=== PATIENT | male | born 1950 | race Caucasian/White ===

== ENCOUNTER 2018-10-13 19:20 | Observation (INO) ==
[2018-10-13] MEDS ORDERED: Nitroglycerin 0.4 MG TAB.SUBL SL PRN (19:55)
[2018-10-13 20:04] LABS: Basophils # 0.1 K/mcL (0.0-0.2); Basophils % 0.5 %; Eosinophils # 0.2 K/mcL (0.0-0.6); Eosinophils % 1.6 %; Hematocrit 47.6 % (37.5-50.1); Hemoglobin 15.7 g/dL (12.9-16.9); Immature Granulocytes % 0.3 % (0-4); Lymphocytes # 1.3 K/mcL (0.6-4.6); Lymphocytes % 11.6 %; Mean Corpuscular Hemoglobin 30.2 pg (28.0-33.3); Mean Corpuscular Volume 91.5 fL (83.0-100.0); Mean Platelet Volume 11.7 fL (9.4-12.4); Monocytes # 0.7 K/mcL (0.0-1.3); Monocytes % 6.6 %; Neutrophils # 8.6 K/mcL (1.6-8.9); Platelet Count 205 K/mcL (140-400); Red Cell Distribution Width 13.2 % (11.5-14.5); Segmented Neutrophils % 79.4 %
[2018-10-13 20:13] LABS: INR 2.3; Prothrombin Time 25.7 Seconds (9.4-12.1)
[2018-10-13 20:16] LABS: Activated Partial Thrombo Time 62.6 Seconds (26.0-36.0)
[2018-10-13 20:26] LABS: BUN/Creatinine Ratio 22 (6-26); Blood Urea Nitrogen 22 mg/dL (8-23); Calcium 9.3 mg/dL (8.6-10.3); Carbon Dioxide 29 mEq/L (23-29); Chloride 101 mEq/L (98-107); Glucose 194 mg/dL (70-105); Osmolality,Calculated 295 (280-300); Potassium 3.4 mEq/L (3.5-5.1); Sodium 138 mEq/L (136-145); eGFR For Non-African Americans > 60 (> 60)
[2018-10-13 20:36] LABS: Troponin I 0.08 ng/mL (< 0.04)
--- NOTE | 2018-10-13 20:42 | Emergency Department Note ---
Disposition Clinical Impression: Elevated troponin Chest pain Qualifiers: Chest pain type: precordial pain Qualified Code(s): R07.2 - Precordial pain Atrial fibrillation Qualifiers: Atrial fibrillation type: unspecified Qualified Code(s): I48.91 - Unspecified atrial fibrillation Congestive heart failure Qualifiers: Heart failure type: systolic Heart failure chronicity: chronic Qualified Code(s): I50.22 - Chronic systolic (congestive) heart failure Disposition: Admitted As Inpatient SOB HPI - General Chief Complaint: ED Shortness of Breath/Dyspnea Stated Complaint: SOB Time Seen by Provider: 10/13/18 19:36 Source: patient, family Limitations: no limitations Nursing Notes Reviewed: Yes Vital Signs Reviewed: Yes - History of Present Illness Patient is a 68-year-old male who presents emergency department with complaints of chest pain and shortness of breath. The patient was reportedly out at dinner and walking when he began to feel short of breath with chest pressure which he describes as dull and bilateral. He took 1 nitroglycerin without improvement in his pain. He notes that he was discharged and doing well on his medications, following his fluid restriction diet. He last followed up with Dr. Bland this week. Otherwise he denies any dizziness, back pain, abdominal pain, nausea, vomiting, diarrhea, epistaxis, hematemesis, or melena. The patient was recently admitted and underwent cardiac catheterization with placement of 2 stents. He was discharged on 09/02/18 after undergoing cardiac catheterization with stenting of the LAD. He was found to have EF of 40-45% with LV systolic dysfunction and new onset atrial fibrillation for which he was placed on metoprolol, eliquis, plavix, and aspirin. - Related Data Home Medications Medication Instructions Recorded Confirmed RX: Glucosamine HCl/Chondr Foy A Na 1 tab PO DAILY 03/27/17 09/26/18 [[facility] Glucosamine-Ch[facility]r Tablet] RX: Omeprazole [PriLOSEC] 40 mg PO DAILY 03/27/17 09/26/18 RX: Zolpidem [Ambien] 10 mg PO HS PRN 03/27/17 09/27/18 RX: Acetaminophen [Tylenol 650 mg PO Q48H 09/26/18 09/26/18 Arthritis] RX: Gabapentin [Neurontin] 300 mg PO QID 09/26/18 09/26/18 RX: Lisinopril-HCTZ 10-12.5 2 each PO DAILY 09/26/18 09/26/18 [Prinzide 10-12.5] Previous Rx's Medication Instructions Recorded Apixaban [Eliquis] 5 mg PO BID #60 tablet 09/27/18 RX: Aspirin 81 mg PO DAILY #30 tab.chew 10/04/18 RX: Atorvastatin [Lipitor] 40 mg PO HS #30 tablet 10/04/18 RX: Clopidogrel [Plavix] 75 mg PO DAILY #30 tablet 10/04/18 RX: Diltiazem CD (24hr) [Cardizem 180 mg PO DAILY #30 cap.er.24h 10/04/18 CD] RX: Furosemide [Lasix] 40 mg PO BID #120 tablet 10/04/18 RX: Metoprolol XL (24 HR) Succ 150 mg PO DAILY #90 tab.er.24h 10/04/18 [Toprol Xl] RX: Nitroglycerin 0.4 mg SL Q5MIN PRN #30 tab.subl 10/04/18 RX: Potassium Chloride 40 meq PO DAILY #60 tab.er.prt 10/04/18 RX: metOLazone [Zaroxolyn] 2.5 mg PO DAILY #30 tablet 10/04/18 Allergies Allergy/AdvReac Type Severity Reaction Status Date / Time No Known Allergies Allergy Verified 10/13/18 19:29 Review of Systems: ROS per history of present illness, all other systems reviewed and negative or normal. All systems ED: reviewed and negative except as stated. Review of Systems: As Per HPI Past Medical History - Past Medical History Medical history: Reports: arthritis, atrial fibrillation, CHF, coronary artery disease, GERD, hypertension Surgical history: Reports: appendectomy, herniorrhaphy, orthopedic, other Psychiatric history: Reports: no psych history - Social History Smoking Status: Never smoker Smokeless Tobacco Status: No Alcohol use: Reports: none Drug use: Reports: none Physical Exam General: Conversant. No apparent distress. Follow commands. Appears stated age. Neck: No JVD. Trachea midline. Neck supple. Eyes: PERRL. No scleral icterus. HENT: Normocephalic and atraumatic. Moist mucus membranes. Cardiovascular: Regular rate and rhythm. Normal S1 and S2. No murmurs appreciated. Normal capillary refill. Extremities well perfused with 2+ distal pulses bilaterally. Mild edema on right lower extremity. No chest wall tenderness. Pulmonary: Normal and equal breath sounds bilaterally, anteriorly and posteriorly. No wheezes, rales, or rhonchi. Not in respiratory distress. Speaks in full sentences. Abdomen: Soft, nondistended, and tontender. No bruits or masses. No guarding. Neuro: Alert and oriented x3. No slurred speech. No focal deficits noted. Skin: No rashes noted on visualized skin. Musculoskeletal: No bony abnormalities visualized. Moves all extremities. Psych: Normal mood. Pleasant. Makes appropriate eye contact. - General Limitations: no limitations General appearance: alert Course - Reevaluation(s) Reevaluation #1: Discussed case with oncall automatic print developer, Dr. Mendez who recommends placing the patient on heparin drip and will consult to see the patient Time: 21:15 Vital Signs Temperature 98.1 F 10/13/18 19:30 Pulse Rate 75 10/13/18 19:30 Respiratory Rate 15 10/13/18 19:30 Blood Pressure 140/98 10/13/18 19:30 O2 Sat by Pulse Oximetry 94 10/13/18 19:30 Temperature 98.1 F 10/13/18 19:30 Pulse Rate 96 10/13/18 20:18 Respiratory Rate 18 10/13/18 20:18 Blood Pressure 122/103 10/13/18 20:18 O2 Sat by Pulse Oximetry 96 10/13/18 20:18 Oxygen Delivery Oxygen Delivery Nasal Cannula Shortness of Breath/Dyspnea - [facility] Narrative Medical decision making narrative: 68-year-old male with history of CAD, CHF who presents the emergency department with plans of shortness of breath and chest pain. The patient had recent cardiac catheterization and was found to have new onset A. fib at that time with global LV diastolic dysfunction. The patient on arrivals vital signs are stable. Did give the patient nitroglycerin without significant improvement in his symptoms. Obtained laboratory evaluation for ACS including CBC, BMP, troponin, EKG and chest x-ray. Troponin elevated at 0.08. Troponin showed ST depression in aVF of ultimately 1 mm without reciprocal changes. Otherwise the patient persists in A. fib. The patient's continued symptoms and significant cardiac history did contact automatic print developer on-call, Dr. Mendez who agrees with plan for admission and recommends heparin drip, noting that there is no need to wait until he is 12 hours out from taking his eliquis. Patients heparin to be followed by PTT given his ooutpatient use of eliquis. Discussed case with on- call hospitalist Dr. Herzog who agrees with plan for admission and accepts the patient to the inpatient service. Patient agrees with and understands course of treatment plan including plan for admission. All questions answered. - Medical Records Medical records reviewed: Yes I reviewed the patient's medical records. - Lab Data Lab results reviewed: Yes I reviewed the patient's lab results. Result diagrams: 10/13/18 19:48 10/13/18 19:48 Lab Results 10/13/18 10/13/18 10/13/18 Range/Units 19:48 19:48 19:48 WBC 10.8 (4.3-11.1) K/mcL RBC 5.20 (4.19-5.50) M/mcL Hgb 15.7 (12.9-16.9) g/dL Hct 47.6 (37.5-50.1) % MCV 91.5 (83.0-100.0) fL MCH 30.2 (28.0-33.3) pg MCHC 33.0 (31.6-35.5) g/dL RDW 13.2 (11.5-14.5) % Plt Count 205 (140-400) K/mcL MPV 11.7 (9.4-12.4) fL Immature Gran % 0.3 (0-4) % Seg Neutrophils % 79.4 % Lymphocytes % 11.6 % Monocytes % 6.6 % Eosinophils % 1.6 % Basophils % 0.5 % Neutrophils # 8.6 (1.6-8.9) K/mcL Lymphocytes # 1.3 (0.6-4.6) K/mcL Monocytes # 0.7 (0.0-1.3) K/mcL Eosinophils # 0.2 (0.0-0.6) K/mcL Basophils # 0.1 (0.0-0.2) K/mcL PT 25.7 H (9.4-12.1) Seconds INR 2.3 APTT 62.6 H (26.0-36.0) Seconds Heparin Anti-Xa, Unfract (0.30-0.70) IU/mL Sodium 138 (136-145) mEq/L Potassium 3.4 L (3.5-5.1) mEq/L Chloride 101 (98-107) mEq/L Carbon Dioxide 29 (23-29) mEq/L BUN 22 (8-23) mg/dL Creatinine 0.99 (0.70-1.30) mg/dL Est GFR ( Amer) > 60 (> 60) Est GFR (Non-Af Amer) > 60 (> 60) BUN/Creatinine Ratio 22 (6-26) Glucose 194 H (70-105) mg/dL Calculated Osmolality 295 (280-300) Calcium 9.3 (8.6-10.3) mg/dL Troponin I 0.08 H* (< 0.04) ng/mL 10/13/18 Range/Units 21:38 WBC (4.3-11.1) K/mcL RBC (4.19-5.50) M/mcL Hgb (12.9-16.9) g/dL Hct (37.5-50.1) % MCV (83.0-100.0) fL MCH (28.0-33.3) pg MCHC (31.6-35.5) g/dL RDW (11.5-14.5) % Plt Count (140-400) K/mcL MPV (9.4-12.4) fL Immature Gran % (0-4) % Seg Neutrophils % % Lymphocytes % % Monocytes % % Eosinophils % % Basophils % % Neutrophils # (1.6-8.9) K/mcL Lymphocytes # (0.6-4.6) K/mcL Monocytes # (0.0-1.3) K/mcL Eosinophils # (0.0-0.6) K/mcL Basophils # (0.0-0.2) K/mcL PT (9.4-12.1) Seconds INR APTT (26.0-36.0) Seconds Heparin Anti-Xa, Unfract 1.14 H* (0.30-0.70) IU/mL Sodium (136-145) mEq/L Potassium (3.5-5.1) mEq/L Chloride (98-107) mEq/L Carbon Dioxide (23-29) mEq/L BUN (8-23) mg/dL Creatinine (0.70-1.30) mg/dL Est GFR ( Amer) (> 60) Est GFR (Non-Af Amer) (> 60) BUN/Creatinine Ratio (6-26) Glucose (70-105) mg/dL Calculated Osmolality (280-300) Calcium (8.6-10.3) mg/dL Troponin I (< 0.04) ng/mL - Radiology Data Radiology results reviewed: Yes I reviewed the patient's radiology results. Chest X-Ray 10/13/18 19:38 IMPRESSION: The heart is borderline to mildly enlarged. Clear lungs. D/ / Vini Vidal MD / Vini Vidal MD Interpreting Provider: Vini Vidal MD - EKG Data EKG attestation: Yes I reviewed and interpreted this EKG. EKG results narrative: Atrial fibrillation rate of 82. There is small ST depression less than 1 mm in aVF without reciprocal changes otherwise no significant changes from his previous on 09/30/18 Attestation Statement - Attestation Attestation: Resident Attestation: I examined this patient and my medical decision making was reviewed with the Resident Physician. I agree with the documented findings, disposition and treatment plan as described except to the extent set forth below. We independently had [id number] contact with the patient. Patient presented for evaluation of chest pain shortness of breath. Patient underwent recent stent placement. Patient with continued symptoms on exertion. Patient's symptoms started mild yesterday. Worse today. Patient describes pressure in the chest and shortness of breath that are similar to chest pain prior to stent placement. Patient with EKG changes to the lateral leads. No STEMI. Patient will undergo further evaluation for underlying cardiac etiology and will require admission for further management. Patient no acute distress, regular rhythm, clear to auscultation bilaterally, no significant swelling in the lower extremities.
[2018-10-13] MEDS ORDERED: *HR* Heparin 5,000 UNIT/ML VIAL IVP PRN ×2 (21:25)
[2018-10-13] MEDS ORDERED: *HR* Heparin 5,000 UNIT/ML VIAL IVP ONE (21:25)
[2018-10-13] MEDS ORDERED: Aspirin 81 MG TAB.CHEW PO STA (21:27)
[2018-10-13] MEDS: Heparin 25,000 UNIT/250 ML D5W 25,000 UNIT/250 ML IV.SOLN IVC SCH (23:35)
[2018-10-14] MEDS ORDERED: Naloxone 0.4 MG/ML INJ IVP PRN (01:44)
[2018-10-14] MEDS ORDERED: Nitroglycerin 0.4 MG TAB.SUBL SL PRN (01:48)
--- NOTE | 2018-10-14 01:50 | Internal Med History&Physical ---
Date of Encounter: 10/14/18 Time of Encounter: 01:49 Internal Medicine - H&P: HPI Chief complaint: Chest Pain History of present illness: Mr. Lambert is a 68 year old male who presents emergency department with complaints of chest pain and shortness of breath. The patient was reportedly out at dinner and walking when he began to feel short of breath with chest pressure which he describes as dull and bilateral. He took 1 nitroglycerin without improvement in his pain. He notes that he was discharged and doing well on his medications, following his fluid restriction diet. He last followed up with Dr. Bland this week. Otherwise he denies any dizziness, back pain, abdominal pain, nausea, vomiting, diarrhea, epistaxis, hematemesis, or melena. The patient was recently admitted and underwent cardiac catheterization with placement of 2 stents. He was discharged on 09/02/18 after undergoing cardiac catheterization with stenting of the LAD. He was found to have EF of 40-45% with LV systolic dysfunction and new onset atrial fibrillation for which he was placed on metoprolol, eliquis, plavix, and aspirin. Troponin elevated at 0.08. Troponin showed ST depression in aVF of ultimately 1 mm without reciprocal changes. Otherwise the patient persists in A. fib. The patient's continued symptoms and significant cardiac history did contact bulb sorter on-call, Dr. Mendez who agrees with plan for admission and recommends heparin drip. No reports of chest pain at this time. Past Med Surg Social Fam HX - Past Medical History Medical history: arthritis, atrial fibrillation, CHF, coronary artery disease, GERD, hypertension Psychiatric history: no psych history - Past Surgical History Surgical History: appendectomy, herniorrhaphy, orthopedic, other Additional surgical history: foot drop bilaterally, Right hip surgery, left knee replacement. - Social History Smoking Status: Never smoker Smokeless Tobacco Status: No Alcohol use: none Drug use: none - Family History Mother Living Status: Hx Family Cancer: Yes Father Living Status: Hx Family Endocrine Disorder: Yes (Pts father was diabetic) Internal Medicine - H&P: Meds Glucosamine HCl/Chondr Foy A Na [[facility] Glucosamine-Chondr Tablet] 1 tab PO DAILY 03/27/17 [History] Omeprazole [PriLOSEC] 40 mg PO DAILY 03/27/17 [History] Zolpidem [Ambien] 10 mg PO HS PRN 03/27/17 [History] Acetaminophen [Tylenol Arthritis] 650 mg PO Q48H 09/26/18 [History] Gabapentin [Neurontin] 300 mg PO QID 09/26/18 [History] Apixaban [Eliquis] 5 mg PO BID #60 tablet 09/27/18 [Rx] Aspirin 81 mg PO DAILY #30 tab.chew 10/04/18 [Rx] Atorvastatin [Lipitor] 40 mg PO HS #30 tablet 10/04/18 [Rx] Clopidogrel [Plavix] 75 mg PO DAILY #30 tablet 10/04/18 [Rx] Furosemide [Lasix] 40 mg PO BID #120 tablet 10/04/18 [Rx] Nitroglycerin 0.4 mg SL Q5MIN PRN #30 tab.subl 10/04/18 [Rx] Potassium Chloride 40 meq PO DAILY #60 tab.er.prt 10/04/18 [Rx] Entresto 24 mg-26 mg Tablet 1 mg PO DAILY 10/14/18 [History] Metoprolol XL (24 HR) Succ [Toprol Xl] 200 mg PO DAILY 10/14/18 [History] Tramadol HCl [Ultram] 50 mg PO BID PRN 10/14/18 [History] Allergy/AdvReac Type Severity Reaction Status Date / Time No Known Allergies Allergy Verified 10/13/18 19:29 All Systems PM: A 10-system review of systems was performed and is negative for pertinent findings except as documented above in the HPI. - Constitutional Vitals: Temp Pulse Resp BP Pulse Ox 97.7 F 86 18 134/103 94 10/14/18 00:14 10/14/18 00:14 10/14/18 00:14 10/14/18 00:14 10/14/18 00:14 Exam: General: Alert and oriented 3 lying in bed in no acute distress Skin:Normal color, no rash, no lesions. HEENT:EOM, pupils equal, round and reactive. Cardiovascular:Normal S1 & S2, no rubs, murmurs or gallops. No JVD. Pulse regular. Lungs:Normal breath sounds, no wheezes or crackles. Abdomen:Soft, non-tender, no rigidity. Extremities:No deformity, no edema or tenderness, no joint swelling or clubbing. Neurological:Normal cognition and motor skills. Pulses:Carotid and radial pulses normal +2. Rest of the physical exam is non contributory Internal Med - H&P Results - Labs CBC & Chem 7: 10/14/18 02:19 10/14/18 02:19 Labs: Short CBC 10/13/18 Range/Units 19:48 WBC 10.8 (4.3-11.1) K/mcL Hgb 15.7 (12.9-16.9) g/dL Hct 47.6 (37.5-50.1) % Plt Count 205 (140-400) K/mcL Neutrophils # 8.6 (1.6-8.9) K/mcL BMP 10/13/18 19:48 Sodium 138 Potassium 3.4 L Chloride 101 Carbon Dioxide 29 BUN 22 Creatinine 0.99 Glucose 194 H Calcium 9.3 Cardiac Enzymes 10/13/18 Range/Units 19:48 Troponin I 0.08 H* (< 0.04) ng/mL - Impressions ITS Impressions Chest X-Ray 10/13/18 19:38 IMPRESSION: The heart is borderline to mildly enlarged. Clear lungs. D/ / Vini Vidal MD / Vini Vidal MD Interpreting Provider: Vini Vidal MD - Assessment and Plan (1) Chest pain Current Visit: Yes Status: Acute Assessment and plan: Patient presents with pressure-like chest pain radiating to his head; worse on exertion associated with shortness of breath. Recently underwent stent placement. Troponin of 0.08, however, appears to be chronically elevated. EKG shows atrial fibrillation with nonspecific ST changes. Patient was started on heparin drip after discussion with cardiology. -Telemetry -Continue with heparin drip -Patient had recent echocardiogram performed which showed global left ventricular systolic dysfunction with an EF of 40-45% -Cardiology consulted Qualifiers: Chest pain type: unspecified Qualified Code(s): R07.9 - Chest pain, unspecified (2) Elevated troponin Current Visit: Yes Status: Acute Assessment and plan: Elevated troponin of 0.08. Appears to be chronically elevated since the end of August. We will continue to trend for now. (3) Atrial fibrillation Current Visit: Yes Status: Chronic Assessment and plan: History of atrial fibrillation rate controlled on anticoagulation. Qualifiers: Atrial fibrillation type: unspecified Qualified Code(s): I48.91 - Unspecified atrial fibrillation (4) Diabetes mellitus, type 2 Current Visit: No Status: Chronic Qualifiers: Diabetes mellitus salvage determiner insulin use: without correction use Diabetes mellitus complication status: with hyperglycemia Qualified Code(s): E11.65 - Type 2 diabetes mellitus with hyperglycemia (5) DVT prophylaxis Current Visit: No Status: Acute Assessment and plan: Currently on heparin drip (6) Acute systolic CHF (congestive heart failure), NYHA class 3 Current Visit: No Status: Acute Assessment and plan: Continue medical management. No evidence of acute exacerbation. - Time Spent With Patient Total time spent is greater than 50% in coordination of care (as documented) at patient's floor/unit and/or counseling patient:
[2018-10-14 02:33] LABS: Basophils # 0.1 K/mcL (0.0-0.2); Basophils % 0.5 %; Eosinophils # 0.1 K/mcL (0.0-0.6); Eosinophils % 1.2 %; Hematocrit 45.1 % (37.5-50.1); Hemoglobin 14.6 g/dL (12.9-16.9); Immature Granulocytes % 0.4 % (0-4); Lymphocytes # 0.7 K/mcL (0.6-4.6); Lymphocytes % 6.7 %; Mean Corpuscular HGB Conc 32.4 g/dL (31.6-35.5); Mean Corpuscular Hemoglobin 29.6 pg (28.0-33.3); Mean Corpuscular Volume 91.5 fL (83.0-100.0); Mean Platelet Volume 11.7 fL (9.4-12.4); Monocytes # 0.5 K/mcL (0.0-1.3); Monocytes % 4.4 %; Neutrophils # 9.6 K/mcL (1.6-8.9); Platelet Count 171 K/mcL (140-400); Red Blood Count 4.93 M/mcL (4.19-5.50); Red Cell Distribution Width 13.2 % (11.5-14.5); Segmented Neutrophils % 86.8 %
[2018-10-14 02:53] LABS: Alanine Aminotransferase 28 Units/L (7-52); Albumin 3.9 g/dL (3.5-5.7); Albumin/Globulin Ratio 1.6 (1.1-2.2); Alkaline Phosphatase 55 Units/L (34-104); Aspartate Amino Transferase 22 Units/L (13-39); BUN/Creatinine Ratio 25 (6-26); Bilirubin,Total 1.5 mg/dL (0.3-1.0); Blood Urea Nitrogen 21 mg/dL (8-23); Calcium 9.2 mg/dL (8.6-10.3); Carbon Dioxide 28 mEq/L (23-29); Chloride 101 mEq/L (98-107); Globulin 2.4 g/dL (2.4-3.5); Glucose 140 mg/dL (70-105); Osmolality,Calculated 293 (280-300); Sodium 139 mEq/L (136-145); Total Protein 6.3 g/dL (6.4-8.9); eGFR For Non-African Americans > 60 (> 60)
[2018-10-14] MEDS ORDERED: D5% in Water 1,000 ML IVC PRN ×3 (07:59→16:49)
[2018-10-14] MEDS ORDERED: Dextrose Gel 15 GM/37.5 ML TUBE PO PRN ×3 (07:59→16:49)
[2018-10-14] MEDS ORDERED: *HR* Dextrose 50 % in Water (Syg) 50 ML SYRINGE IVP PRN ×2 (07:59→16:49)
[2018-10-14] MEDS: Furosemide 40 MG TABLET PO SCH ×2 (08:32→17:00)
[2018-10-14] MEDS: Acetaminophen 325 MG TABLET PO SCH (08:32)
[2018-10-14] MEDS: Metoprolol XL (24 HR) Succ 50 MG TAB.ER.24H PO SCH (08:32)
[2018-10-14] MEDS: Gabapentin 300 MG CAPSULE PO SCH ×4 (08:32→20:52)
[2018-10-14] MEDS: Aspirin 81 MG TAB.CHEW PO SCH (08:32)
--- NOTE | 2018-10-14 10:44 | Cardiology Consult Note ---
<JesseRolando Pauline - Last Filed: 10/14/18 10:56> Date of Encounter: 10/14/18 Time of Encounter: 10:42 Assessment and Plan (1) Chest pain Current Visit: Yes Status: Acute Presents to ED for chest pain/tightness radiating to his head, worse upon standing/walking, improved with rest. Associated dyspnea. Reports symptoms have been occurring a few times per week. Reports fatigue. [facility] 09/29/18: There is severe 1V CAD. Patient had successful PTCA/CHRISTIN placement in the mLAD. FFR Measurement: 0.76. Type B dissection in the proximal edge of first placed stent hence a second STENT was deployed proximally. 40% mRCA lesion. CP could be r/t recent dissection. Troponins borderline/chronic--0.08, 0.06, 0.07. Likely demand ischemia with BP as high as 152/115. TTE 09/27/18 EF 40-45%, global. Will repeat TTE. If no significant change on TTE, do not anticipate any further inpt cardiac testing. Will discuss and review with Dr. Dotson. Qualifiers: Chest pain type: unspecified Qualified Code(s): R07.9 - Chest pain, unspecified (2) Systolic CHF with reduced left ventricular function, NYHA class 2 Current Visit: Yes Status: Chronic Systolic CHF diagnosted 08/2018. EF 40-45%. Reports compliance and Na and fluid restriction. Clear lungs on CXR. Continue BB, Entresto. Continue strict I/Os, Na and fluid restriction, daily weights. (3) Elevated troponin Current Visit: Yes Status: Acute Troponin 0.08, 0.06, 0.07--hx of chronically borderline troponins. BP as high as 152/115. Suspect demand ischemia, nondiagnostic for ACS. Await repeat TTE results. If no significant change from previous will stop heparin gtt and restart Eliquis. (4) Cardiomyopathy Current Visit: No Status: Chronic Known ICMP, EF 40-45%. S/P PCI to mLAD. Repeat TTE. Continue BB, Entresto, PO Lasix. Qualifiers: Cardiomyopathy type: ischemic Qualified Code(s): I25.5 - Ischemic cardiomyopathy (5) Atrial fibrillation Current Visit: Yes Status: Chronic Recent diagnosis. Rate controlled on Toprol XL 200mg daily. 12 hr tele AVG HR 84. Anticoagulated on Eliquis 5mg BID. Currently on heparin gtt. If no change on TTE, will restart Eliquis and stop heparin gtt. Qualifiers: Atrial fibrillation type: unspecified Qualified Code(s): I48.91 - Unspecified atrial fibrillation (6) CAD (coronary artery disease) Current Visit: Yes Status: Acute [facility] 09/29/18: There is severe 1V CAD. Patient had successful PTCA/CHRISTIN placement in the mLAD. FFR Measurement: 0.76. Type B dissection in the proximal edge of first placed stent hence a second STENT was deployed proximally. 40% mRCA lesion. DAPT (ASA and Plavix) uninterrupted. Pt reports compliance. Continue Statin, BB, Entresto. Qualifiers: Coronary Disease-Associated Artery/Lesion type: [place] artery [place] vs. transplanted heart: [place] heart Associated angina: angina presence unspecified Qualified Code(s): I25.10 - Atherosclerotic heart disease of [place] coronary artery without angina pectoris Discussion w patient/family: The assessment and plan as outlined above was discussed with the patient and/or family members who expressed understanding and agreement. All questions were answered. Thank you for involving us in the care of your patient. Please call with any questions. I will discuss all the above with Dr. Dotson and make changes as necessary. History of Present Illness Consult date: 10/14/18 Consult reason: Chest pain, elevated troponin Chief complaint: chest pain History of present illness: Mr. Lambert is a 68 year old male with PMH of recently diagnosed A-Fib anticoagulated on Eliquis, CAD s/p PCI to mLAD on 09/29, systolic CHF/CMP with EF 40-45% that presents to ED for chest pain/tightness radiating to his head, worse upon standing/walking, improved with rest. Associated dyspnea. Reports symptoms have been occurring a few times per week. Reports fatigue. Reports compliance with meds and low Na/fluid restriction diet. Troponins 0.08, 0.06, 0.07. Cardiology consulted for further recs. TTE 09/27/18: LVEF 40-45%, global LV systolic dysfunction, moderate-severe cLVH, RV is mildly dilated with mild to moderate systolic dysfunction, bi-atrial enlargement, mild-moderate MR, mild TR and KS. No evidence of PFO with agitated saline contrast. Bubbles observed in the LA/LV after approximately 6 cardiac cycles suggests the presence of pulmonary shunting. IVC is dilated with estimate RA pressure 20 mmHg. [facility] 09/29/18: There is severe one vessel coronary artery disease. Patient had successful PTCA/Drug-Eluting Stent placement in the mid LAD. FFR Measurement: 0.76. Type B dissection in the proximal edge of first placed stent hence a second STENT was deployed proximally. Past Med Surg Social Fam HX - Past Medical History Medical history: arthritis, atrial fibrillation, cardiomyopathy, CHF, coronary artery disease, GERD, hypertension Psychiatric history: no psych history - Past Surgical History Surgical History: appendectomy, herniorrhaphy, orthopedic, other Additional surgical history: foot drop bilaterally, Right hip surgery, left knee replacement. - Social History Smoking Status: Never smoker Smokeless Tobacco Status: No Alcohol use: none Drug use: none - Family History Mother Living Status: Hx Family Cancer: Yes Father Living Status: Hx Family Cardiac Disorders: No Hx Family Respiratory Disorders: No Hx Family Cancer: Yes (pancreatic) Hx Family Endocrine Disorder: Yes (Pts father was diabetic) Medications and Allergies Glucosamine HCl/Chondr Foy A Na [[facility]vs Glucosamine-Chondr Tablet] 1 tab PO DAILY 03/27/17 [History] Omeprazole [PriLOSEC] 40 mg PO DAILY 03/27/17 [History] Zolpidem [Ambien] 10 mg PO HS PRN 03/27/17 [History] Acetaminophen [Tylenol Arthritis] 650 mg PO Q48H 09/26/18 [History] Gabapentin [Neurontin] 300 mg PO QID 09/26/18 [History] Apixaban [Eliquis] 5 mg PO BID #60 tablet 09/27/18 [Rx] Aspirin 81 mg PO DAILY #30 tab.chew 10/04/18 [Rx] Atorvastatin [Lipitor] 40 mg PO HS #30 tablet 10/04/18 [Rx] Clopidogrel [Plavix] 75 mg PO DAILY #30 tablet 10/04/18 [Rx] Furosemide [Lasix] 40 mg PO BID #120 tablet 10/04/18 [Rx] Nitroglycerin 0.4 mg SL Q5MIN PRN #30 tab.subl 10/04/18 [Rx] Potassium Chloride 40 meq PO DAILY #60 tab.er.prt 10/04/18 [Rx] Entresto 24 mg-26 mg Tablet 1 mg PO DAILY 10/14/18 [History] Metoprolol XL (24 HR) Succ [Toprol Xl] 200 mg PO DAILY 10/14/18 [History] Tramadol HCl [Ultram] 50 mg PO BID PRN 10/14/18 [History] Allergy/AdvReac Type Severity Reaction Status Date / Time No Known Allergies Allergy Verified 10/13/18 19:29 All Systems Review: The remainder of the systems were reviewed and are negative - Cardiovascular Cardiovascular: as per HPI, chest pain at rest, chest pain with exertion, dyspnea at rest, dyspnea on exertion, radiating jaw, neck or arm pain - Respiratory Respiratory: dyspnea Physical Examination Vital Signs, Last 4 Hours Temp Pulse Resp BP Pulse Ox 10/14/18 07:15 98.5 F 81 16 112/84 97 Vital Signs Temp Pulse Resp BP Pulse Ox 10/14/18 07:15 98.5 F 81 16 112/84 97 10/14/18 03:47 97.6 F 100 18 124/96 93 10/14/18 02:41 2 10/14/18 00:14 97.7 F 86 18 134/103 94 10/13/18 23:33 64 16 145/112 97 10/13/18 23:14 59 19 152/115 96 10/13/18 21:30 81 131/103 97 10/13/18 21:00 77 130/113 96 10/13/18 20:33 83 24 124/96 95 10/13/18 20:18 96 18 122/103 96 10/13/18 20:16 84 18 146/100 96 10/13/18 20:00 140/106 10/13/18 19:51 98 10/13/18 19:30 98.1 F 75 15 140/98 94 Intake and Output 10/13/18 10/14/18 10/14/18 23:59 07:59 15:59 Intake Total 72 / 72 Output Total 125 / 125 200 / 200 Balance -53 / -53 -200 / -200 Intake: IV Fluids 72 / 72 Heparin 25,000 UNIT/250 ML D5W 72 / 72 25,000 unit In 250 ml @ 8.97 UNIT/KG/HR 10.009 mls/hr IVC . Q24H [facility] Rx#:[id number] Oral 0 / 0 Output: Urine 125 / 125 200 / 200 Other: # Voids 0 Weight 111.584 kg 114.1 kg Patient Weight 10/14/18 23:59 Weight 114.1 kg General: Conversant, No Apparent Distress HEENT: Atraumatic, Normocephaly, Mucus Membranes Moist Neck: No JVD, Normal carotid pulses Cardiac: Other (irregularly irregular rhythm) Lungs: Normal Breath Sounds, No Wheeze, Rales, Rhonchi Neuro: Alert and responsive, No focal deficits noted Abdomen: Soft, Non-Tender Skin: No rashes noted on visualized skin Musculoskeletal: No Chest Wall Tenderness Extremities: No Clubbing, No Cyanosis, No Edema, Normal Pulses Results 10/14/18 02:19 10/14/18 02:19 Lab Results 10/13/18 10/13/18 10/13/18 19:48 19:48 19:48 WBC 10.8 Hgb 15.7 Hct 47.6 Plt Count 205 INR 2.3 APTT 62.6 H Sodium 138 Potassium 3.4 L Chloride 101 Carbon Dioxide 29 BUN 22 Creatinine 0.99 Glucose 194 H Calcium 9.3 Total Bilirubin AST ALT Alkaline Phosphatase Troponin I 0.08 H* 10/14/18 10/14/18 10/14/18 02:19 02:19 02:19 WBC 11.0 Hgb 14.6 Hct 45.1 Plt Count 171 INR APTT Sodium 139 Potassium 3.0 L Chloride 101 Carbon Dioxide 28 BUN 21 Creatinine 0.83 Glucose 140 H Calcium 9.2 Total Bilirubin 1.5 H AST 22 ALT 28 Alkaline Phosphatase 55 Troponin I 0.06 H* 10/14/18 09:12 WBC Hgb Hct Plt Count INR APTT Sodium Potassium Chloride Carbon Dioxide BUN Creatinine Glucose Calcium Total Bilirubin AST ALT Alkaline Phosphatase Troponin I 0.07 H* Short CBC 10/14/18 10/13/18 Range/Units 02:19 19:48 WBC 11.0 10.8 (4.3-11.1) K/mcL Hgb 14.6 15.7 (12.9-16.9) g/dL Hct 45.1 47.6 (37.5-50.1) % Plt Count 171 205 (140-400) K/mcL Neutrophils # 9.6 H 8.6 (1.6-8.9) K/mcL BMP 10/14/18 10/13/18 Range/Units 02:19 19:48 Sodium 139 138 (136-145) mEq/L Potassium 3.0 L 3.4 L (3.5-5.1) mEq/L Chloride 101 101 (98-107) mEq/L Carbon Dioxide 28 29 (23-29) mEq/L BUN 21 22 (8-23) mg/dL Creatinine 0.83 0.99 (0.70-1.30) mg/dL Glucose 140 H 194 H (70-105) mg/dL Calcium 9.2 9.3 (8.6-10.3) mg/dL Cardiac Enzymes 10/14/18 10/14/18 10/13/18 Range/Units 09:12 02:19 19:48 Troponin I 0.07 H* 0.06 H* 0.08 H* (< 0.04) ng/mL Liver Function 10/14/18 Range/Units 02:19 Total Bilirubin 1.5 H (0.3-1.0) mg/dL AST 22 (13-39) Units/L ALT 28 (7-52) Units/L Alkaline Phosphatase 55 (34-104) Units/L Albumin 3.9 (3.5-5.7) g/dL Impressions Chest X-Ray 10/13/18 19:38 IMPRESSION: The heart is borderline to mildly enlarged. Clear lungs. D/ / Vini Vidal MD / Vini Vidal MD Interpreting Provider: Vini Vidal MD Active Medications Acetaminophen (Tylenol) 650 mg PO Q48H DANY Stop: 04/15/19 07:46 Last Admin: 10/14/18 08:32 Dose: 650 mg Aspirin (Aspirin) 81 mg PO DAILY DANY Stop: 04/15/19 09:01 Last Admin: 10/14/18 08:32 Dose: 81 mg Atorvastatin Calcium (Lipitor) 40 mg PO HS DANY Stop: 04/15/19 21:01 Clopidogrel Bisulfate (Plavix) 75 mg PO DAILY DANY Stop: 04/15/19 09:01 Last Admin: 10/14/18 08:32 Dose: 75 mg Dextrose/Water (Dextrose 50% (Syg)) 25 ml IVP AD PRN PRN Reason: Hypoglycemia Stop: 04/15/19 08:00 Furosemide (Lasix) 40 mg PO BIDDIURETIC DANY Stop: 04/15/19 09:01 Last Admin: 10/14/18 08:32 Dose: 40 mg Gabapentin (Neurontin) 300 mg PO QID DANY Stop: 04/15/19 09:01 Last Admin: 10/14/18 08:32 Dose: 300 mg Glucagon (Glucagen) 1 mg IM ONCE PRN PRN Reason: Hypoglycemia Stop: 04/15/19 08:00 Glucose (Gluctose) 15 gm PO ONCE PRN PRN Reason: Hypoglycemia Stop: 04/15/19 08:00 Glucose (Gluctose) 30 gm PO ONCE PRN PRN Reason: Hypoglycemia Stop: 04/15/19 08:00 Heparin Sodium (Porcine) (Heparin) 4,000 unit IVP Q6HR PRN PRN Reason: SEE COMMENTS Stop: 04/14/19 21:26 Heparin Sodium (Porcine) (Heparin) 2,000 unit IVP Q6H PRN PRN Reason: SEE COMMENTS Stop: 04/14/19 21:26 Heparin Sodium/Dextrose (Heparin 25,000 Unit/250 Ml D5w) 25,000 unit in 250 mls @ 10.009 mls/hr IVC .Q24H DANY; Protocol Stop: 04/14/19 21:31 Last Titration: 10/14/18 07:48 Dose: 5.97 unit/kg/hr, 6.7 mls/hr Dextrose (Dextrose 5%) 1,000 mls @ 100 mls/hr IVC .Q10H PRN PRN Reason: HYPOGLYCEMIA Stop: 04/15/19 08:00 Insulin Human Lispro (Humalog) 0 units SQ Q6HR [facility]; Protocol Stop: 04/15/19 12:01 Metoprolol Succinate (Toprol Xl) 200 mg PO DAILY [facility] Stop: 04/15/19 09:01 Last Admin: 10/14/18 08:32 Dose: 200 mg Naloxone HCl (Narcan) 0.4 mg IVP Q2M PRN PRN Reason: SEE COMMENTS Stop: 04/15/19 01:45 Nitroglycerin (Nitroglycerin) 0.4 mg SL Q5MIN PRN PRN Reason: Chest Pain Stop: 04/15/19 01:49 Omeprazole (Prilosec) 40 mg PO DAILY [facility] Stop: 04/15/19 09:01 Last Admin: 10/14/18 08:32 Dose: 40 mg Sacubitril/Valsartan (Entresto 24 Mg-26 Mg Tablet) 1 tab PO DAILY DANY Stop: 04/15/19 09:01 Tramadol HCl (Ultram) 50 mg PO BID PRN PRN Reason: Pain Stop: 04/15/19 07:37 Zolpidem Tartrate (Ambien) 10 mg PO HS PRN; Protocol PRN Reason: Sleep Stop: 04/15/19 07:37 - Imaging and Cardiology Echo: report reviewed Cardiac cath: report reviewed - EKG Interpretation EKG results cardiology: personally reviewed (A-Fib rate 82), other (12 hr tele AVG HR 84, A-Fib) Consult Discharge Plan - Plan Referrals: Lluvia Palomino, [employer] [Primary Care Provider] - <Jose Alberto Dotson - Last Filed: 10/14/18 14:16> Date of Encounter: 10/14/18 - Attending Attestation Patient was seen and evaluated independently by me. Findings, assessment and plan were discussed at length with patient, questions answered. Agree with nurse practitioner's/resident's documentation. Addition as follows, 68 yoCM ho CAD recent CHRISTIN-mLAD with RCA 40% 2 wks ago for NSTEMI, HFrEF EF 40- 45%, persistent Afib. P/w recurrent typical and atypical chest pain with hypertension while awaiting transition from lisinopril to entresto (36hr washing out phase). Mildly elevated troponin 0.07 similar to last admission. A fib rate ctr ok. Euvolemia on exam. A: Chest pain, angina vs other etiology HTN during transition from lisinopril to entrestro Mild troponin elevation, type II or myocardial injury CAD recent mLAD CHRISTIN, RCA 40% HFrEF EF 40-45%, Persistent Afib, rate ctr ok, on eliquis P: limited echo for new WMA watch BP ctr on entresto add imdur if fails two anti-anginal meds, will consider SPECT d/c heprin drip, restart eliquis Jose Alberto Dotson MD, PhD Assessment and Plan Discussion w patient/family: The assessment and plan as outlined above was discussed with the patient and/or family members who expressed understanding and agreement. All questions were answered. Thank you for involving us in the care of your patient. Please call wi th any questions. History of Present Illness History of present illness: Mr. Lambert is a 68 year old male All Systems Review: The remainder of the systems were reviewed and are negative Physical Examination Vital Signs, Last 4 Hours Temp Pulse Resp BP Pulse Ox 10/14/18 11:22 97.7 F 75 17 136/102 91 Results 10/14/18 02:19 10/14/18 02:19 Lab Results 10/13/18 10/13/18 10/13/18 19:48 19:48 19:48 WBC 10.8 Hgb 15.7 Hct 47.6 Plt Count 205 INR 2.3 APTT 62.6 H Sodium 138 Potassium 3.4 L Chloride 101 Carbon Dioxide 29 BUN 22 Creatinine 0.99 Glucose 194 H Calcium 9.3 Total Bilirubin AST ALT Alkaline Phosphatase Troponin I 0.08 H* 10/14/18 10/14/18 10/14/18 02:19 02:19 02:19 WBC 11.0 Hgb 14.6 Hct 45.1 Plt Count 171 INR APTT Sodium 139 Potassium 3.0 L Chloride 101 Carbon Dioxide 28 BUN 21 Creatinine 0.83 Glucose 140 H Calcium 9.2 Total Bilirubin 1.5 H AST 22 ALT 28 Alkaline Phosphatase 55 Troponin I 0.06 H* 10/14/18 09:12 WBC Hgb Hct Plt Count INR APTT Sodium Potassium Chloride Carbon Dioxide BUN Creatinine Glucose Calcium Total Bilirubin AST ALT Alkaline Phosphatase Troponin I 0.07 H*
--- NOTE | 2018-10-14 11:58 | Event Note ---
Date of Encounter: 10/14/18 Time of Encounter: 10:00 H&P reviewed. Patient with history of CAD status post recent PCI in August 2018, ischemic cardiomyopathy with EF 40-45%, and atrial fibrillation is admitted for chest pain and mild elevation of troponin. Hep gtt started with resolution of chest pain. Trend troponin, obtain limited echo, and follow up with cardiology recommendation. Resume home meds for CAD and heart failure.
[2018-10-14] MEDS: SACUBITRIL/VALSARTAN 24/26 MG TABLET PO SCH (12:00)
[2018-10-14] MEDS ORDERED: Insulin LISPRO 300 UNITS/3 ML VIAL SQ SCH (12:00)
[2018-10-14] MEDS: Isosorbide MONOnitrate (24 HR) 30 MG TAB.ER.24H PO SCH (13:39)
[2018-10-14] MEDS: Insulin LISPRO 300 UNITS/3 ML VIAL SQ SCH ×2 (19:02→22:48)
[2018-10-14 20:03] LABS: Magnesium 1.9 mg/dL (1.6-2.6); Potassium 3.4 mEq/L (3.5-5.1)
[2018-10-15 07:08] LABS: Basophils # 0.1 K/mcL (0.0-0.2); Basophils % 0.6 %; Eosinophils # 0.1 K/mcL (0.0-0.6); Hematocrit 45.7 % (37.5-50.1); Hemoglobin 14.9 g/dL (12.9-16.9); Immature Granulocytes % 0.4 % (0-4); Lymphocytes # 0.9 K/mcL (0.6-4.6); Lymphocytes % 8.3 %; Mean Corpuscular HGB Conc 32.6 g/dL (31.6-35.5); Mean Corpuscular Hemoglobin 29.9 pg (28.0-33.3); Mean Corpuscular Volume 91.8 fL (83.0-100.0); Monocytes # 0.8 K/mcL (0.0-1.3); Monocytes % 7.6 %; Neutrophils # 8.9 K/mcL (1.6-8.9); Platelet Count 132 K/mcL (140-400); Red Blood Count 4.98 M/mcL (4.19-5.50); Red Cell Distribution Width 13.3 % (11.5-14.5); Segmented Neutrophils % 82.1 %
--- NOTE | 2018-10-15 07:09 | Electrocardiograph Report ---
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
[2018-10-15 07:28] LABS: BUN/Creatinine Ratio 22 (6-26); Blood Urea Nitrogen 14 mg/dL (8-23); Calcium 8.5 mg/dL (8.6-10.3); Carbon Dioxide 27 mEq/L (23-29); Chloride 102 mEq/L (98-107); Glucose 132 mg/dL (70-105); Osmolality,Calculated 292 (280-300); Potassium 3.1 mEq/L (3.5-5.1); Sodium 140 mEq/L (136-145); eGFR For Non-African Americans > 60 (> 60)
[2018-10-15] MEDS: SACUBITRIL/VALSARTAN 24/26 MG TABLET PO SCH (08:20)
[2018-10-15] MEDS: Isosorbide MONOnitrate (24 HR) 30 MG TAB.ER.24H PO SCH (08:20)
[2018-10-15] MEDS: Metoprolol XL (24 HR) Succ 50 MG TAB.ER.24H PO SCH (08:20)
[2018-10-15] MEDS: Gabapentin 300 MG CAPSULE PO SCH ×4 (08:20→21:20)
[2018-10-15] MEDS: Aspirin 81 MG TAB.CHEW PO SCH (08:20)
[2018-10-15] MEDS: Furosemide 40 MG TABLET PO SCH ×2 (08:20→16:39)
[2018-10-15] MEDS: Insulin LISPRO 300 UNITS/3 ML VIAL SQ SCH ×4 (08:23→21:52)
[2018-10-15] MEDS: Heparin 25,000 UNIT/250 ML D5W 25,000 UNIT/250 ML IV.SOLN IVC SCH (10:31)
--- NOTE | 2018-10-15 12:17 | Cardiology Progress Note ---
Date of Encounter: 10/15/18 Time of Encounter: 12:15 Assessment and Plan (1) Chest pain Current Visit: Yes Status: Acute Presents to ED for chest pain/tightness radiating to his head, worse upon standing/walking, improved with rest. Associated dyspnea. Reports symptoms have been occurring a few times per week. Reports fatigue. Similar to prior anginal equivalent. Pt does report increased anxiety--may be contributing. [facility] 09/29/18: There is severe 1V CAD. Patient had successful PTCA/CHRISTIN placement in the mLAD. FFR Measurement: 0.76. Type B dissection in the proximal edge of first placed stent hence a second STENT was deployed proximally. 40% mRCA le otf. Troponins borderline/chronic--0.08, 0.06, 0.07. Likely demand ischemia with BP as high as 152/115. TTE 09/27/18 EF 40-45%, global. Repeat limited TTE LVEF 45-50%, mildly improved. Low normal to mildly reduced LV systolic function. Severe cLVH. Mild global left ventricular systolic dysfunction. Added Imdur 30mg daily yesterday. No recurrent chest pain overnight. No further inpt testing warranted. Will coordinate outpt follow-up in 1-2 weeks. Cardiology signing off. Reconsult PRN. Qualifiers: Chest pain type: unspecified Qualified Code(s): R07.9 - Chest pain, unspecified (2) Systolic CHF with reduced left ventricular function, NYHA class 2 Current Visit: Yes Status: Chronic Systolic CHF diagnosted 08/2018. EF 40-45%. Reports compliance and Na and fluid restriction. Clear lungs on CXR. Continue BB, Entresto. Continue strict I/Os, Na and fluid restriction, daily weights. Repeat TTE EF mildly improved--45-50%. (3) Elevated troponin Current Visit: Yes Status: Acute Troponin 0.08, 0.06, 0.07--hx of chronically borderline troponins. BP as high as 152/115. Suspect demand ischemia, nondiagnostic for ACS. TTE EF improved, 45-50%. Will stop heparin gtt and restart Eliquis. (4) Cardiomyopathy Current Visit: No Status: Chronic Known ICMP, EF 40-45%. S/P PCI to mLAD. Repeat TTE EF improved 45-50%. Continue BB, Entresto, PO Lasix. Qualifiers: Cardiomyopathy type: ischemic Qualified Code(s): I25.5 - Ischemic cardiomyopathy (5) Atrial fibrillation Current Visit: Yes Status: Chronic Recent diagnosis. Rate controlled on Toprol XL 200mg daily. 12 hr tele AVG HR 84. Anticoagulated on Eliquis 5mg BID. Currently on heparin gtt. Will restart Eliquis and stop heparin gtt. Qualifiers: Atrial fibrillation type: unspecified Qualified Code(s): I48.91 - Unspecified atrial fibrillation (6) CAD (coronary artery disease) Current Visit: Yes Status: Acute [facility] 09/29/18: There is severe 1V CAD. Patient had successful PTCA/CHRISTIN placement in the mLAD. FFR Measurement: 0.76. Type B dissection in the proximal edge of first placed stent hence a second STENT was deployed proximally. 40% mRCA lesion. DAPT (ASA and Plavix) uninterrupted. Pt reports compliance. Continue Statin, BB, Entresto. Qualifiers: Coronary Disease-Associated Artery/Lesion type: [place] artery [place] vs. transplanted heart: [place] heart Associated angina: angina presence unspecified Qualified Code(s): I25.10 - Atherosclerotic heart disease of [place] coronary artery without angina pectoris Discussion w patient/family: The assessment and plan as outlined above was discussed with the patient and/or family members who expressed understanding and agreement. All questions were answered. Thank you for involving us in the care of your patient. Please call with any questions. I will discuss all the above with Dr. Dotson and make changes as necessary. Subjective Interval history: Pt denies chest pain overnight. Objective Vital Signs, Last 4 Hours Temp Pulse Resp BP Pulse Ox 10/15/18 11:13 97.6 F 95 16 110/79 94 10/15/18 08:24 97.8 F 90 16 119/95 92 Vital Signs Temp Pulse Resp BP Pulse Ox 10/15/18 11:13 97.6 F 95 16 110/79 94 10/15/18 08:24 97.8 F 90 16 119/95 92 10/15/18 04:45 99.4 F 82 16 116/77 94 10/15/18 00:48 98.9 F 80 16 130/85 96 10/14/18 19:33 99.2 F 71 16 126/86 92 10/14/18 16:58 98.1 F 84 16 122/105 93 Intake and Output 10/14/18 10/15/18 10/15/18 23:59 07:59 15:59 Intake Total 86.7 / 86.7 571.3 / 571.3 Output Total 700 / 700 875 / 875 100 / 100 Balance -613.3 / -613.3 -875 / -875 471.3 / 471.3 Intake: IV Fluids 86.7 / 86.7 91.3 / 91.3 Heparin 25,000 UNIT/250 ML D5W 86.7 / 86.7 91.3 / 91.3 25,000 unit In 250 ml @ 8.97 UNIT/KG/HR 10.009 mls/hr IVC . Q24H [facility] Rx#:[id number] Oral 480 / 480 Output: Urine 700 / 700 875 / 875 100 / 100 Other: Meal Lunch Percent of Meal Consumed 100% Weight 113.3 kg Blood Glucose* 128 172 Patient Weight 10/15/18 23:59 Weight 113.3 kg General: Conversant, No Apparent Distress HEENT: Atraumatic, Normocephaly, Mucus Membranes Moist Neck: No JVD, Normal carotid pulses Cardiac: Other (irregularly irregular rhythm) Lungs: Normal Breath Sounds, No Wheeze, Rales, Rhonchi Neuro: Alert and responsive, No focal deficits noted Abdomen: Soft, Non-Tender Skin: No rashes noted on visualized skin Musculoskeletal: No Chest Wall Tenderness Extremities: No Clubbing, No Cyanosis, No Edema, Normal Pulses Results 10/15/18 06:32 10/15/18 06:32 Lab Results 10/14/18 10/15/18 10/15/18 19:34 06:32 06:32 WBC 10.8 Hgb 14.9 Hct 45.7 Plt Count 132 L Sodium 140 Potassium 3.4 L 3.1 L Chloride 102 Carbon Dioxide 27 BUN 14 Creatinine 0.65 L Glucose 132 H Calcium 8.5 L Magnesium 1.9 Short CBC 10/15/18 Range/Units 06:32 WBC 10.8 (4.3-11.1) K/mcL Hgb 14.9 (12.9-16.9) g/dL Hct 45.7 (37.5-50.1) % Plt Count 132 L (140-400) K/mcL Neutrophils # 8.9 (1.6-8.9) K/mcL BMP 10/15/18 10/14/18 Range/Units 06:32 19:34 Sodium 140 (136-145) mEq/L Potassium 3.1 L 3.4 L (3.5-5.1) mEq/L Chloride 102 (98-107) mEq/L Carbon Dioxide 27 (23-29) mEq/L BUN 14 (8-23) mg/dL Creatinine 0.65 L (0.70-1.30) mg/dL Glucose 132 H (70-105) mg/dL Calcium 8.5 L (8.6-10.3) mg/dL Impressions Echocardiogram Limited Views 10/14/18 07:40 Impressions: LVEF 45-50%. Low normal to mildly reduced LV systolic function. Severe concentric left ventricular hypertrophy. Mild global left ventricular systolic dysfunction. Left Ventricular Wall Motion: Rest Echo Findings The apex, apical inferior, mid inferior, basal inferior, apical anterior, mid anterior, basal anterior, apical septal, mid inferior septal, basal inferior septal, apical lateral, mid anterior lateral, basal anterior lateral, mid anterior septal, mid inferior lateral, basal anterior septal and basal inferior lateral khanna were hypokinetic. Findings: Study Quality * Technically adequate exam. ECG Findings * Atrial fibrillation. Left Ventricle * LVEF 45-50%. * Low normal to mildly reduced LV systolic function. * Severe concentric left ventricular hypertrophy. * Atypical septal motion consistent with a bundle branch block. Active Medications Acetaminophen (Tylenol) 650 mg PO Q48H DANY Stop: 04/15/19 07:46 Last Admin: 10/14/18 08:32 Dose: 650 mg Aspirin (Aspirin) 81 mg PO DAILY DANY Stop: 04/15/19 09:01 Last Admin: 10/15/18 08:20 Dose: 81 mg Atorvastatin Calcium (Lipitor) 40 mg PO HS DANY Stop: 04/15/19 21:01 Last Admin: 10/14/18 20:52 Dose: 40 mg Clopidogrel Bisulfate (Plavix) 75 mg PO DAILY DANY Stop: 04/15/19 09:01 Last Admin: 10/15/18 08:20 Dose: 75 mg Dextrose/Water (Dextrose 50% (Syg)) 25 ml IVP AD PRN PRN Reason: Hypoglycemia Stop: 04/15/19 08:00 Furosemide (Lasix) 40 mg PO BIDDIURETIC DANY Stop: 04/15/19 09:01 Last Admin: 10/15/18 08:20 Dose: 40 mg Gabapentin (Neurontin) 300 mg PO QID [facility] Stop: 04/15/19 09:01 Last Admin: 10/15/18 08:20 Dose: 300 mg Glucagon (Glucagen) 1 mg IM ONCE PRN PRN Reason: Hypoglycemia Stop: 04/15/19 08:00 Glucose (Gluctose) 15 gm PO ONCE PRN PRN Reason: Hypoglycemia Stop: 04/15/19 08:00 Glucose (Gluctose) 30 gm PO ONCE PRN PRN Reason: Hypoglycemia Stop: 04/15/19 08:00 Heparin Sodium (Porcine) (Heparin) 4,000 unit IVP Q6HR PRN PRN Reason: SEE COMMENTS Stop: 04/14/19 21:26 Heparin Sodium (Porcine) (Heparin) 2,000 unit IVP Q6H PRN PRN Reason: SEE COMMENTS Stop: 04/14/19 21:26 Heparin Sodium/Dextrose (Heparin 25,000 Unit/250 Ml D5w) 25,000 unit in 250 mls @ 10.009 mls/hr IVC .Q24H DANY; Protocol Stop: 04/14/19 21:31 Last Admin: 10/15/18 10:31 Dose: 6 unit/kg/hr, 6.7 mls/hr Dextrose (Dextrose 5%) 1,000 mls @ 100 mls/hr IVC .Q10H PRN PRN Reason: HYPOGLYCEMIA Stop: 04/15/19 16:23 Dextrose (Dextrose 5%) 1,000 mls @ 100 mls/hr IVC .Q10H PRN PRN Reason: HYPOGLYCEMIA Stop: 04/15/19 16:50 Insulin Human Lispro (Humalog) 0 units SQ TIDAC [facility]; Protocol Stop: 04/15/19 16:31 Last Admin: 10/15/18 08:23 Dose: Not Given Insulin Human Lispro (Humalog) 0 units SQ HS [facility]; Protocol Stop: 04/15/19 21:01 Last Admin: 10/14/18 22:48 Dose: Not Given Isosorbide Mononitrate (Imdur) 30 mg PO DAILY [facility] Stop: 04/15/19 12:46 Last Admin: 10/15/18 08:20 Dose: 30 mg Metoprolol Succinate (Toprol Xl) 200 mg PO DAILY DANY Stop: 04/15/19 09:01 Last Admin: 10/15/18 08:20 Dose: 200 mg Naloxone HCl (Narcan) 0.4 mg IVP Q2M PRN PRN Reason: SEE COMMENTS Stop: 04/15/19 01:45 Nitroglycerin (Nitroglycerin) 0.4 mg SL Q5MIN PRN PRN Reason: Chest Pain Stop: 04/15/19 01:49 Omeprazole (Prilosec) 40 mg PO DAILY DANY Stop: 04/15/19 09:01 Last Admin: 10/15/18 08:20 Dose: 40 mg Potassium Chloride (Potassium Chloride) 40 meq PO BID DANY Stop: 04/16/19 09:46 Last Admin: 10/15/18 10:27 Dose: 40 meq Sacubitril/Valsartan (Entresto 24 Mg-26 Mg Tablet) 1 tab PO DAILY DANY Stop: 04/15/19 09:01 Last Admin: 10/15/18 08:20 Dose: 1 tab Tramadol HCl (Ultram) 50 mg PO BID PRN PRN Reason: Pain Stop: 04/15/19 07:37 Zolpidem Tartrate (Ambien) 10 mg PO HS PRN; Protocol PRN Reason: Sleep Stop: 04/15/19 07:37 - Imaging and Cardiology Echo: report reviewed - EKG Interpretation EKG results cardiology: other (12 hr tele AVG HR 85, A-Fib.) Consult Discharge Plan - Plan Referrals: Lluvia Palomino, PAPER FOLDER [Primary Care Provider] -
--- NOTE | 2018-10-15 16:30 | Internal Med Progress Note ---
Hospitalist Progress Note - Encounter Date of Encounter: 10/15/18 Time of Encounter: 16:28 - Subjective Interval History: Patient seen and examined at bedside. Patient states that he feels better today. He denies any chest pain or shortness of breath. He denies any anxiety symptoms. He feels back to baseline. - Exam Vitals: Temp Pulse Resp BP Pulse Ox 97.6 F 91 16 129/99 95 10/15/18 11:13 10/15/18 16:13 10/15/18 16:13 10/15/18 16:13 10/15/18 16:13 Exam: Gen.: Alert and oriented 3, no acute distress Heart: Irregularly irregular rhythm, rate controlled, no murmurs, rubs, gallops Lungs: Clear to auscultation bilaterally, no rales, rhonchi, wheezes - Assessment and Plan (1) Chest pain Current Visit: Yes Status: Resolved Assessment and Plan: Resolved. Unclear if his cardiac in nature. Appreciate cardiology recommendations and then started Imdur 30 mg daily. They do not recommend repeat left heart catheterization. (2) Chronic systolic heart failure Current Visit: Yes Status: Acute Assessment and Plan: EF 45-50% which is actually improved. Asymptomatic. No in acute heart failure. Continue Entresto, beta sohail (3) Diabetes mellitus, type 2 Current Visit: No Status: Chronic Assessment and Plan: Blood sugars under good control. Continue sliding scale insulin. (4) Atrial fibrillation Current Visit: Yes Status: Chronic Assessment and Plan: Heart rate under good control. Continue rate controlling medications. Continue Eliquis for anticoagulation. (5) Hypokalemia Current Visit: Yes Status: Acute Assessment and Plan: Persistent for patient, potassium down to 3.1 today. We will supplement with potassium chloride by mouth 40 mEq twice a day. Recheck mag and potassium in the morning. Asymptomatic. (6) DVT prophylaxis Current Visit: No Status: Acute Assessment and Plan: Continue Eliquis 5 mg by mouth twice a day - Time Spent with Patient Total time spent is greater than 50% in coordination of care (as documented) at patient's floor/unit and/or counseling patient: Internal Medicine: Result - Labs CBC & Chem 7: 10/15/18 06:32 10/15/18 06:32 Labs: Short CBC 10/15/18 Range/Units 06:32 WBC 10.8 (4.3-11.1) K/mcL Hgb 14.9 (12.9-16.9) g/dL Hct 45.7 (37.5-50.1) % Plt Count 132 L (140-400) K/mcL Neutrophils # 8.9 (1.6-8.9) K/mcL BMP 10/14/18 10/15/18 19:34 06:32 Sodium 140 Potassium 3.4 L 3.1 L Chloride 102 Carbon Dioxide 27 BUN 14 Creatinine 0.65 L Glucose 132 H Calcium 8.5 L - ABG Interpretation ABG results: PT/INR, D-dimer PT 25.7 Seconds (9.4-12.1) H 10/13/18 19:48 - Impressions Impressions Echocardiogram Limited Views 10/14/18 07:40 Impressions: LVEF 45-50%. Low normal to mildly reduced LV systolic function. Severe concentric left ventricular hypertrophy. Mild global left ventricular systolic dysfunction. Left Ventricular Wall Motion: Rest Echo Findings The apex, apical inferior, mid inferior, basal inferior, apical anterior, mid anterior, basal anterior, apical septal, mid inferior septal, basal inferior septal, apical lateral, mid anterior lateral, basal anterior lateral, mid anterior septal, mid inferior lateral, basal anterior septal and basal inferior lateral khanna were hypokinetic. Findings: Study Quality * Technically adequate exam. ECG Findings * Atrial fibrillation. Left Ventricle * LVEF 45-50%. * Low normal to mildly reduced LV systolic function. * Severe concentric left ventricular hypertrophy. * Atypical septal motion consistent with a bundle branch block. Consult Discharge Plan - Plan Referrals: Lluvia Palomino, HATCHERY SUPERVISOR [Primary Care Provider] - (1) Chest pain Qualifiers: Chest pain type: unspecified Qualified Code(s): R07.9 - Chest pain, unspecified (3) Diabetes mellitus, type 2 Qualifiers: Diabetes mellitus nursing home insulin use: without long term care social worker use Diabetes mellitus complication status: without complication Qualified Code(s): E11.9 - Type 2 diabetes mellitus without complications (4) Atrial fibrillation Qualifiers: Atrial fibrillation type: unspecified Qualified Code(s): I48.91 - Unspecified atrial fibrillation
[2018-10-15] MEDS: traMADol 50 MG TABLET PO PRN (16:41)
[2018-10-15] MEDS: Apixaban 5 MG TABLET PO SCH (21:20)
[2018-10-16] MEDS: traMADol 50 MG TABLET PO PRN (04:30)
[2018-10-16 06:47] LABS: BUN/Creatinine Ratio 22 (6-26); Blood Urea Nitrogen 17 mg/dL (8-23); Calcium 8.7 mg/dL (8.6-10.3); Carbon Dioxide 27 mEq/L (23-29); Chloride 102 mEq/L (98-107); Glucose 164 mg/dL (70-105); Magnesium 1.9 mg/dL (1.6-2.6); Osmolality,Calculated 291 (280-300); Potassium 3.8 mEq/L (3.5-5.1); Sodium 138 mEq/L (136-145); eGFR For Non-African Americans > 60 (> 60)
[2018-10-16 07:39] VITALS: BP 127/96
--- NOTE | 2018-10-16 08:19 | Discharge Summary ---
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 Lambert is a 68 year old male with history of coronary artery disease with recent stent placement, atrial fibrillation presented with chest discomfort. Did have mildly elevated troponins. He was seen by cardiology who did not feel this was a repeat ACS event and added Imdur to his medical regimen. Patient had no episodes of chest discomfort while in the hospital. Patient will be discharged home in stable condition. Discharge discussed with: patient, family - Time Spent with Patient Total time spent providing and/or coordinating discharge services: - Discharge Medications Prescriptions: New Isosorbide MONOnitrate (24 HR) [Imdur] 30 mg PO DAILY #30 tab.er.24h Continue Glucosamine HCl/Chondr Foy A Na [[facility]vs Glucosamine-Chondr Tablet] 1 tab PO DAILY Omeprazole [PriLOSEC] 40 mg PO DAILY Zolpidem [Ambien] 10 mg PO HS PRN PRN Reason: Sleep Acetaminophen [Tylenol Arthritis] 650 mg PO Q48H Gabapentin [Neurontin] 300 mg PO QID Apixaban [Eliquis] 5 mg PO BID #60 tablet Nitroglycerin 0.4 mg SL Q5MIN PRN #30 tab.subl PRN Reason: Chest Pain Aspirin 81 mg PO DAILY #30 tab.chew Atorvastatin [Lipitor] 40 mg PO HS #30 tablet Clopidogrel [Plavix] 75 mg PO DAILY #30 tablet Potassium Chloride 40 meq PO DAILY #60 tab.er.prt Furosemide [Lasix] 40 mg PO BID #120 tablet Tramadol HCl [Ultram] 50 mg PO BID PRN PRN Reason: Pain Sacubitril/Valsartan 24/26 mg [Entresto 24 mg-26 mg Tablet] 1 each PO DAILY Metoprolol Succinate 200 mg PO DAILY Home Medications: Glucosamine HCl/Chondr Foy A Na [[facility]vs Glucosamine-Chondr Tablet] 1 tab PO DAILY 03/27/17 [History] Omeprazole [PriLOSEC] 40 mg PO DAILY 03/27/17 [History] Zolpidem [Ambien] 10 mg PO HS PRN 03/27/17 [History] Acetaminophen [Tylenol Arthritis] 650 mg PO Q48H 09/26/18 [History] Gabapentin [Neurontin] 300 mg PO QID 09/26/18 [History] Apixaban [Eliquis] 5 mg PO BID #60 tablet 09/27/18 [Rx] Aspirin 81 mg PO DAILY #30 tab.chew 10/04/18 [Rx] Atorvastatin [Lipitor] 40 mg PO HS #30 tablet 10/04/18 [Rx] Clopidogrel [Plavix] 75 mg PO DAILY #30 tablet 10/04/18 [Rx] Furosemide [Lasix] 40 mg PO BID #120 tablet 10/04/18 [Rx] Nitroglycerin 0.4 mg SL Q5MIN PRN #30 tab.subl 10/04/18 [Rx] Potassium Chloride 40 meq PO DAILY #60 tab.er.prt 10/04/18 [Rx] Metoprolol Succinate 200 mg PO DAILY 10/14/18 [History] Sacubitril/Valsartan 24/26 mg [Entresto 24 mg-26 mg Tablet] 1 each PO DAILY 10/14/18 [History] Tramadol HCl [Ultram] 50 mg PO BID PRN 10/14/18 [History] Isosorbide MONOnitrate (24 HR) [Imdur] 30 mg PO DAILY #30 tab.er.24h 10/16/18 [Rx] Allergies/Adverse Reactions: Allergy/AdvReac Type Severity Reaction Status Date / Time No Known Allergies Allergy Verified 10/13/18 19:29 Date of admission: 10/13/18 22:59 Primary care physician: Lluvia Palomino CNP Consults: 10/13/18 21:27 Consult to Cardiology [CONS] Stat Comment: Consulting Provider: [facility] [place] Reason for Consult: chest pain, recent stenting with elevated troponin Time Notified: 21:27 Call Completed: Yes 10/14/18 16:22 Consult to Diabetes Education [CONS] Routine Comment: Reason for Consult: new diabetic Discharging clinician: Carlos A Bradshaw Anticipated date of discharge: 10/16/18 - Constitutional Vitals: Temp Pulse Resp BP Pulse Ox 98.6 F 77 15 127/96 93 10/16/18 07:34 10/16/18 07:34 10/16/18 07:34 10/16/18 07:34 10/16/18 07:34 General appearance: Present: A&O X 3 Exam: . - Respiratory Respiratory exam: Present: CTAB. Absent: rales, rhonchi, wheezes - Cardiovascular Cardiovascular exam: Present: irregular rhythm. Absent: gallop, rubs, systolic murmur, tachycardia - Patient Status Disposition: Home, Self-Care Condition: Good Functional capacity at discharge: independent ambulation Overall status at discharge: patient is progressing back to baseline - Discharge Instructions Follow Up With: Lluvia Palomino LATRINE CLEANER [Primary Care Provider] - (1 week) Additional Instructions: Please follow-up with your PCP within one week. Please follow-up with cardiology as scheduled. Please resume your home medications. Please take Imdur daily. Please take nitroglycerin as needed for worsening chest pain. If you have chest pain that does not resolve with 3 doses of nitroglycerin taken 5 minutes apart, please seek medical attention Please return for any new or worsening symptoms. - Diet and Activity Activity: increase activity as tolerated Diet: low salt diet
[2018-10-16] MEDS: Isosorbide MONOnitrate (24 HR) 30 MG TAB.ER.24H PO SCH (08:59)
[2018-10-16] MEDS: Apixaban 5 MG TABLET PO SCH (08:59)
[2018-10-16] MEDS: Aspirin 81 MG TAB.CHEW PO SCH (08:59)
[2018-10-16] MEDS: Acetaminophen 325 MG TABLET PO SCH (08:59)
[2018-10-16] MEDS: SACUBITRIL/VALSARTAN 24/26 MG TABLET PO SCH (08:59)
[2018-10-16] MEDS: Gabapentin 300 MG CAPSULE PO SCH (08:59)
[2018-10-16] MEDS: Furosemide 40 MG TABLET PO SCH (08:59)
[2018-10-16] MEDS: Metoprolol XL (24 HR) Succ 50 MG TAB.ER.24H PO SCH (09:00)
[2018-10-16] MEDS: Insulin LISPRO 300 UNITS/3 ML VIAL SQ SCH (09:00)
== END 2018-10-16 09:41 | disposition home or self-care (01) ==
LOC: 2NENU 19:20 → EMEROOARM 19:20 → SUATTDRO 22:59 → 2NENU 10-14 00:05
PROVIDERS: ADMIT Internal Medicine; ATTEND Internal Medicine

== ENCOUNTER 2018-10-20 14:15 | Inpatient (IN) ==
[2018-10-20] MEDS ORDERED: Isovue-370 500 ML BOTTLE IVP ONE ×2 (14:32→14:46)
--- NOTE | 2018-10-20 14:35 | Emergency Department Note ---
Disposition Clinical Impression: Pulmonary hypertension, Chest pain, Abdominal pain, CAD (coronary artery disease), Adrenal adenoma Disposition: Admitted As Inpatient Condition: Good General Adult HPI - General Stated complaint: Chest Pain / Rectal Bleeding / Abd Pain Time Seen by Provider: 10/20/18 14:22 - Related Data Home Medications Medication Instructions Recorded Confirmed RX: Glucosamine HCl/Chondr Foy A Na 1 tab PO DAILY 03/27/17 10/20/18 [[facility] Glucosamine-Chondr Tablet] RX: Omeprazole [PriLOSEC] 40 mg PO DAILY 03/27/17 10/20/18 RX: Zolpidem [Ambien] 10 mg PO HS PRN 03/27/17 10/20/18 RX: Acetaminophen [Tylenol 650 mg PO Q48H 09/26/18 10/20/18 Arthritis] RX: Gabapentin [Neurontin] 300 mg PO QID 09/26/18 10/20/18 RX: Metoprolol Succinate 200 mg PO DAILY 10/14/18 10/20/18 RX: Sacubitril/Valsartan 24/26 mg 1 each PO DAILY 10/14/18 10/20/18 [Entresto 24 mg-26 mg Tablet] RX: Tramadol HCl [Ultram] 50 mg PO BID PRN 10/14/18 10/20/18 Previous Rx's Medication Instructions Recorded RX: Apixaban [Eliquis] 5 mg PO BID #60 tablet 09/27/18 RX: Aspirin 81 mg PO DAILY #30 tab.chew 10/04/18 RX: Atorvastatin [Lipitor] 40 mg PO HS #30 tablet 10/04/18 RX: Clopidogrel [Plavix] 75 mg PO DAILY #30 tablet 10/04/18 RX: Furosemide [Lasix] 40 mg PO BID #120 tablet 10/04/18 RX: Nitroglycerin 0.4 mg SL Q5MIN PRN #30 tab.subl 10/04/18 RX: Potassium Chloride 40 meq PO DAILY #60 tab.er.prt 10/04/18 RX: Isosorbide MONOnitrate (24 HR) 30 mg PO DAILY #30 tab.er.24h 10/16/18 [Imdur] Allergies Allergy/AdvReac Type Severity Reaction Status Date / Time No Known Allergies Allergy Verified 10/13/18 19:29 Past Medical History - Past Medical History Medical history: Reports: arthritis, atrial fibrillation, CHF, coronary artery disease, GERD, hypertension Surgical history: Reports: appendectomy, herniorrhaphy, orthopedic, other Psychiatric history: Reports: no psych history - Social History Smoking Status: Never smoker Smokeless Tobacco Status: No Alcohol use: Reports: none Drug use: Reports: none Course Vital Signs Temperature 0 F L 10/20/18 14:24 Pulse Rate 122 10/20/18 14:24 Respiratory Rate 32 10/20/18 14:24 Blood Pressure 146/106 10/20/18 14:24 O2 Sat by Pulse Oximetry 96 10/20/18 14:24 Temperature 98.1 F 10/20/18 20:01 Pulse Rate 104 10/20/18 20:01 Respiratory Rate 16 10/20/18 20:01 Blood Pressure 116/83 10/20/18 20:01 O2 Sat by Pulse Oximetry 97 10/20/18 20:01 Oxygen Delivery Oxygen Delivery Nasal Cannula Medical Decision Making - Lab Data Result diagrams: 10/20/18 14:46 10/20/18 14:46 Lab Results 10/20/18 10/20/18 10/20/18 Range/Units 14:46 14:46 14:46 WBC 14.6 H (4.3-11.1) K/mcL RBC 4.96 (4.19-5.50) M/mcL Hgb 14.7 (12.9-16.9) g/dL Hct 45.6 (37.5-50.1) % MCV 91.9 (83.0-100.0) fL MCH 29.6 (28.0-33.3) pg MCHC 32.2 (31.6-35.5) g/dL RDW 13.8 (11.5-14.5) % Plt Count 45 L D (140-400) K/mcL MPV 12.2 (9.4-12.4) fL Immature Gran % 0.5 (0-4) % Seg Neutrophils % 86.1 % Lymphocytes % 5.3 % Monocytes % 7.7 % Eosinophils % 0.1 % Basophils % 0.3 % Neutrophils # 12.6 H (1.6-8.9) K/mcL Lymphocytes # 0.8 (0.6-4.6) K/mcL Monocytes # 1.1 (0.0-1.3) K/mcL Eosinophils # 0.0 (0.0-0.6) K/mcL Basophils # 0.0 (0.0-0.2) K/mcL Platelet Estimate Decreased L (Normal) Immature Plt Fraction 11.5 H (1.1-6.1) % PT 37.9 H (9.4-12.1) Seconds INR 3.4 Sodium 137 (136-145) mEq/L Potassium 4.5 (3.5-5.1) mEq/L Chloride 103 (98-107) mEq/L Carbon Dioxide 25 (23-29) mEq/L BUN 17 (8-23) mg/dL Creatinine 0.76 (0.70-1.30) mg/dL Est GFR ( Amer) > 60 (> 60) Est GFR (Non-Af Amer) > 60 (> 60) BUN/Creatinine Ratio 22 (6-26) Glucose 157 H (70-105) mg/dL Calculated Osmolality 289 (280-300) Lactic Acid (0.5-2.2) mmol/L Calcium 9.2 (8.6-10.3) mg/dL Total Bilirubin 3.6 H (0.3-1.0) mg/dL AST 51 H (13-39) Units/L ALT 47 (7-52) Units/L Alkaline Phosphatase 58 (34-104) Units/L Troponin I 0.06 H* (< 0.04) ng/mL Serum Total Protein 6.4 (6.4-8.9) g/dL Albumin 3.7 (3.5-5.7) g/dL Globulin 2.7 (2.4-3.5) g/dL Albumin/Globulin Ratio 1.4 (1.1-2.2) Lipase < 3 L (11-82) Units/L Urine Color (Yellow) Urine Clarity (Clear) Urine pH (5.0-8.0) pH Units Ur Specific [place] (1.010-1.025) Urine Protein (Neg-Trace) mg/dL Urine Glucose (UA) (Normal) mg/dL Urine Ketones (Negative) mg/dL Urine Blood (Negative) Urine Nitrite (Negative) Urine Bilirubin (Negative) Urine Urobilinogen (Normal) mg/dL Ur Leukocyte Esterase (Negative) Urine Microscopic RBC (0-3) per hpf Urine Microscopic WBC (0-3) per hpf Ur Squamous Epith Cells (None-Few) per lpf Urine Bacteria (None-Few) per hpf Hyaline Casts (None-Few) per lpf Stool Occult Bld Scrn (Negative) Blood Type Antibody Screen 10/20/18 10/20/18 10/20/18 Range/Units 14:49 15:04 15:04 WBC (4.3-11.1) K/mcL RBC (4.19-5.50) M/mcL Hgb (12.9-16.9) g/dL Hct (37.5-50.1) % MCV (83.0-100.0) fL MCH (28.0-33.3) pg MCHC (31.6-35.5) g/dL RDW (11.5-14.5) % Plt Count (140-400) K/mcL MPV (9.4-12.4) fL Immature Gran % (0-4) % Seg Neutrophils % % Lymphocytes % % Monocytes % % Eosinophils % % Basophils % % Neutrophils # (1.6-8.9) K/mcL Lymphocytes # (0.6-4.6) K/mcL Monocytes # (0.0-1.3) K/mcL Eosinophils # (0.0-0.6) K/mcL Basophils # (0.0-0.2) K/mcL Platelet Estimate (Normal) Immature Plt Fraction (1.1-6.1) % PT (9.4-12.1) Seconds INR Sodium (136-145) mEq/L Potassium (3.5-5.1) mEq/L Chloride (98-107) mEq/L Carbon Dioxide (23-29) mEq/L BUN (8-23) mg/dL Creatinine (0.70-1.30) mg/dL Est GFR ( Amer) (> 60) Est GFR (Non-Af Amer) (> 60) BUN/Creatinine Ratio (6-26) Glucose (70-105) mg/dL Calculated Osmolality (280-300) Lactic Acid 1.4 (0.5-2.2) mmol/L Calcium (8.6-10.3) mg/dL Total Bilirubin (0.3-1.0) mg/dL AST (13-39) Units/L ALT (7-52) Units/L Alkaline Phosphatase (34-104) Units/L Troponin I (< 0.04) ng/mL Serum Total Protein (6.4-8.9) g/dL Albumin (3.5-5.7) g/dL Globulin (2.4-3.5) g/dL Albumin/Globulin Ratio (1.1-2.2) Lipase (11-82) Units/L Urine Color (Yellow) Urine Clarity (Clear) Urine pH (5.0-8.0) pH Units Ur Specific [place] (1.010-1.025) Urine Protein (Neg-Trace) mg/dL Urine Glucose (UA) (Normal) mg/dL Urine Ketones (Negative) mg/dL Urine Blood (Negative) Urine Nitrite (Negative) Urine Bilirubin (Negative) Urine Urobilinogen (Normal) mg/dL Ur Leukocyte Esterase (Negative) Urine Microscopic RBC (0-3) per hpf Urine Microscopic WBC (0-3) per hpf Ur Squamous Epith Cells (None-Few) per lpf Urine Bacteria (None-Few) per hpf Hyaline Casts (None-Few) per lpf Stool Occult Bld Scrn Negative (Negative) Blood Type O POSITIVE Antibody Screen NEGATIVE 10/20/18 Range/Units 16:56 WBC (4.3-11.1) K/mcL RBC (4.19-5.50) M/mcL Hgb (12.9-16.9) g/dL Hct (37.5-50.1) % MCV (83.0-100.0) fL MCH (28.0-33.3) pg MCHC (31.6-35.5) g/dL RDW (11.5-14.5) % Plt Count (140-400) K/mcL MPV (9.4-12.4) fL Immature Gran % (0-4) % Seg Neutrophils % % Lymphocytes % % Monocytes % % Eosinophils % % Basophils % % Neutrophils # (1.6-8.9) K/mcL Lymphocytes # (0.6-4.6) K/mcL Monocytes # (0.0-1.3) K/mcL Eosinophils # (0.0-0.6) K/mcL Basophils # (0.0-0.2) K/mcL Platelet Estimate (Normal) Immature Plt Fraction (1.1-6.1) % PT (9.4-12.1) Seconds INR Sodium (136-145) mEq/L Potassium (3.5-5.1) mEq/L Chloride (98-107) mEq/L Carbon Dioxide (23-29) mEq/L BUN (8-23) mg/dL Creatinine (0.70-1.30) mg/dL Est GFR ( Amer) (> 60) Est GFR (Non-Af Amer) (> 60) BUN/Creatinine Ratio (6-26) Glucose (70-105) mg/dL Calculated Osmolality (280-300) Lactic Acid (0.5-2.2) mmol/L Calcium (8.6-10.3) mg/dL Total Bilirubin (0.3-1.0) mg/dL AST (13-39) Units/L ALT (7-52) Units/L Alkaline Phosphatase (34-104) Units/L Troponin I (< 0.04) ng/mL Serum Total Protein (6.4-8.9) g/dL Albumin (3.5-5.7) g/dL Globulin (2.4-3.5) g/dL Albumin/Globulin Ratio (1.1-2.2) Lipase (11-82) Units/L Urine Color Dark Yellow (Yellow) Urine Clarity Clear (Clear) Urine pH 6.0 (5.0-8.0) pH Units Ur Specific [place] > 1.030 H (1.010-1.025) Urine Protein 100 H (Neg-Trace) mg/dL Urine Glucose (UA) Normal (Normal) mg/dL Urine Ketones Negative (Negative) mg/dL Urine Blood Moderate H (Negative) Urine Nitrite Negative (Negative) Urine Bilirubin Negative (Negative) Urine Urobilinogen Normal (Normal) mg/dL Ur Leukocyte Esterase Trace H (Negative) Urine Microscopic RBC 30-50 H (0-3) per hpf Urine Microscopic WBC 15-30 H (0-3) per hpf Ur Squamous Epith Cells Many H (None-Few) per lpf Urine Bacteria None Seen (None-Few) per hpf Hyaline Casts None Seen (None-Few) per lpf Stool Occult Bld Scrn (Negative) Blood Type Antibody Screen Attestation Statement - Attestation Attestation: I examined this patient and my medical decision-making was reviewed with the Resident Physician. I agree with the documented findings, disposition and treatment plan as described except to the extent set forth below. [id number] time provided Patient arrives complaining of upper abdominal pain and bright red blood per rectum. The patient appears mildly uncomfortable on exam. He was recently started on eliquis for new onset A fib. I attest to personally supervising the resident interpretation of ECG
[2018-10-20] MEDS ORDERED: *HR* FentaNYL (PF) 100 MCG/2 ML VIAL IVP ONE (14:42)
--- NOTE | 2018-10-20 14:45 | Emergency Department Note ---
Disposition Clinical Impression: Pulmonary hypertension Chest pain Qualifiers: Chest pain type: unspecified Qualified Code(s): R07.9 - Chest pain, unspecified Abdominal pain Qualifiers: Abdominal location: epigastric Qualified Code(s): R10.13 - Epigastric pain CAD (coronary artery disease) Qualifiers: Coronary Disease-Associated Artery/Lesion type: ramona artery [place] vs. transplanted heart: ramona heart Associated angina: angina presence unspecified Qualified Code(s): I25.10 - Atherosclerotic heart disease of ramona coronary artery without angina pectoris Adrenal adenoma Qualifiers: Laterality: unspecified laterality Qualified Code(s): D35.00 - Benign neoplasm of unspecified adrenal gland Disposition: Admitted As Inpatient Condition: Good Time of Disposition: 22:34 Chest Pain HPI - General Chief Complaint: ED Chest Pain Stated Complaint: Chest Pain / Rectal Bleeding / Abd Pain Time Seen by Provider: 10/20/18 14:22 Source: patient Mode of arrival: ambulatory Limitations: no limitations Vital Signs Reviewed: Yes Nursing Notes Reviewed: Yes - History of Present Illness HPI Narrative: Patient is a 68-year-old male with past medical history of A. fib, currently on Eliquis, Plavix and aspirin daily and metoprolol 200 mg daily. Also has a history of hypertension. GERD history and takes omeprazole 40 mg daily. P resents today due to multiple complaints. Patient states that for the past 3 days, he has had constant chest discomfort, substernal, described as a pressure, constant but waxes and wanes in intensity. He states that last night, the pain became intense and he had to take one nitroglycerin and states that the pain became somewhat better after nitroglycerin. Denies any radiation anywhere else. Currently rates his pain 7 or 8 out of 10. Did not take any nitroglycerin prior to arrival. His second complaint is abdominal discomfort. He states he has pain in the epigastric region, it hurts worse when he presses on his abdomen himself. Denies any vomiting but does admit to a couple episodes of loose stools and blood on the toilet paper when wiping. Denies any large amounts of bright red blood per rectum. He does have a history of hemorrhoids but states that he has not had any hemorrhoids for several years. Denies any other symptoms of fevers, dysuria, hematuria. - Related Data Home Medications Medication Instructions Recorded Confirmed RX: Glucosamine HCl/Chondr Foy A Na 1 tab PO DAILY 03/27/17 10/20/18 [[facility] Glucosamine-Chondr Tablet] RX: Omeprazole [PriLOSEC] 40 mg PO DAILY 03/27/17 10/20/18 RX: Zolpidem [Ambien] 10 mg PO HS PRN 03/27/17 10/20/18 RX: Acetaminophen [Tylenol 650 mg PO Q48H 09/26/18 10/20/18 Arthritis] RX: Gabapentin [Neurontin] 300 mg PO QID 09/26/18 10/20/18 RX: Metoprolol Succinate 200 mg PO DAILY 10/14/18 10/20/18 RX: Sacubitril/Valsartan 24/26 mg 1 each PO DAILY 10/14/18 10/20/18 [Entresto 24 mg-26 mg Tablet] RX: Tramadol HCl [Ultram] 50 mg PO BID PRN 10/14/18 10/20/18 Previous Rx's Medication Instructions Recorded RX: Apixaban [Eliquis] 5 mg PO BID #60 tablet 09/27/18 RX: Aspirin 81 mg PO DAILY #30 tab.chew 10/04/18 RX: Atorvastatin [Lipitor] 40 mg PO HS #30 tablet 10/04/18 RX: Clopidogrel [Plavix] 75 mg PO DAILY #30 tablet 10/04/18 RX: Furosemide [Lasix] 40 mg PO BID #120 tablet 10/04/18 RX: Nitroglycerin 0.4 mg SL Q5MIN PRN #30 tab.subl 10/04/18 RX: Potassium Chloride 40 meq PO DAILY #60 tab.er.prt 10/04/18 RX: Isosorbide MONOnitrate (24 HR) 30 mg PO DAILY #30 tab.er.24h 10/16/18 [Imdur] Allergies Allergy/AdvReac Type Severity Reaction Status Date / Time No Known Allergies Allergy Verified 10/13/18 19:29 All systems ED: reviewed and negative except as stated. Constitutional: Denies: fever Cardiovascular: Reports: chest pain Respiratory: Reports: dyspnea Gastrointestinal: Reports: abdominal pain, diarrhea, hematochezia. Denies: nausea, vomiting, constipation, hematemesis, melena Chest Pain PMH - Past Medical History Medical history: Reports: arthritis, atrial fibrillation, CHF, coronary artery disease, GERD, hypertension Surgical history: Reports: appendectomy, herniorrhaphy, orthopedic, other Psychiatric history: Reports: no psych history - Social History Smoking Status: Never smoker Alcohol use: Reports: none Drug use: Reports: none Physical Exam - General Limitations: no limitations General appearance: alert, other (appears uncomfortable, wincing occasionally) - Head Head exam: atraumatic, normocephalic, normal inspection - Eye Eye exam: Present: normal appearance, PERRL, EOMI - ENT ENT exam: normal exam, normal oropharynx, mucous membranes moist - Neck Neck exam: Present: normal inspection, full ROM, trachea midline - Chest Chest inspection: Present: normal inspection, symmetric chest wall rise - Respiratory Respiratory exam: Present: normal lung sounds bilaterally - Cardiovascular Cardiovascular exam: Present: tachycardia, irregular rhythm, normal heart sounds - Abdominal Exam Abdominal exam: Present: soft, tenderness (epigastric, moderate; mild RUQ). Absent: distention, guarding, rebound, rigidity, Martinez's sign, tenderness at McBurney's Point - Rectal Exam Roving Frame Tender present during exam: Yes (Angie Bnoe) Rectal exam: Present: normal inspection, normal rectal tone. Absent: black stool, bloody stool, hemorrhoids, mass, tenderness - Extremities Exam Extremities exam: Present: normal inspection, full ROM. Absent: tenderness, pedal edema - Neurological Exam Neurological exam: Present: alert, oriented X3 - Psychiatric Psychiatric exam: Present: anxious - Skin Skin exam: Present: warm, dry, intact, normal color Course Course Narrative: Patient mildly tachycardic in the 110s to 120s on presentation, and A. fib. Physical exam shows patient is in mild to moderate pain. He does have some epigastric tenderness upon palpation of the abdomen, negative Martinez's, negative McBurney's. He also is complaining of subjective pain underneath his sternum. We will give the patient fentanyl for pain control. We will hold aspirin at this time as we will be obtaining a CT dissection study for further assessment. Rectal exam showed no active bleeding at this time, no masses, no hemorrhoids, no stool. We will obtain basic blood work, LFTs, lipase, troponin. Patient will likely need to be admitted for trending troponins, less of blood work. 17:21 Labs shows mild elevation in white blood cell count. Elevation in troponin level that is near baseline for chronic elevation. Hemoccult is negative. CT dissection study shows no dissection. However, there is evidence of severe calcification of the LAD and mdoerate of the RCA. There are also incidental adenomas found on the adrenal glands, diverticulosis, nonspecific rectal wall thickening, also evidence of enlarged pulmonary artery suggesting pulmonary hypertension. Patient was unaware of any of these issues. Also states he was never been diagnosed with pulmonary hypertension. Discussed admission for further workup of chest discomfort, further workup of possible pulmonary hypertension and incidental findings on the CT scan. He was agreeable with this plan. Currently states his chest pain is very minimal after fentanyl. We will recommend trending troponins. Accepted for admission by Dr. Ferreira CT Dissection 10/20/18 14:46 IMPRESSION: 1. No acute abnormality of the thoracoabdominal aorta. No aneurysm or dissection. No significant arterial stenosis. 2. Mild cardiomegaly with left ventricular hypertrophy. 3. Severe LAD and moderate RCA coronary artery cacification. 4. Enlarged main pulmonary artery suggests pulmonary hypertension. 5. Bilateral adrenal adenomas, left greater than right. 6. Scattered colonic diverticulosis without acute diverticulitis. 7. Nonspecific mild rectal wall thickening. 8. Enlarged prostate. 9. Minimal ascites with mild anasarca. D/ / 10/20/2018 16:51:07 Geoffrey Kay MD / [facility] Interpreting Provider: Geoffrey Kay MD Vital Signs Temperature 0 F L 10/20/18 14:24 Pulse Rate 122 10/20/18 14:24 Respiratory Rate 32 10/20/18 14:24 Blood Pressure 146/106 10/20/18 14:24 O2 Sat by Pulse Oximetry 96 10/20/18 14:24 Temperature 98.1 F 10/20/18 20:01 Pulse Rate 104 10/20/18 20:01 Respiratory Rate 16 10/20/18 20:01 Blood Pressure 116/83 10/20/18 20:01 O2 Sat by Pulse Oximetry 97 10/20/18 20:01 Oxygen Delivery Oxygen Delivery Nasal Cannula Chest Pain - [facility] Narrative Medical decision making narrative: Patient mildly tachycardic in the 110s to 120s on presentation, and A. fib. Physical exam shows patient is in mild to moderate pain. He does have some epigastric tenderness upon palpation of the abdomen, negative Martinez's, negative McBurney's. He also is complaining of subjective pain underneath his sternum. We will give the patient fentanyl for pain control. We will hold aspirin at this time as we will be obtaining a CT dissection study for further assessment. Rectal exam showed no active bleeding at this time, no masses, no hemorrhoids, no stool. We will obtain basic blood work, LFTs, lipase, troponin. Patient will likely need to be admitted for trending troponins, less of blood work. 17:21 Labs shows mild elevation in white blood cell count. Elevation in troponin level that is near baseline for chronic elevation. Hemoccult is negative. CT dissection study shows no dissection. However, there is evidence of severe calcification of the LAD and mdoerate of the RCA. There are also incidental adenomas found on the adrenal glands, diverticulosis, nonspecific rectal wall thickening, also evidence of enlarged pulmonary artery suggesting pulmonary hypertension. Patient was unaware of any of these issues. Also states he was never been diagnosed with pulmonary hypertension. Discussed ad mission for further workup of chest discomfort, further workup of possible pulmonary hypertension and incidental findings on the CT scan. He was agreeable with this plan. Currently states his chest pain is very minimal after fentanyl. We will recommend trending troponins. Accepted for admission by Dr. Ferreira - Medical Records Medical records reviewed: Yes I reviewed the patient's medical records. - Lab Data Lab results reviewed: Yes I reviewed the patient's lab results. Result diagrams: 10/20/18 14:46 10/20/18 14:46 Lab Results 10/20/18 10/20/18 10/20/18 Range/Units 14:46 14:46 14:46 WBC 14.6 H (4.3-11.1) K/mcL RBC 4.96 (4.19-5.50) M/mcL Hgb 14.7 (12.9-16.9) g/dL Hct 45.6 (37.5-50.1) % MCV 91.9 (83.0-100.0) fL MCH 29.6 (28.0-33.3) pg MCHC 32.2 (31.6-35.5) g/dL RDW 13.8 (11.5-14.5) % Plt Count 45 L D (140-400) K/mcL MPV 12.2 (9.4-12.4) fL Immature Gran % 0.5 (0-4) % Seg Neutrophils % 86.1 % Lymphocytes % 5.3 % Monocytes % 7.7 % Eosinophils % 0.1 % Basophils % 0.3 % Neutrophils # 12.6 H (1.6-8.9) K/mcL Lymphocytes # 0.8 (0.6-4.6) K/mcL Monocytes # 1.1 (0.0-1.3) K/mcL Eosinophils # 0.0 (0.0-0.6) K/mcL Basophils # 0.0 (0.0-0.2) K/mcL Platelet Estimate Decreased L (Normal) Immature Plt Fraction 11.5 H (1.1-6.1) % PT 37.9 H (9.4-12.1) Seconds INR 3.4 Sodium 137 (136-145) mEq/L Potassium 4.5 (3.5-5.1) mEq/L Chloride 103 (98-107) mEq/L Carbon Dioxide 25 (23-29) mEq/L BUN 17 (8-23) mg/dL Creatinine 0.76 (0.70-1.30) mg/dL Est GFR ( Amer) > 60 (> 60) Est GFR (Non-Af Amer) > 60 (> 60) BUN/Creatinine Ratio 22 (6-26) Glucose 157 H (70-105) mg/dL Calculated Osmolality 289 (280-300) Lactic Acid (0.5-2.2) mmol/L Calcium 9.2 (8.6-10.3) mg/dL Total Bilirubin 3.6 H (0.3-1.0) mg/dL AST 51 H (13-39) Units/L ALT 47 (7-52) Units/L Alkaline Phosphatase 58 (34-104) Units/L Troponin I 0.06 H* (< 0.04) ng/mL Serum Total Protein 6.4 (6.4-8.9) g/dL Albumin 3.7 (3.5-5.7) g/dL Globulin 2.7 (2.4-3.5) g/dL Albumin/Globulin Ratio 1.4 (1.1-2.2) Lipase < 3 L (11-82) Units/L Urine Color (Yellow) Urine Clarity (Clear) Urine pH (5.0-8.0) pH Units Ur Specific [place] (1.010-1.025) Urine Protein (Neg-Trace) mg/dL Urine Glucose (UA) (Normal) mg/dL Urine Ketones (Negative) mg/dL Urine Blood (Negative) Urine Nitrite (Negative) Urine Bilirubin (Negative) Urine Urobilinogen (Normal) mg/dL Ur Leukocyte Esterase (Negative) Urine Microscopic RBC (0-3) per hpf Urine Microscopic WBC (0-3) per hpf Ur Squamous Epith Cells (None-Few) per lpf Urine Bacteria (None-Few) per hpf Hyaline Casts (None-Few) per lpf Stool Occult Bld Scrn (Negative) Blood Type Antibody Screen 10/20/18 10/20/18 10/20/18 Range/Units 14:49 15:04 15:04 WBC (4.3-11.1) K/mcL RBC (4.19-5.50) M/mcL Hgb (12.9-16.9) g/dL Hct (37.5-50.1) % MCV (83.0-100.0) fL MCH (28.0-33.3) pg MCHC (31.6-35.5) g/dL RDW (11.5-14.5) % Plt Count (140-400) K/mcL MPV (9.4-12.4) fL Immature Gran % (0-4) % Seg Neutrophils % % Lymphocytes % % Monocytes % % Eosinophils % % Basophils % % Neutrophils # (1.6-8.9) K/mcL Lymphocytes # (0.6-4.6) K/mcL Monocytes # (0.0-1.3) K/mcL Eosinophils # (0.0-0.6) K/mcL Basophils # (0.0-0.2) K/mcL Platelet Estimate (Normal) Immature Plt Fraction (1.1-6.1) % PT (9.4-12.1) Seconds INR Sodium (136-145) mEq/L Potassium (3.5-5.1) mEq/L Chloride (98-107) mEq/L Carbon Dioxide (23-29) mEq/L BUN (8-23) mg/dL Creatinine (0.70-1.30) mg/dL Est GFR ( Amer) (> 60) Est GFR (Non-Af Amer) (> 60) BUN/Creatinine Ratio (6-26) Glucose (70-105) mg/dL Calculated Osmolality (280-300) Lactic Acid 1.4 (0.5-2.2) mmol/L Calcium (8.6-10.3) mg/dL Total Bilirubin (0.3-1.0) mg/dL AST (13-39) Units/L ALT (7-52) Units/L Alkaline Phosphatase (34-104) Units/L Troponin I (< 0.04) ng/mL Serum Total Protein (6.4-8.9) g/dL Albumin (3.5-5.7) g/dL Globulin (2.4-3.5) g/dL Albumin/Globulin Ratio (1.1-2.2) Lipase (11-82) Units/L Urine Color (Yellow) Urine Clarity (Clear) Urine pH (5.0-8.0) pH Units Ur Specific [place] (1.010-1.025) Urine Protein (Neg-Trace) mg/dL Urine Glucose (UA) (Normal) mg/dL Urine Ketones (Negative) mg/dL Urine Blood (Negative) Urine Nitrite (Negative) Urine Bilirubin (Negative) Urine Urobilinogen (Normal) mg/dL Ur Leukocyte Esterase (Negative) Urine Microscopic RBC (0-3) per hpf Urine Microscopic WBC (0-3) per hpf Ur Squamous Epith Cells (None-Few) per lpf Urine Bacteria (None-Few) per hpf Hyaline Casts (None-Few) per lpf Stool Occult Bld Scrn Negative (Negative) Blood Type O POSITIVE Antibody Screen NEGATIVE 10/20/18 Range/Units 16:56 WBC (4.3-11.1) K/mcL RBC (4.19-5.50) M/mcL Hgb (12.9-16.9) g/dL Hct (37.5-50.1) % MCV (83.0-100.0) fL MCH (28.0-33.3) pg MCHC (31.6-35.5) g/dL RDW (11.5-14.5) % Plt Count (140-400) K/mcL MPV (9.4-12.4) fL Immature Gran % (0-4) % Seg Neutrophils % % Lymphocytes % % Monocytes % % Eosinophils % % Basophils % % Neutrophils # (1.6-8.9) K/mcL Lymphocytes # (0.6-4.6) K/mcL Monocytes # (0.0-1.3) K/mcL Eosinophils # (0.0-0.6) K/mcL Basophils # (0.0-0.2) K/mcL Platelet Estimate (Normal) Immature Plt Fraction (1.1-6.1) % PT (9.4-12.1) Seconds INR Sodium (136-145) mEq/L Potassium (3.5-5.1) mEq/L Chloride (98-107) mEq/L Carbon Dioxide (23-29) mEq/L BUN (8-23) mg/dL Creatinine (0.70-1.30) mg/dL Est GFR ( Amer) (> 60) Est GFR (Non-Af Amer) (> 60) BUN/Creatinine Ratio (6-26) Glucose (70-105) mg/dL Calculated Osmolality (280-300) Lactic Acid (0.5-2.2) mmol/L Calcium (8.6-10.3) mg/dL Total Bilirubin (0.3-1.0) mg/dL AST (13-39) Units/L ALT (7-52) Units/L Alkaline Phosphatase (34-104) Units/L Troponin I (< 0.04) ng/mL Serum Total Protein (6.4-8.9) g/dL Albumin (3.5-5.7) g/dL Globulin (2.4-3.5) g/dL Albumin/Globulin Ratio (1.1-2.2) Lipase (11-82) Units/L Urine Color Dark Yellow (Yellow) Urine Clarity Clear (Clear) Urine pH 6.0 (5.0-8.0) pH Units Ur Specific [place] > 1.030 H (1.010-1.025) Urine Protein 100 H (Neg-Trace) mg/dL Urine Glucose (UA) Normal (Normal) mg/dL Urine Ketones Negative (Negative) mg/dL Urine Blood Moderate H (Negative) Urine Nitrite Negative (Negative) Urine Bilirubin Negative (Negative) Urine Urobilinogen Normal (Normal) mg/dL Ur Leukocyte Esterase Trace H (Negative) Urine Microscopic RBC 30-50 H (0-3) per hpf Urine Microscopic WBC 15-30 H (0-3) per hpf Ur Squamous Epith Cells Many H (None-Few) per lpf Urine Bacteria None Seen (None-Few) per hpf Hyaline Casts None Seen (None-Few) per lpf Stool Occult Bld Scrn (Negative) Blood Type Antibody Screen - Radiology Data Radiology results reviewed: Yes I reviewed the patient's radiology results. - EKG Data EKG attestation: Yes I reviewed and interpreted this EKG. EKG results narrative: 10/20/2018 at 14:25. A. fib. Rate 119. QRS 114. QTc 456. Mild left axis deviation. No acute ST elevation or depression. Heart Score - Score History: Moderately Suspicious EKG: Normal Age: Greater than 65 Risk Factors: 1-2 risk factors Troponin: Less than normal limit HEART Score Total: 4
[2018-10-20] MEDS ORDERED: 0.9 % Sodium Chloride 1,000 ML IVC ONE (14:50)
[2018-10-20 15:09] LABS: Basophils % 0.3 %; Eosinophils % 0.1 %; Hematocrit 45.6 % (37.5-50.1); Hemoglobin 14.7 g/dL (12.9-16.9); Immature Granulocytes % 0.5 % (0-4); Immature Platelets 11.5 % (1.1-6.1); Lymphocytes # 0.8 K/mcL (0.6-4.6); Lymphocytes % 5.3 %; Mean Corpuscular HGB Conc 32.2 g/dL (31.6-35.5); Mean Corpuscular Hemoglobin 29.6 pg (28.0-33.3); Mean Corpuscular Volume 91.9 fL (83.0-100.0); Mean Platelet Volume 12.2 fL (9.4-12.4); Monocytes # 1.1 K/mcL (0.0-1.3); Monocytes % 7.7 %; Neutrophils # 12.6 K/mcL (1.6-8.9); Red Blood Count 4.96 M/mcL (4.19-5.50); Red Cell Distribution Width 13.8 % (11.5-14.5); Segmented Neutrophils % 86.1 %
[2018-10-20 15:15] LABS: INR 3.4; Prothrombin Time 37.9 Seconds (9.4-12.1)
[2018-10-20 15:19] LABS: Platelet Count 45 K/mcL (140-400)
[2018-10-20 15:21] LABS: Platelet Estimate Decreased (Normal)
[2018-10-20 15:31] LABS: Alanine Aminotransferase 47 Units/L (7-52); Albumin 3.7 g/dL (3.5-5.7); Albumin/Globulin Ratio 1.4 (1.1-2.2); Alkaline Phosphatase 58 Units/L (34-104); Aspartate Amino Transferase 51 Units/L (13-39); BUN/Creatinine Ratio 22 (6-26); Bilirubin,Total 3.6 mg/dL (0.3-1.0); Blood Urea Nitrogen 17 mg/dL (8-23); Calcium 9.2 mg/dL (8.6-10.3); Carbon Dioxide 25 mEq/L (23-29); Chloride 103 mEq/L (98-107); Globulin 2.7 g/dL (2.4-3.5); Glucose 157 mg/dL (70-105); Lipase < 3 Units/L (11-82); Osmolality,Calculated 289 (280-300); Potassium 4.5 mEq/L (3.5-5.1); Sodium 137 mEq/L (136-145); Total Protein 6.4 g/dL (6.4-8.9); Troponin I 0.06 ng/mL (< 0.04); eGFR For Non-African Americans > 60 (> 60)
[2018-10-20 17:12] LABS: Bilirubin,Urine Negative (Negative); Blood,Urine Moderate (Negative); Clarity,Urine Clear (Clear); Color,Urine Dark Yellow (Yellow); Glucose,Urine (UA) Normal (Normal); Ketones,Urine Negative (Negative); Leukocyte Esterase,Urine Trace (Negative); Nitrite,Urine Negative (Negative); Protein,Urine 100 mg/dL (Neg-Trace); Specific Gravity,Urine > 1.030 (1.010-1.025); Urobilinogen,Urine Normal (Normal)
[2018-10-20 17:15] LABS: Bacteria,Urine None Seen per hpf (None-Few); Hyaline Casts,Urine None Seen per lpf (None-Few); RBC,Urine 30-50 per hpf (0-3); Squamous Epithelial Cell,Urine Many per lpf (None-Few); WBC,Urine 15-30 per hpf (0-3)
[2018-10-20] MEDS ORDERED: Naloxone 0.4 MG/ML INJ IVP PRN (17:26)
[2018-10-20] MEDS ORDERED: ARGATROBAN 250 MG/2.5 ML IVC SCH (17:45)
[2018-10-20] MEDS ORDERED: Nitroglycerin 0.4 MG TAB.SUBL SL PRN (18:00)
--- NOTE | 2018-10-20 18:04 | Internal Med History&Physical ---
Date of Encounter: 10/20/18 Time of Encounter: 17:45 Internal Medicine - H&P: HPI Chief complaint: Epigastric pain Admitted From: Emergency Dept History of present illness: Mr. Lambert is a 68 year old male patient with a history of coronary artery disease status post recent stent, congestive heart failure, cardiomyopathy, atrial fibrillation on anticoagulation with Eliquis who presented to the ER with complaints of acute epigastric pain that has been going on for past couple of days associated with pain going down into his abdomen along with diarrhea. He also noticed some blood in his stools. He denies any fevers or chills. Family has noticed that he is also been increasingly short of breath. He denies any dizziness or lightheadedness. No palpitations. No nausea or vomiting. He did describes a feeling of a knot in his upper abdomen just below his breast bone. His pain has improved in the ER after he received fentanyl. Earlier this month he had stent placed to mid LAD. He had type B dissection with proximal edge of the first place stent. As such a secondary stent was deployed proximally. Patient has been on dual antiplatelet therapy since then. He presented to the ER with chest pain again one week back during which time he was placed on IV heparin. He was eventually discharged home on Imdur. Patient has been on Eliquis for anticoagulation since his initial admission earlier this month. Past Med Surg Social Fam HX - Past Medical History Attestation: Yes The following information was validated with the patient. Source: patient Medical history: arthritis, atrial fibrillation, CHF, coronary artery disease, GERD, hypertension Psychiatric history: no psych history - Past Surgical History Surgical History: appendectomy, herniorrhaphy, orthopedic, other Additional surgical history: foot drop bilaterally, Right hip surgery, left knee replacement. - Social History Smoking Status: Never smoker Smokeless Tobacco Status: No Alcohol use: none Drug use: none - Family History Mother Living Status: Hx Family Cancer: Yes Father Living Status: Hx Family Cardiac Disorders: No Hx Family Respiratory Disorders: No Hx Family Cancer: Yes (pancreatic) Hx Family Endocrine Disorder: Yes (Pts father was diabetic) Internal Medicine - H&P: Meds Glucosamine HCl/Chondr Foy A Na [[facility] Glucosamine-Chondr Tablet] 1 tab PO DAILY 03/27/17 [History] Omeprazole [PriLOSEC] 40 mg PO DAILY 03/27/17 [History] Zolpidem [Ambien] 10 mg PO HS PRN 03/27/17 [History] Acetaminophen [Tylenol Arthritis] 650 mg PO Q48H 09/26/18 [History] Gabapentin [Neurontin] 300 mg PO QID 09/26/18 [History] Apixaban [Eliquis] 5 mg PO BID #60 tablet 09/27/18 [Rx] Aspirin 81 mg PO DAILY #30 tab.chew 10/04/18 [Rx] Atorvastatin [Lipitor] 40 mg PO HS #30 tablet 10/04/18 [Rx] Clopidogrel [Plavix] 75 mg PO DAILY #30 tablet 10/04/18 [Rx] Furosemide [Lasix] 40 mg PO BID #120 tablet 10/04/18 [Rx] Nitroglycerin 0.4 mg SL Q5MIN PRN #30 tab.subl 10/04/18 [Rx] Potassium Chloride 40 meq PO DAILY #60 tab.er.prt 10/04/18 [Rx] Metoprolol Succinate 200 mg PO DAILY 10/14/18 [History] Sacubitril/Valsartan 24/26 mg [Entresto 24 mg-26 mg Tablet] 1 each PO DAILY 10/14/18 [History] Tramadol HCl [Ultram] 50 mg PO BID PRN 10/14/18 [History] Isosorbide MONOnitrate (24 HR) [Imdur] 30 mg PO DAILY #30 tab.er.24h 10/16/18 [Rx] Allergy/AdvReac Type Severity Reaction Status Date / Time No Known Allergies Allergy Verified 10/13/18 19:29 All Systems PM: A 10-system review of systems was performed and is negative for pertinent findings except as documented above in the HPI. - Constitutional Constitutional: lethargy, malaise, no chills, no fever(s), no night sweats - EENT Eyes: no change in vision, no discharge, no pain, no photophobia Ears: no ear discharge, no ear pain, no tinnitus Nose, mouth and throat: no dysphagia, no nasal discharge, no neck pain, no sore throat - Cardiovascular Cardiovascular ROS IM: no chest pain, no diaphoresis, no dyspnea, no lightheadedness, no palpitations, no syncope - Respiratory Respiratory: no cough, no dyspnea, no wheezing, no excessive phlegm production - Gastrointestinal Gastrointestinal: abdominal pain, diarrhea, hematochezia, no hematemesis, no melena, no nausea, no vomiting - Musculoskeletal Musculoskeletal ROS IM: no numbness, no tingling - Integumentary Integumentary IM: no rash, no unusual bruising - Neurological Neurological ROS: no confusion, no convulsions, no focal weakness, no numbness, no tingling, no tremor(s) - Hematologic/Lymphatic Hematologic/Lymphatic: no easy bleeding, no easy bruising - Constitutional Vitals: Temp Pulse Resp BP Pulse Ox 98.6 F 109 36 126/81 98 10/20/18 14:58 10/20/18 16:50 10/20/18 16:50 10/20/18 16:50 10/20/18 16:50 General appearance: Present: cooperative, morbidly obese, pleasant, answers questions appropriately Exam: General: Patient is alert, moderate distress, oriented x 3 Head: atraumatic, normocephalic, ENT: Mucous membranes moist Eye: normal appearance, PERRL, no scleral icterus, no conjunctival injection Neck: normal inspection, trachea midline, full ROM, no carotid bruits Chest: normal inspection, symmetric chest rise Respiratory: Tachypneic, decreased breath sounds at both bases. Shallow respirations Cardiovascular: Irregularly irregular rhythm. s1 and s2 normal No clicks, rubs, gallops, or murmurs. Bilateral pitting pedal edema Abdomen: Abdomen is soft, nontender. Bowel sounds are present Musculoskeletal: Spontaneously moving all extremities Skin: warm, dry, intact. Neuro: Alert oriented x 3 normal cranial nerves, no focal deficits Psych: Patient's affect is normal Internal Med - H&P Results - Labs CBC & Chem 7: 10/20/18 14:46 10/20/18 14:46 Labs: Short CBC 10/20/18 Range/Units 14:46 WBC 14.6 H (4.3-11.1) K/mcL Hgb 14.7 (12.9-16.9) g/dL Hct 45.6 (37.5-50.1) % Plt Count 45 L D (140-400) K/mcL Neutrophils # 12.6 H (1.6-8.9) K/mcL BMP 10/20/18 14:46 Sodium 137 Potassium 4.5 Chloride 103 Carbon Dioxide 25 BUN 17 Creatinine 0.76 Glucose 157 H Calcium 9.2 Cardiac Enzymes 10/20/18 Range/Units 14:46 Troponin I 0.06 H* (< 0.04) ng/mL Liver Function 10/20/18 Range/Units 14:46 Total Bilirubin 3.6 H (0.3-1.0) mg/dL AST 51 H (13-39) Units/L ALT 47 (7-52) Units/L Alkaline Phosphatase 58 (34-104) Units/L Albumin 3.7 (3.5-5.7) g/dL Urine 10/20/18 Range/Units 16:56 Urine Color Dark Yellow (Yellow) Urine Clarity Clear (Clear) Urine pH 6.0 (5.0-8.0) pH Units Ur Specific [place] > 1.030 H (1.010-1.025) Urine Protein 100 H (Neg-Trace) mg/dL Urine Glucose (UA) Normal (Normal) mg/dL - EKG Data -: EKG Interpreted by Myself - EKG Data EKG comments: 10/20/18 18:15 A. fib - Impressions ITS Impressions CT Dissection 10/20/18 14:46 IMPRESSION: 1. No acute abnormality of the thoracoabdominal aorta. No aneurysm or dissection. No significant arterial stenosis. 2. Mild cardiomegaly with left ventricular hypertrophy. 3. Severe LAD and moderate RCA coronary artery cacification. 4. Enlarged main pulmonary artery suggests pulmonary hypertension. 5. Bilateral adrenal adenomas, left greater than right. 6. Scattered colonic diverticulosis without acute diverticulitis. 7. Nonspecific mild rectal wall thickening. 8. Enlarged prostate. 9. Minimal ascites with mild anasarca. D/ / 10/20/2018 16:51:07 Geoffrey Kay MD / [facility] Interpreting Provider: Geoffrey Kay MD - Assessment and Plan (1) Abdominal pain Current Visit: Yes Status: Acute Assessment and plan: Patient describes symptoms of epigastric abdominal pain. He also had diarrhea associated with it. Most likely patient had an episode of gastroenteritis. He may also have underlying gastritis. We will place him on IV PPI. Pain control. Antiemetics as needed. Qualifiers: Abdominal location: epigastric Qualified Code(s): R10.13 - Epigastric pain (2) Heparin induced thrombocytopenia Current Visit: Yes Status: Acute Assessment and plan: Patient's platelets are 45. Concern for heparin-induced thrombocytopenia as patient received heparin about a week back. Also patient is on dual antiplatelet therapy. Discussed with hematology. We will consult hematology for further recommendations but at this time recommended to start after argatroban. Will hold Eliquis. Monitor platelet counts closely. Monitor for any other bleeding. (3) CAD (coronary artery disease) Current Visit: Yes Status: Chronic Assessment and plan: Patient with recent coronary stent. On dual antiplatelet therapy. However patient does have low platelets. Will consult cardiology to evaluate patient to see if he needs any medications to be changed. For now continue aspirin and Plavix. Patient has mild troponin elevation. This is chronic for the patient. Will trend. Qualifiers: Coronary Disease-Associated Artery/Lesion type: [place] artery [place] vs. transplanted heart: [place] heart Associated angina: angina presence unspecified Qualified Code(s): I25.10 - Atherosclerotic heart disease of [place] coronary artery without angina pectoris (4) Congestive heart failure Current Visit: Yes Status: Chronic Assessment and plan: Chronic systolic congestive heart failure. Continue Lasix, and entresto. Monitor input and output Qualifiers: Heart failure type: systolic Heart failure chronicity: chronic Qualified Code(s): I50.22 - Chronic systolic (congestive) heart failure (5) JOSE (obstructive sleep apnea) Current Visit: Yes Status: Acute Assessment and plan: Strongly suspect that the patient has underlying obstructive sleep apnea. CT of the chest also suggest pulmonary hypertension. Outpatient sleep study had been ordered during his last hospitalization. It has not been scheduled yet. While patient is in the hospital, we will order CPAP as needed. (6) Atrial fibrillation Current Visit: Yes Status: Chronic Assessment and plan: Patient remains in A. fib. Continue metoprolol. 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 Qualifiers: Atrial fibrillation type: unspecified Qualified Code(s): I48.91 - Unspecif ied atrial fibrillation (7) Cardiomyopathy Current Visit: Yes Status: Chronic Assessment and plan: Management as above Qualifiers: Cardiomyopathy type: ischemic Qualified Code(s): I25.5 - Ischemic cardiomyopathy (8) Diabetes mellitus, type 2 Current Visit: Yes Status: Chronic Assessment and plan: Will place patient on sliding scale insulin. 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 Hemoglobin levels are stable. Most likely due to mucosal bleeding as patient has low platelets. We will monitor blood counts. Continue PPI. - Time Spent With Patient Total time spent is greater than 50% in coordination of care (as documented) at patient's floor/unit and/or counseling patient:
[2018-10-20] MEDS ORDERED: *HR* Metoprolol 5 MG/5 ML VIAL IVP PRN (18:18)
[2018-10-20] MEDS: Pantoprazole 40 MG VIAL IVP SCH (18:59)
[2018-10-20] MEDS: OXYCODONE Oral CONC 10 MG/0.5 ML ORAL.SYG SL PRN (20:10)
[2018-10-20] MEDS: Gabapentin 300 MG CAPSULE PO SCH (20:11)
[2018-10-20] MEDS: Furosemide 20 MG TABLET PO SCH (20:11)
[2018-10-20] MEDS ORDERED: Argatroban 250 MG in D5% in Water 250 ML IVC SCH (21:00)
[2018-10-21 01:06] LABS: Basophils % 0.2 %; Eosinophils % 0.1 %; Hematocrit 42.3 % (37.5-50.1); Hemoglobin 13.8 g/dL (12.9-16.9); Immature Granulocytes % 0.5 % (0-4); Immature Platelets 10.6 % (1.1-6.1); Lymphocytes # 0.9 K/mcL (0.6-4.6); Lymphocytes % 6.4 %; Mean Corpuscular HGB Conc 32.6 g/dL (31.6-35.5); Mean Corpuscular Hemoglobin 29.9 pg (28.0-33.3); Mean Corpuscular Volume 91.8 fL (83.0-100.0); Mean Platelet Volume 11.2 fL (9.4-12.4); Monocytes # 1.3 K/mcL (0.0-1.3); Monocytes % 9.7 %; Red Blood Count 4.61 M/mcL (4.19-5.50); Red Cell Distribution Width 14.1 % (11.5-14.5); Segmented Neutrophils % 83.1 %
[2018-10-21 01:07] LABS: Neutrophils # 11.1 K/mcL (1.6-8.9); Platelet Count 36 K/mcL (140-400)
[2018-10-21 01:24] LABS: BUN/Creatinine Ratio 26 (6-26); Blood Urea Nitrogen 17 mg/dL (8-23); Calcium 8.3 mg/dL (8.6-10.3); Carbon Dioxide 24 mEq/L (23-29); Chloride 105 mEq/L (98-107); Glucose 178 mg/dL (70-105); Osmolality,Calculated 288 (280-300); Potassium 4.6 mEq/L (3.5-5.1); Sodium 136 mEq/L (136-145); eGFR For Non-African Americans > 60 (> 60)
[2018-10-21 01:27] LABS: Activated Partial Thrombo Time 114.5 Seconds (26.0-36.0)
[2018-10-21 01:32] LABS: Heparin anti-factor XA UFH 1.06 IU/mL (0.30-0.70)
[2018-10-21] MEDS: Pantoprazole 40 MG VIAL IVP SCH ×2 (04:54→17:46)
[2018-10-21 04:57] LABS: Activated Partial Thrombo Time 121.6 Seconds (26.0-36.0)
[2018-10-21 05:01] LABS: Heparin anti-factor XA UFH 0.87 IU/mL (0.30-0.70)
[2018-10-21 05:07] LABS: Basophils % 0.2 %; Eosinophils % 0.1 %; Hematocrit 43.9 % (37.5-50.1); Hemoglobin 14.1 g/dL (12.9-16.9); Immature Granulocytes % 0.6 % (0-4); Lymphocytes # 0.8 K/mcL (0.6-4.6); Lymphocytes % 5.8 %; Mean Corpuscular HGB Conc 32.1 g/dL (31.6-35.5); Mean Corpuscular Hemoglobin 29.3 pg (28.0-33.3); Mean Corpuscular Volume 91.1 fL (83.0-100.0); Mean Platelet Volume 12.8 fL (9.4-12.4); Monocytes # 1.7 K/mcL (0.0-1.3); Monocytes % 11.4 %; Neutrophils # 11.9 K/mcL (1.6-8.9); Platelet Count 37 K/mcL (140-400); Red Blood Count 4.82 M/mcL (4.19-5.50); Segmented Neutrophils % 81.9 %
--- NOTE | 2018-10-21 05:47 | Event Note ---
Date of Encounter: 10/21/18 Time of Encounter: 05:37 Patient aptt continues to rise x2 checks on argatroban despite following protocol. Discussed same with pharmacy, will hold drip for now, repeat aptt q2 hours, and consider restarting once aptt <70. Patient also developed hematuria prior to argatroban drip with only one small clot noted. Patient has previous history of hematuria. Will need urology consult if not improving. H/H and platelets have slightly improved on last draw. Discussed with Dr Charles.
--- NOTE | 2018-10-21 07:53 | Pulmonology Consult Note ---
Date of Encounter: 10/21/18 Time of Encounter: 07:15 Assessment and Plan (1) Pulmonary hypertension Current Visit: Yes Status: Chronic This is most likely chronic in nature and he will be WHO Group2 and Group 3 secondary Pulmonary hypertension. Should not has significant fluid retention and there is evidence of some ascites on his CT abdomen for that reason diuresis as much as possible is recommended for his ischemic cardiomyopathy and he will need a sleep study for his sleep apnea. Patient will need to be evaluated for oxygen need was 6 minute walk before discharging home. (2) JOSE (obstructive sleep apnea) Current Visit: Yes Status: Suspected This is very important to be diagnosed and treated for multiple reasons mainly with his cardiovascular disease and patient is scheduled to have sleep study done will contact sleep lab to expedite this process and he is not a good candidate for home sleep test, however in the past he was not able to sleep and giving Him medication such as Lunesta to have it prior to sleep study is acceptable. (3) Cardiomyopathy Current Visit: Yes Status: Chronic Cardiology is consulted and discussed with primary team and thank you for consultation. I have also discussed with the family at the bedside. I suspect his epigastric pain could be related to his cardiac disease, however is will be deferred to supervisor felling bucking and primary team. please call for any questions. Qualifiers: Qualified Code(s): I25.5 - Ischemic cardiomyopathy History of Present Illness Consult date: 10/21/18 Requesting physician: Tino Akers Reason for consult: pulmonary hypertension Chief complaint: Epigastric pain History of present illness: This is a pleasant 68-year-old male with history of coronary artery disease status post recent stent placement and he also has diagnosis of cardiomyopathy which is ischemic in nature and atrial fibrillation. Apparently those all are new diagnosis for him and previously had collapsed vertebrae and is having chronic back pain and history of hypertension. According to the at the bedside he has snoring and witnessed apnea and he is scheduled to have a sleep study done for obstructive sleep apnea which was attempted in the past but he was not able to sleep. He also has diagnosis of pulmonary hypertension. He denies any dizziness or syncope. This time he presented with severe epigastric pain and CT abdomen did not show anything significant. He does have a history of fluid retention and he was recently discharged from the hospital and he was diuresed with significant amount of volume loss from fluid retention. He does have leg edema and he has also history of diarrhea. CT chest did not showed any evidence of dissection. Patient denies any recent travel and no history of TB. He does have dyspnea on exertion but no significant productive cough or wheezing and he has no history of smoking. Past Med Surg Social Fam HX - Past Medical History Medical history: arthritis, atrial fibrillation, CHF, coronary artery disease, GERD, hypertension Psychiatric history: no psych history - Past Surgical History Surgical History: appendectomy, herniorrhaphy, orthopedic, other Additional surgical history: foot drop bilaterally, Right hip surgery, left knee replacement. - Social History Smoking Status: Never smoker Smokeless Tobacco Status: No Alcohol use: none Drug use: none - Family History Father Living Status: Hx Family Cardiac Disorders: No Hx Family Respiratory Disorders: No Hx Family Cancer: Yes (pancreatic) Hx Family Endocrine Disorder: Yes (Pts father was diabetic) Mother Living Status: Hx Family Cancer: Yes Medications and Allergies RX: Glucosamine HCl/Chondr Foy A Na [[facility] Glucosamine-Chondr Tablet] 1 tab PO DAILY 03/27/17 [History] RX: Omeprazole [PriLOSEC] 40 mg PO DAILY 03/27/17 [History] RX: Zolpidem [Ambien] 10 mg PO HS PRN 03/27/17 [History] RX: Acetaminophen [Tylenol Arthritis] 650 mg PO Q48H 09/26/18 [History] RX: Gabapentin [Neurontin] 300 mg PO QID 09/26/18 [History] RX: Apixaban [Eliquis] 5 mg PO BID #60 tablet 09/27/18 [Rx] RX: Aspirin 81 mg PO DAILY #30 tab.chew 10/04/18 [Rx] RX: Atorvastatin [Lipitor] 40 mg PO HS #30 tablet 10/04/18 [Rx] RX: Clopidogrel [Plavix] 75 mg PO DAILY #30 tablet 10/04/18 [Rx] RX: Furosemide [Lasix] 40 mg PO BID #120 tablet 10/04/18 [Rx] RX: Nitroglycerin 0.4 mg SL Q5MIN PRN #30 tab.subl 10/04/18 [Rx] RX: Potassium Chloride 40 meq PO DAILY #60 tab.er.prt 10/04/18 [Rx] RX: Metoprolol Succinate 200 mg PO DAILY 10/14/18 [History] RX: Sacubitril/Valsartan 24/26 mg [Entresto 24 mg-26 mg Tablet] 1 each PO DAILY 10/14/18 [History] RX: Tramadol HCl [Ultram] 50 mg PO BID PRN 10/14/18 [History] RX: Isosorbide MONOnitrate (24 HR) [Imdur] 30 mg PO DAILY #30 tab.er.24h 10/16/18 [Rx] Allergy/AdvReac Type Severity Reaction Status Date / Time No Known Allergies Allergy Verified 10/13/18 19:29 All Systems: The remainder of the systems were reviewed and are negative Physical Examination Vital Signs: Vital Signs, Last 4 Hours Temp Pulse Resp BP Pulse Ox 10/21/18 04:55 99.7 F H 110 16 137/87 96 General: Patient is in no acute distress. HEENT: Normocephalic atraumatic, pupils are equal round and reactive to light and accommodation, anicteric sclera, nares is patent, mucous membranes moist, no JVD, trachea is midline Cardiovascular: Normal sinus rhythm, S1 and S2 audible, no murmur or rubs Respiratory: Clear to auscultation bilaterally. No acute distress. No wheezing. Patient not using accessory muscles. Abdomen: Soft, mild tender, distended, positive bowel sounds in all 4 quadrants Extremities: Warm, dry, trace lower extremity edema. Normal capillary refill. Neuro: Alert and oriented and follows commands. Grossly no neuro deficits. Skin: Warm to touch : No obvious abnormalities. Psych: Normal Results - Laboratory Findings CBC and BMP: 10/21/18 04:15 10/21/18 00:55 PT/INR, D-dimer PT 37.9 Seconds (9.4-12.1) H 10/20/18 14:46 Abnormal lab findings: Abnormal lab results WBC 14.5 K/mcL (4.3-11.1) H 10/21/18 04:15 Plt Count 37 K/mcL (140-400) L 10/21/18 04:15 MPV 12.8 fL (9.4-12.4) H 10/21/18 04:15 Neutrophils # 11.9 K/mcL (1.6-8.9) H 10/21/18 04:15 Monocytes # 1.7 K/mcL (0.0-1.3) H 10/21/18 04:15 Platelet Estimate Decreased (Normal) L 10/20/18 14:46 Immature Plt Fraction 10.6 % (1.1-6.1) H 10/21/18 00:55 PT 37.9 Seconds (9.4-12.1) H 10/20/18 14:46 APTT 121.6 Seconds (26.0-36.0) H* 10/21/18 04:15 Heparin Anti-Xa, Unfract 0.87 IU/mL (0.30-0.70) H 10/21/18 04:15 Creatinine 0.66 mg/dL (0.70-1.30) L 10/21/18 00:55 Glucose 178 mg/dL (70-105) H 10/21/18 00:55 Calcium 8.3 mg/dL (8.6-10.3) L 10/21/18 00:55 Total Bilirubin 3.6 mg/dL (0.3-1.0) H 10/20/18 14:46 AST 51 Units/L (13-39) H 10/20/18 14:46 Troponin I 0.06 ng/mL (< 0.04) H* 10/21/18 00:55 Lipase < 3 Units/L (11-82) L 10/20/18 14:46 Ur Specific [place] > 1.030 (1.010-1.025) H 10/20/18 16:56 Urine Protein 100 mg/dL (Neg-Trace) H 10/20/18 16:56 Urine Blood Moderate (Negative) H 10/20/18 16:56 Ur Leukocyte Esterase Trace (Negative) H 10/20/18 16:56 Urine Microscopic RBC 30-50 per hpf (0-3) H 10/20/18 16:56 Urine Microscopic WBC 15-30 per hpf (0-3) H 10/20/18 16:56 Ur Squamous Epith Cells Many per lpf (None-Few) H 10/20/18 16:56 - Diagnostic Findings CT scan - chest: report reviewed, image reviewed - Clinical Findings Intake & Output: Intake & Output 10/20/18 10/20/18 10/21/18 15:59 23:59 07:59 Intake Total 1000 / 1000 14 Output Total 200 / 200 Balance 1000 / 1000 -186 / -186 Weight 120.882 kg 112.3 kg Consult Discharge Plan - Plan Referrals: Lluvia Palomino, [employer] [Primary Care Provider] -
[2018-10-21] MEDS ORDERED: Isosorbide MONOnitrate (24 HR) 30 MG TAB.ER.24H PO SCH (09:00)
--- NOTE | 2018-10-21 09:30 | Event Note ---
Date of Encounter: 10/21/18 Time of Encounter: 09:30 - Cardiology Event Note Patient discussed with Dr. Rice. Laboratory Tests 10/14/18 10/15/18 10/20/18 02:19 06:32 14:46 Plt Count 171 132 L 45 L D 10/21/18 10/21/18 00:55 04:15 Plt Count 36 L 37 L [facility] 09/29/18: "CHRISTIN placement in the mLAD. FFR Measurement: 0.76. Type B dissection in the proximal edge of first placed stent hence a second STENT was deployed proximally. 40% mRCA lesion". Remains on ASA and Plavix. Consult if needed.
[2018-10-21] MEDS: Metoprolol XL (24 HR) Succ 50 MG TAB.ER.24H PO SCH (10:06)
[2018-10-21] MEDS: Furosemide 20 MG TABLET PO SCH ×2 (10:07→17:46)
[2018-10-21] MEDS: SACUBITRIL/VALSARTAN 24/26 MG TABLET PO SCH (10:07)
[2018-10-21] MEDS: Gabapentin 300 MG CAPSULE PO SCH ×4 (10:09→20:45)
[2018-10-21] MEDS: Aspirin 81 MG TAB.CHEW PO SCH (10:09)
[2018-10-21] MEDS ORDERED: GI Cocktail 40 ML EACH PO ONE (10:32)
[2018-10-21 11:06] LABS: INR 3.3; Prothrombin Time 37.5 Seconds (9.4-12.1)
[2018-10-21 11:17] LABS: Bilirubin,Direct 1.2 mg/dL (0.0-0.2); Bilirubin,Indirect 2.2 mg/dL (0.0-1.2); Bilirubin,Total 3.4 mg/dL (0.3-1.0)
[2018-10-21] MEDS: OXYCODONE Oral CONC 10 MG/0.5 ML ORAL.SYG SL PRN ×2 (11:22→18:03)
--- NOTE | 2018-10-21 12:49 | Internal Med Progress Note ---
Hospitalist Progress Note - Encounter Date of Encounter: 10/21/18 Time of Encounter: 10:00 - Subjective Interval History: Mr. Lambert is a 68 year old male patient with a history of coronary artery disease status post recent stent on 09/29/2018 in the mLAD, systolic congestive heart failure, Ischemic cardiomyopathy, atrial fibrillation on anticoagulation with Eliquis who presented to the ER with complaints of acute epigastric pain that has been going on for past couple of days associated with pain going down into his abdomen along with diarrhea. He also noticed some blood on toilet paper but normal stool noticed. Earlier this month he had stent placed to mid LAD. He had type B dissection with proximal edge of the first place stent. As such a secondary stent was deployed proximally. Patient has been on dual antiplatelet therapy since then. He presented to the ER with chest pain again one week back during which time he was placed on IV heparin. He was eventually discharged home on Imdur. Patient has been on Eliquis for anticoagulation since his initial admission earlier this month. Now his platelets were at 45 with concerning for heparin induced thrombocytopenia. He was admitted in the hospital and held his anti coag Eliquis and started him on Argtroban gtt. Pt still c/o epigastric abd pain. Denied any CP. - Exam Vitals: Temp Pulse Resp BP Pulse Ox 98.5 F 100 18 131/96 97 10/21/18 11:23 10/21/18 11:23 10/21/18 11:23 10/21/18 11:23 10/21/18 11:23 Exam: Gen: Alert, awake, Oriented to time,place and person Chest: Diminished breath sounds B/L, mild wheezing, No crackles, No rales Heart: S1S2+ Tachycardia, No murmurs Abd: Soft, Mild discomfort in, BS +, No organomegaly Ext: Trace edema, pulses are palpable, No calf tenderness Neuro : Benign findings Skin: No rash. - Assessment and Plan (1) Heparin induced thrombocytopenia Current Visit: Yes Status: Acute Assessment and Plan: Platelets still trending down.. Now @ 34 concerning for HIT especially with his recent heparin therapy a week ago as well as during 09/30 hospitalization too. Heme Onc consulted Melquiades f.u on lab work appreciate Heme Onc recommendations cont holding Eliquis and avoid heparin inj on Argatroban gtt (2) Abdominal pain Current Visit: Yes Status: Acute Assessment and Plan: Epigastric abd pain could be viral gastroenteritis also concerning for ischemic CP. Card on board cont PPI and G.I cocktail Will consult G.I too (3) Atrial fibrillation Current Visit: Yes Status: Chronic Assessment and Plan: Chronic Afib Rate fairly controlled cont home med Metoprolol XL Held Eliquis for anti coag due to HIT Cont Argatroban gtt (4) CAD (coronary artery disease) Current Visit: Yes Status: Chronic Assessment and Plan: Patient with recent coronary stent. On dual antiplatelet therapy. However patient does have low platelets. Concerning for thrombotic events with HIT Consulted cardiology to evaluate patient to see if he needs any medications to be changed. For now continue aspirin and Plavix. Patient has mild troponin elevation mostly due to demand ischemia and chronic too (5) Congestive heart failure Current Visit: Yes Status: Chronic Assessment and Plan: Chronic systolic congestive heart failure. Not in exacerbation No volume overload noticed Continue Lasix, BB, ASA, Statin and entresto. Monitor input and output (6) Cardiomyopathy Current Visit: Yes Status: Chronic Assessment and Plan: Management as above (7) Hematochezia Current Visit: Yes Status: Acute Assessment and Plan: Denied any blood in stool he noticed some bright red blood on toilet paper concerning for hemorrhoidal bleeding will consult GI too for further eval on PPI BID (8) Diabetes mellitus, type 2 Current Visit: Yes Status: Chronic Assessment and Plan: ADA diet on ISS (9) JOSE (obstructive sleep apnea) Current Visit: Yes Status: Suspected Assessment and Plan: Strongly suspect that the patient has underlying obstructive sleep apnea. CT of the chest also suggest pulmonary hypertension. Pulm consulted Recommend out pt sleepy study Also will do ambulating pulse oxy - Time Spent with Patient Total time spent is greater than 50% in coordination of care (as documented) at patient's floor/unit and/or counseling patient: Internal Medicine: Result - Labs CBC & Chem 7: 10/21/18 04:15 10/21/18 00:55 Labs: Short CBC 10/20/18 10/21/18 10/21/18 Range/Units 14:46 00:55 04:15 WBC 14.6 H 13.3 H 14.5 H (4.3-11.1) K/mcL Hgb 14.7 13.8 14.1 (12.9-16.9) g/dL Hct 45.6 42.3 43.9 (37.5-50.1) % Plt Count 45 L D 36 L 37 L (140-400) K/mcL Neutrophils # 12.6 H 11.1 H 11.9 H (1.6-8.9) K/mcL BMP 10/20/18 10/21/18 14:46 00:55 Sodium 137 136 Potassium 4.5 4.6 Chloride 103 105 Carbon Dioxide 25 24 BUN 17 17 Creatinine 0.76 0.66 L Glucose 157 H 178 H Calcium 9.2 8.3 L Cardiac Enzymes 10/20/18 10/20/18 10/21/18 Range/Units 14:46 19:07 00:55 Troponin I 0.06 H* 0.08 H* 0.06 H* (< 0.04) ng/mL Liver Function 10/20/18 10/21/18 Range/Units 14:46 10:49 Total Bilirubin 3.6 H 3.4 H (0.3-1.0) mg/dL Direct Bilirubin 1.2 H (0.0-0.2) mg/dL AST 51 H (13-39) Units/L ALT 47 (7-52) Units/L Alkaline Phosphatase 58 (34-104) Units/L Albumin 3.7 (3.5-5.7) g/dL Urine 10/20/18 Range/Units 16:56 Urine Color Dark Yellow (Yellow) Urine Clarity Clear (Clear) Urine pH 6.0 (5.0-8.0) pH Units Ur Specific [place] > 1.030 H (1.010-1.025) Urine Protein 100 H (Neg-Trace) mg/dL Urine Glucose (UA) Normal (Normal) mg/dL - ABG Interpretation ABG results: PT/INR, D-dimer PT 37.5 Seconds (9.4-12.1) H 10/21/18 10:49 - Impressions Impressions CT Dissection 10/20/18 14:46 IMPRESSION: 1. No acute abnormality of the thoracoabdominal aorta. No aneurysm or dissection. No significant arterial stenosis. 2. Mild cardiomegaly with left ventricular hypertrophy. 3. Severe LAD and moderate RCA coronary artery cacification. 4. Enlarged main pulmonary artery suggests pulmonary hypertension. 5. Bilateral adrenal adenomas, left greater than right. 6. Scattered colonic diverticulosis without acute diverticulitis. 7. Nonspecific mild rectal wall thickening. 8. Enlarged prostate. 9. Minimal ascites with mild anasarca. D/ / 10/20/2018 16:51:07 Geoffrey Kay MD / sha Interpreting Provider: Geoffrey Kay MD Consult Discharge Plan - Plan Referrals: Lluvia Palomino, MANAGER OF INVESTIGATIONS [Primary Care Provider] - (2) Abdominal pain Qualifiers: Abdominal location: epigastric Qualified Code(s): R10.13 - Epigastric pain (3) Atrial fibrillation Qualifiers: Atrial fibrillation type: unspecified Qualified Code(s): I48.91 - Unspecified atrial fibrillation (4) CAD (coronary artery disease) Qualifiers: Coronary Disease-Associated Artery/Lesion type: [place] artery [place] vs. 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
--- NOTE | 2018-10-21 13:25 | Oncology Inp Consult Note ---
<Stephen Morris - Last Filed: 10/21/18 17:21> Date of Encounter: 10/21/18 Time of Encounter: 17:21 - Data of Consult Requesting Physician: Tino Akers MD Primary Care Provider: Lluvia Palomino CNP Medications and Allergies Glucosamine HCl/Chondr Foy A Na [[facility] Glucosamine-Chondr Tablet] 1 tab PO DAILY 03/27/17 [History] Omeprazole [PriLOSEC] 40 mg PO DAILY 03/27/17 [History] Zolpidem [Ambien] 10 mg PO HS PRN 03/27/17 [History] Acetaminophen [Tylenol Arthritis] 650 mg PO Q48H 09/26/18 [History] Gabapentin [Neurontin] 300 mg PO QID 09/26/18 [History] Apixaban [Eliquis] 5 mg PO BID #60 tablet 09/27/18 [Rx] Aspirin 81 mg PO DAILY #30 tab.chew 10/04/18 [Rx] Atorvastatin [Lipitor] 40 mg PO HS #30 tablet 10/04/18 [Rx] Clopidogrel [Plavix] 75 mg PO DAILY #30 tablet 10/04/18 [Rx] Furosemide [Lasix] 40 mg PO BID #120 tablet 10/04/18 [Rx] Nitroglycerin 0.4 mg SL Q5MIN PRN #30 tab.subl 10/04/18 [Rx] Potassium Chloride 40 meq PO DAILY #60 tab.er.prt 10/04/18 [Rx] Metoprolol Succinate 200 mg PO DAILY 10/14/18 [History] Sacubitril/Valsartan 24/26 mg [Entresto 24 mg-26 mg Tablet] 1 each PO DAILY 10/14/18 [History] Tramadol HCl [Ultram] 50 mg PO BID PRN 10/14/18 [History] Isosorbide MONOnitrate (24 HR) [Imdur] 30 mg PO DAILY #30 tab.er.24h 10/16/18 [Rx] Allergy/AdvReac Type Severity Reaction Status Date / Time No Known Allergies Allergy Verified 10/13/18 19:29 Consult Discharge Plan - Plan Referrals: Lluvia Palomino CNP [Primary Care Provider] - - Attending Attestation -Intermediate risk for HIT with 4T score -HIT antibody pending, currently on Argatroban gtt -Haptolgobin, LES, blood smear, reticulocyte count all pending -GI c/s for concern for reflux and cards following, appreciate recommendations. -Will start on Vit B12 1000 mcg PO daily and Folic acid 1 mg PO daily Inpatient Charges Provider: Dr. Katharine Morris Consult - Inpatient: [id number] <Galina Prado Jovany - Last Filed: 10/21/18 17:46> Date of Encounter: 10/21/18 Assessment and Plan (1) Thrombocytopenia Status: Acute Assessment and plan: Intermediate suspicion for HIT according to calculation of 4T's score, high clinical suspicion given timing and history His thrombocytopenia is also complicated by recent CHRISTIN placed on 09/29/2018 Differentials other than HIT may include infectious etiology vs. ITP vs. other LDH and indirect bili noted to be elevated above baseline, jose manuel and haptoglobin pending Does not appear to be consistent with TTP given that patient does not have anemia or renal dysfunction Blood smear pending Fibrinogen elevated ruling out DIC process Hepatitis B and C screen nonreactive Plan: HIT PF4 IgG-continue Argatroban until PF4 resulted Blood smear pending Maintain high index for suspected thrombotic events Haptolgobin, jose manuel, blood smear, reticulocyte count pending Cardiology on board, appreciate recommendations, recommend continuing DAP-on ASA and Plavix Currently no s/s bleeding, continue to monitor, if patient develops active s/s bleeding then the risk for clotting vs. risk for bleeding would need to be carefully weighed therefore would recommend cautious platelet transfusion in the event of active bleeding if plt <50 in the setting of suspected HIT B12/folate supplements started - Data of Consult Requesting Physician: Tino Akers MD Primary Care Provider: Lluvia Palomino CNP - Consult Narrative Reason for consult: Thrombocytopenia History of present illness: Mr. Lambert is a 68 year old male with past medical history significant for arthritis, atrial fibrillation on Eliquis, CAD s/p recent stent placement 09/29/2018, CHF, coronary artery disease, GERD, hypertension, foot drop bilaterally, Right hip surgery, left knee replacement. He presented to ER with acute epigastric pain associated with some diffuse abdominal pain and diarrhea over the past several days. On the evening prior to his presentation he noticed bright red blood with wiping following loose bowel movement. He denies fevers, chills, nausea, vomiting, headache, dizziness, visual changes, SOB, lower/upper extremity pain or edema, rash or skin changes. He did describes a feeling of a knot in his upper abdomen just below his breast bone. On presentation he was noted to have thrombocytopenia with platelet count of 45. Hematology was consulted for concern for HIT vs. other. Concern for HIT with prior heparin exposure, initial exposure with stent placement on 09/29/2018 and then he presented to [facility] and admitted from 10/13/18 through 10/16/2018 for chest pain, he was on a heparin gtt during this time until stopped by cardiology for concern for ACS with recent stent placement. Following concern for potential HIT, Eliquis was stopped last evening and he was transitioned to argatroban. He remains on ASA and plavix, platelet count is 36 this morning. He denies any s/s of bleeding since presentation. He continues to have intermittent epigastric discomfort, primary team and cardiology aware. S/P GI cocktail. Past Med Surg Social Fam HX - Past Medical History Medical history: arthritis, atrial fibrillation, CHF, coronary artery disease, GERD, hypertension Psychiatric history: no psych history - Past Surgical History Surgical History: appendectomy, herniorrhaphy, orthopedic, other Additional surgical history: foot drop bilaterally, Right hip surgery, left knee replacement. - Social History Smoking Status: Never smoker Smokeless Tobacco Status: No Alcohol use: none Drug use: none - Family History Mother Living Status: Hx Family Cancer: Yes Father Living Status: Hx Family Cardiac Disorders: No Hx Family Respiratory Disorders: No Hx Family Cancer: Yes (pancreatic) Hx Family Endocrine Disorder: Yes (Pts father was diabetic) Constitutional: Absent: chills, fatigue, fever(s), headache(s), weakness Eyes: Absent: change in vision Nose, mouth and throat: Absent: dysphagia, odynophagia Cardiovascular: Present: as per HPI. Absent: chest pain Respiratory: Absent: cough, dyspnea Gastrointestinal: Present: as per HPI, abdominal pain, diarrhea Additional comments: epigastric discomfort Genitourinary: Absent: dysuria, hematuria Musculoskeletal: Present: as per HPI. Absent: muscle weakness Additional comments: chronic BLE foot drop Integumentary: Absent: rash Additional comments: chronic skin changes to BLE Neurological: Absent: confusion, dizziness, focal weakness, headache(s) Psychiatric: Present: as per HPI Hematologic/Lymphatic: Present: as per HPI. Absent: easy bleeding, easy bruising Oncology - Exam - Constitutional General appearance: cooperative, no acute distress, no febrile Exam: appears uncomfortable secondary to epigastric discomfort - Head Head exam: Present: atraumatic - ENT ENT exam: Present: mucous membranes moist, normal oropharynx - Respiratory Respiratory exam: Present: CTAB. Absent: respiratory distress - Cardiovascular Cardiovascular exam: Present: irregular rhythm - GI/Abdominal GI/Abdominal exam: Present: normal bowel sounds, soft, tenderness. Absent: rebound Additional comments: diffuse tenderness - Extremities Exam Extremities exam: Absent: calf tenderness Additional comments: BLE foot drop-chronic - Neurological Exam Neurological exam: Present: alert, oriented X3, no focal deficits, strengths equal and symetr throughout - Psychiatric Psychiatric exam: Present: normal affect, normal mood - Skin Skin exam: Present: dry, intact, normal color, warm Additional comments: chronic skin changes noted to BLE Inpatient Charges Provider: Dr. Katharine Morris
[2018-10-21 13:33] LABS: Hepatitis B Surface Antigen Nonreactive (Nonreactive)
--- NOTE | 2018-10-21 13:36 | Cardiology Consult Note ---
Date of Encounter: 10/21/18 Time of Encounter: 13:30 Assessment and Plan (1) Abdominal pain Current Visit: Yes Status: Acute Per Cardiology: Presents with recurrent epigastric and abdominal pain similar to what he experienced during hospital stay last week. Again, symptoms are dissimilar to what he experienced August 2018 when he received stent. Has reported history of GERD. Consider GI evaluation. Qualifiers: Abdominal location: epigastric Qualified Code(s): R10.13 - Epigastric pain (2) Elevated troponin Current Visit: No Status: Acute Per Cardiology: Peak troponin August 2018 0.08, last week 0.08, and now 0.08. All troponins flat and adynamic. Do not suspect non-STEMI. No cardiac rehabilitation consult warranted. Repeat limited echo from last week showed EF improved to 45-50% from 40-45%. We discussed potential further ischemic evaluation in terms of stress testing or repeat left heart catheterization, however patient with concerns of thrombocytopenia currently. Recommend continue to monitor and consider outpatient evaluation. (3) CAD (coronary artery disease) Current Visit: Yes Status: Chronic Per Cardiology: [facility] 08/2018: Impressions: There is severe one vessel coronary artery disease. Patient had successful PTCA/Drug-Eluting Stent placement in the mid LAD. FFR Measurement: 0.76 Type B dissection in the proximal edge of first placed stent hence a second STENT was deployed proximally Lesion Findings/Interventions * Left Main Coronary Artery The LMCA is angiographically free of disease. * Left Anterior Descending There is a 36 mm long, 70% stenosis in the Mid LAD. The lesion has a KRISTEL flow of 3. An intervention was performed on the Mid LAD with a final stenosis of 0%. There were no lesion complications. The final KRISTEL flow was 3. * Circumflex The Circumflex is angiographically free of disease. The 1st Marginal is angiographically free of disease. * Right Coronary Artery There is a 40% stenosis in the Mid RCA. On aspirin, Plavix, statin, beta sohail, long-acting nitrate. Qualifiers: Coronary Disease-Associated Artery/Lesion type: [place] artery [place] vs. transplanted heart: [place] heart Associated angina: angina presence unspecified Qualified Code(s): I25.10 - Atherosclerotic heart disease of [place] coronary artery without angina pectoris (4) Thrombocytopenia Current Visit: Yes Status: Acute Per Cardiology: Platelets on low side of normal during initial hospital stay and now down to 37. Hematology consult pending. H&H stable. No signs of spontaneous bleeding. Patient on aspirin and Plavix-- had recent stenting placed 09/29/2018. We will await pathology regulations. I feel he would remain on aspirin and Plavix. Will discuss with Dr. Fox. On Argratobran. (5) Cardiomyopathy Current Visit: Yes Status: Chronic Per Cardiology: EF improved from 40-45% to 45-50% from echo on last hospital stay. Euvolemic on exam. Qualifiers: Cardiomyopathy type: ischemic Qualified Code(s): I25.5 - Ischemic cardiomyopathy (6) Atrial fibrillation Current Visit: Yes Status: Chronic Per Cardiology: Apparent new onset during hospital stay August 2018. Average heart rate the past 12 hours on telemetry 109. Currently A. fib in the 100s to 110s. On Toprol XL 200 mg by mouth daily. With EF improved from 45-50% will consider addition of Cardizem. Will discuss with Dr. Fox. Qualifiers: Atrial fibrillation type: unspecified Qualified Code(s): I48.91 - Uns pecified atrial fibrillation Discussion w patient/family: The assessment and plan as outlined above was discussed with the patient and/or family members who expressed understanding and agreement. All questions were answered. Thank you for involving us in the care of your patient. Please call with any questions. History of Present Illness Consult date: 10/21/18 Requesting physician: Tino Akers Consult reason: CP, thrombocytopenia Chief complaint: Abdominal Pain History of present illness: Mr. Lambert is a 68 year old male with relevant past medical history of recent atrial fibrillation with anticoagulation of Eliquis, CAD with stenting August 2018, ischemic cardio myopathy, HTN, GERD. Cardiology consult for chest pain and concerns of thrombocytopenia. Patient seen with at bedside. He reports he continued to experience mid epigastric and lower abdominal discomfort at rest. He reports his symptoms have continued on since hospital stay about one week ago. He reports symptoms are not similar to what he experienced at time of first hospitalization at end of August 2018 when extending of chest pressure and heaviness. He reports he attempted some nitroglycerin pills with some mild relief. He reports currently chest pain-free. Currently epigastric burning abdominal pain resolved-- did have some abdominal tenderness to palpation. He reports on PPI with history of EGD in the past. He denies any current bleeding or blood loss-- he reports one episode of diarrhea about one week ago with bright red blood on toilet paper and with no recurrence. He denies any palpitations, dizziness, syncope, falls. Past Med Surg Social Fam HX - Past Medical History Attestation: Yes The following information was validated with the patient. Source: patient, old records reviewed, obtained from family Medical history: arthritis, atrial fibrillation, CHF, coronary artery disease, GERD, hypertension Psychiatric history: no psych history - Past Surgical History Surgical History: appendectomy, herniorrhaphy, orthopedic, other Additional surgical history: foot drop bilaterally, Right hip surgery, left knee replacement. - Social History Smoking Status: Never smoker Smokeless Tobacco Status: No Alcohol use: none Drug use: none - Family History Mother Living Status: Hx Family Cancer: Yes Father Living Status: Hx Family Cardiac Disorders: No Hx Family Respiratory Disorders: No Hx Family Cancer: Yes (pancreatic) Hx Family Endocrine Disorder: Yes (Pts father was diabetic) Medications and Allergies Glucosamine HCl/Chondr Foy A Na [Cvs Glucosamine-Chondr Tablet] 1 tab PO DAILY 03/27/17 [History] Omeprazole [PriLOSEC] 40 mg PO DAILY 03/27/17 [History] Zolpidem [Ambien] 10 mg PO HS PRN 03/27/17 [History] Acetaminophen [Tylenol Arthritis] 650 mg PO Q48H 09/26/18 [History] Gabapentin [Neurontin] 300 mg PO QID 09/26/18 [History] Apixaban [Eliquis] 5 mg PO BID #60 tablet 09/27/18 [Rx] Aspirin 81 mg PO DAILY #30 tab.chew 10/04/18 [Rx] Atorvastatin [Lipitor] 40 mg PO HS #30 tablet 10/04/18 [Rx] Clopidogrel [Plavix] 75 mg PO DAILY #30 tablet 10/04/18 [Rx] Furosemide [Lasix] 40 mg PO BID #120 tablet 10/04/18 [Rx] Nitroglycerin 0.4 mg SL Q5MIN PRN #30 tab.subl 10/04/18 [Rx] Potassium Chloride 40 meq PO DAILY #60 tab.er.prt 10/04/18 [Rx] Metoprolol Succinate 200 mg PO DAILY 10/14/18 [History] Sacubitril/Valsartan 24/26 mg [Entresto 24 mg-26 mg Tablet] 1 each PO DAILY 10/14/18 [History] Tramadol HCl [Ultram] 50 mg PO BID PRN 10/14/18 [History] Isosorbide MONOnitrate (24 HR) [Imdur] 30 mg PO DAILY #30 tab.er.24h 10/16/18 [Rx] Allergy/AdvReac Type Severity Reaction Status Date / Time No Known Allergies Allergy Verified 10/13/18 19:29 All Systems Review: The remainder of the systems were reviewed and are negative - Constitutional Constitutional: fatigue - Cardiovascular Cardiovascular: as per HPI, chest pain at rest - Gastrointestinal Gastrointestinal: abdominal pain Physical Examination Vital Signs, Last 4 Hours Temp Pulse Resp BP Pulse Ox 10/21/18 11:23 98.5 F 100 18 131/96 97 General: Conversant, No Apparent Distress HEENT: Atraumatic, Normocephaly, Mucus Membranes Moist Neck: No JVD, Normal carotid pulses Cardiac: No Murmur, Other (Irregularly irregular) Lungs: Normal Breath Sounds, No Wheeze, Rales, Rhonchi Neuro: Alert and responsive, No focal deficits noted Abdomen: Soft, Non-Tender, Other (Slight right upper and lower quadrant abdominal tenderness to palpation) Skin: No rashes noted on visualized skin Musculoskeletal: No Chest Wall Tenderness Extremities: No Clubbing, No Cyanosis, No Edema, Normal Pulses Results 10/21/18 04:15 10/21/18 00:55 Lab Results Laboratory Tests 09/26/18 09/27/18 10/13/18 22:02 05:24 19:48 WBC Hgb Hct Plt Count 183 INR Fibrinogen Creatinine Est GFR (Non-Af Amer) AST ALT Troponin I 0.08 H* 0.08 H* Stool Occult Bld Scrn 10/14/18 10/15/18 10/20/18 02:19 06:32 14:46 WBC 10.8 14.6 H Hgb Hct Plt Count 171 132 L 45 L D INR Fibrinogen Creatinine Est GFR (Non-Af Amer) AST ALT Troponin I Stool Occult Bld Scrn 10/20/18 10/20/18 10/20/18 14:46 14:49 19:07 WBC Hgb Hct Plt Count INR Fibrinogen Creatinine Est GFR (Non-Af Amer) AST 51 H ALT 47 Troponin I 0.06 H* 0.08 H* Stool Occult Bld Scrn Negative 10/21/18 10/21/18 10/21/18 00:55 00:55 00:55 WBC Hgb 13.8 Hct 42.3 Plt Count 36 L INR Fibrinogen Creatinine 0.66 L Est GFR (Non-Af Amer) > 60 AST ALT Troponin I 0.06 H* Stool Occult Bld Scrn 10/21/18 10:49 WBC Hgb Hct Plt Count INR 3.3 Fibrinogen 572 H Creatinine Est GFR (Non-Af Amer) AST ALT Troponin I Stool Occult Bld Scrn ITS Impressions CT Dissection 10/20/18 14:46 IMPRESSION: 1. No acute abnormality of the thoracoabdominal aorta. No aneurysm or dissection. No significant arterial stenosis. 2. Mild cardiomegaly with left ventricular hypertrophy. 3. Severe LAD and moderate RCA coronary artery cacification. 4. Enlarged main pulmonary artery suggests pulmonary hypertension. 5. Bilateral adrenal adenomas, left greater than right. 6. Scattered colonic diverticulosis without acute diverticulitis. 7. Nonspecific mild rectal wall thickening. 8. Enlarged prostate. 9. Minimal ascites with mild anasarca. D/ / 10/20/2018 16:51:07 Geoffrey Kay MD / [facility] Interpreting Provider: Geoffrey Kay MD Active Medications Aspirin (Aspirin) 81 mg PO DAILY DANY Stop: 04/22/19 09:01 Last Admin: 10/21/18 10:09 Dose: 81 mg Atorvastatin Calcium (Lipitor) 40 mg PO HS DANY Stop: 04/21/19 21:01 Last Admin: 10/20/18 20:11 Dose: 40 mg Clopidogrel Bisulfate (Plavix) 75 mg PO DAILY DANY Stop: 04/22/19 09:01 Last Admin: 10/21/18 10:09 Dose: 75 mg Furosemide (Lasix) 40 mg PO BIDDIURETIC DANY Stop: 04/21/19 21:01 Last Admin: 10/21/18 10:07 Dose: 40 mg Gabapentin (Neurontin) 300 mg PO QID [facility] Stop: 04/21/19 21:01 Last Admin: 10/21/18 10:09 Dose: 300 mg Argatroban 250 mg/ Dextrose 252.5 mls @ 3.5 mls/hr IVC CONT DANY; Protocol Stop: 04/21/19 21:01 Last Titration: 10/21/18 05:03 Dose: 0 mcg/kg/min, 0 mls/hr Isosorbide Mononitrate (Imdur) 30 mg PO DAILY [facility] Stop: 04/22/19 09:01 Last Admin: 10/21/18 10:08 Dose: 30 mg Metoprolol Succinate (Toprol Xl) 200 mg PO DAILY [facility] Stop: 04/22/19 09:01 Last Admin: 10/21/18 10:06 Dose: 200 mg Metoprolol Tartrate (Lopressor) 5 mg IVP Q6HR PRN PRN Reason: tachyarrythmia Stop: 04/21/19 18:19 Naloxone HCl (Narcan) 0.4 mg IVP Q2M PRN PRN Reason: SEE COMMENTS Stop: 04/21/19 17:27 Nitroglycerin (Nitroglycerin) 0.4 mg SL Q5MIN PRN PRN Reason: Chest Pain Stop: 04/21/19 18:01 Oxycodone HCl (Oxycodone Oral Conc) 5 mg SL Q6HR PRN; Protocol PRN Reason: Moderate Pain Stop: 04/21/19 18:20 Last Admin: 10/21/18 11:22 Dose: 5 mg Pantoprazole Sodium (Protonix) 40 mg IVP Q12HR [facility] Stop: 04/21/19 18:01 Last Admin: 10/21/18 04:54 Dose: 40 mg Potassium Chloride (Potassium Chloride) 40 meq PO DAILY [facility] Stop: 04/22/19 09:01 Last Admin: 10/21/18 10:08 Dose: 40 meq Sacubitril/Valsartan (Entresto 24 Mg-26 Mg Tablet) 1 tab PO DAILY [facility] Stop: 04/22/19 09:01 Last Admin: 10/21/18 10:07 Dose: 1 tab - Imaging and Cardiology Echo: report reviewed Cardiac cath: report reviewed - EKG Interpretation EKG results cardiology: personally reviewed (Gaby silva in the 110s) Consult Discharge Plan - Plan Referrals: Lluvia Palomino, TRAPEZE PERFORMER [Primary Care Provider] -
[2018-10-21 13:37] LABS: Folate 6.7 ng/mL (3.0-16.0); Vitamin B12 339 pg/mL (250-1100)
[2018-10-21 14:01] LABS: Hepatitis C Virus Antibody Nonreactive (Nonreactive)
--- NOTE | 2018-10-21 15:05 | Event Note ---
Date of Encounter: 10/21/18 Time of Encounter: 15:00 - Cardiology Event Note Discussed with Dr. Fox, we will add calcium channel sohail for rate control-- starting Cardizem CD 120 mg by mouth daily. We will titrate long-acting nitrate. Recommend patient is to continue with aspirin and Plavix. Patient remains off Eliquis-- patient and aware of increased stroke risk. Discussed with primary service. GI consult pending.
[2018-10-21 15:12] LABS: Complement C3 112 mg/dL (87-200)
--- NOTE | 2018-10-21 16:23 | Electrocardiograph Report ---
[address] [place], [place] [address] Test Date: 2018-10-20 Pat Name: Andre Lambert Department: [id number] Room: 3B16 Gender: M Mailroom Clerk: : 1950 Requested By: Murray Temple Order Number: [id number] Reading MD: Jennifer Sauer Measurements Intervals [place] Rate: 119 P: SD: QRS: 175 QRSD: 114 T: 30 QT: 334 QTc: 456 Interpretive Statements Atrial fibrillation Nonspecific intraventricular conduction delay Anterolateral infarct, old Low voltage limb leads Electronically Signed On 10-21-2018 16:22:04 EDT by Jennifer Sauer
[2018-10-21] MEDS: Diltiazem CD (24hr) 120 MG CAPSULE PO SCH (17:46)
[2018-10-21 21:54] LABS: Hepatitis B Core IgM Nonreactive (Nonreactive)
[2018-10-21 21:56] LABS: Hepatitis A Antibody IgM Nonreactive (Nonreactive)
[2018-10-22 01:20] LABS: Immature Reticulocyte % 19.6 % (11.0-38.0); Mean Corpuscular HGB Conc 32.3 g/dL (31.6-35.5); Monocytes % 10.5 %; Retculocyte # 0.07 M/mcL (0.05-0.10); Reticulocyte % 1.6 % (1.6-2.8)
[2018-10-22 01:22] LABS: Basophils % 0.2 %; Eosinophils # 0.1 K/mcL (0.0-0.6); Eosinophils % 0.5 %; Hematocrit 42.1 % (37.5-50.1); Hemoglobin 13.6 g/dL (12.9-16.9); Immature Granulocytes % 0.4 % (0-4); Immature Platelets 10.5 % (1.1-6.1); Lymphocytes # 1.1 K/mcL (0.6-4.6); Lymphocytes % 9.6 %; Mean Corpuscular Hemoglobin 29.6 pg (28.0-33.3); Mean Corpuscular Volume 91.7 fL (83.0-100.0); Mean Platelet Volume 12.6 fL (9.4-12.4); Monocytes # 1.2 K/mcL (0.0-1.3); Neutrophils # 8.7 K/mcL (1.6-8.9); Red Blood Count 4.59 M/mcL (4.19-5.50); Red Cell Distribution Width 14.2 % (11.5-14.5); Segmented Neutrophils % 78.8 %
[2018-10-22 01:24] LABS: Platelet Count 37 K/mcL (140-400)
[2018-10-22 01:40] LABS: Alanine Aminotransferase 48 Units/L (7-52); Albumin 2.9 g/dL (3.5-5.7); Albumin/Globulin Ratio 1.2 (1.1-2.2); Alkaline Phosphatase 59 Units/L (34-104); Aspartate Amino Transferase 40 Units/L (13-39); BUN/Creatinine Ratio 27 (6-26); Bilirubin,Total 2.2 mg/dL (0.3-1.0); Blood Urea Nitrogen 19 mg/dL (8-23); Calcium 8.2 mg/dL (8.6-10.3); Carbon Dioxide 25 mEq/L (23-29); Chloride 104 mEq/L (98-107); Globulin 2.5 g/dL (2.4-3.5); Glucose 164 mg/dL (70-105); Magnesium 2.1 mg/dL (1.6-2.6); Osmolality,Calculated 286 (280-300); Potassium 4.7 mEq/L (3.5-5.1); Sodium 135 mEq/L (136-145); Total Protein 5.4 g/dL (6.4-8.9); eGFR For Non-African Americans > 60 (> 60)
[2018-10-22] MEDS: Pantoprazole 40 MG VIAL IVP SCH ×2 (05:57→17:34)
[2018-10-22] MEDS: OXYCODONE Oral CONC 10 MG/0.5 ML ORAL.SYG SL PRN ×3 (06:49→23:39)
--- NOTE | 2018-10-22 07:35 | Pulmonology Progress Note ---
Date of Encounter: 10/22/18 Time of Encounter: 07:15 Assessment and Plan (1) Pulmonary hypertension Current Visit: Yes Status: Chronic As indicated before regarding management for this. Patient is using oxygen and keeping his oxygen saturation around 92% 1. Acceptable and wean off FiO2. Same recommendation regarding 6 minute walk before discharge home. If for some reason patient on have left heart catheter, having retired catheter would be valuable. (2) JOSE (obstructive sleep apnea) Current Visit: Yes Status: Suspected Patient tolerated CPAP last night and when his discharge home he will be scheduled to have a sleep study as outpatient. Please call for any questions (3) Cardiomyopathy Current Visit: Yes Status: Chronic Qualifiers: Cardiomyopathy type: ischemic Qualified Code(s): I25.5 - Ischemic cardiomyopathy Subjective Principal diagnosis: Epigastric pain Interval history: Patient does not feel any significant improvement and still have abdominal discomfort. However he tolerated CPAP well and denies any significant breathing problems. Objective PUL Vital signs: Last Vital Signs Temp 98.5 F 10/22/18 07:13 Pulse 95 10/22/18 07:13 Resp 16 10/22/18 07:13 BP 123/78 10/22/18 07:13 Pulse Ox 97 10/22/18 07:13 General appearance: appears uncomfortable ENT: oropharynx dry Mallampati (class): 3 Neck: supple Effort: normal Auscultation: bilateral: diminished breath sounds Percussion: bilateral: not dull Cardiovascular: irregular rhythm Gastrointestinal: normoactive bowel sounds, soft, tender (Epigastric area) Extremities: no cyanosis, edema normal mental status, non-focal exam mood appropriate Results - Laboratory Findings CBC and BMP: 10/22/18 01:05 10/22/18 01:05 PT/INR, D-dimer PT 37.5 Seconds (9.4-12.1) H 10/21/18 10:49 Abnormal lab findings: Abnormal lab results Plt Count 37 K/mcL (140-400) L 10/22/18 01:05 MPV 12.6 fL (9.4-12.4) H 10/22/18 01:05 Platelet Estimate Decreased (Normal) L 10/20/18 14:46 Immature Plt Fraction 10.5 % (1.1-6.1) H 10/22/18 01:05 Retic Hgb Equivalent 27.4 pg (28.61-36.33) L 10/22/18 01:05 PT 37.5 Seconds (9.4-12.1) H 10/21/18 10:49 APTT 72.7 Seconds (26.0-36.0) H 10/22/18 01:05 Fibrinogen 572 mg/dL (169-393) H 10/21/18 10:49 Heparin Anti-Xa, Unfract 0.87 IU/mL (0.30-0.70) H 10/21/18 04:15 Sodium 135 mEq/L (136-145) L 10/22/18 01:05 BUN/Creatinine Ratio 27 (6-26) H 10/22/18 01:05 Glucose 164 mg/dL (70-105) H 10/22/18 01:05 Calcium 8.2 mg/dL (8.6-10.3) L 10/22/18 01:05 Total Bilirubin 2.2 mg/dL (0.3-1.0) H 10/22/18 01:05 Direct Bilirubin 1.2 mg/dL (0.0-0.2) H 10/21/18 10:49 Indirect Bilirubin 2.2 mg/dL (0.0-1.2) H 10/21/18 10:49 AST 40 Units/L (13-39) H 10/22/18 01:05 Lactate Dehydrogenase 311 Units/L (140-271) H 10/21/18 10:49 Troponin I 0.06 ng/mL (< 0.04) H* 10/21/18 00:55 Serum Total Protein 5.4 g/dL (6.4-8.9) L 10/22/18 01:05 Albumin 2.9 g/dL (3.5-5.7) L 10/22/18 01:05 Lipase < 3 Units/L (11-82) L 10/20/18 14:46 Ur Specific [place] > 1.030 (1.010-1.025) H 10/20/18 16:56 Urine Protein 100 mg/dL (Neg-Trace) H 10/20/18 16:56 Urine Blood Moderate (Negative) H 10/20/18 16:56 Ur Leukocyte Esterase Trace (Negative) H 10/20/18 16:56 Urine Microscopic RBC 30-50 per hpf (0-3) H 10/20/18 16:56 Urine Microscopic WBC 15-30 per hpf (0-3) H 10/20/18 16:56 Ur Squamous Epith Cells Many per lpf (None-Few) H 10/20/18 16:56 Complement C4 9 mg/dL (19-52) L 10/21/18 13:54 - Clinical Findings Intake & Output: Intake & Output 10/21/18 10/21/18 10/22/18 15:59 23:59 07:59 Output Total 200 / 200 350 / 350 Balance -200 / -200 -350 / -350 Consult Discharge Plan - Plan Referrals: Lluvia Palomino, LEGAL EXAMINER [Primary Care Provider] -
[2018-10-22] MEDS: Metoprolol XL (24 HR) Succ 50 MG TAB.ER.24H PO SCH (08:29)
[2018-10-22] MEDS: Folic Acid 1 MG TABLET PO SCH (08:29)
[2018-10-22] MEDS: Isosorbide MONOnitrate (24 HR) 60 MG TAB.ER.24H PO SCH (08:29)
[2018-10-22] MEDS: Diltiazem CD (24hr) 120 MG CAPSULE PO SCH (08:30)
[2018-10-22] MEDS: Aspirin 81 MG TAB.CHEW PO SCH (08:30)
[2018-10-22] MEDS: SACUBITRIL/VALSARTAN 24/26 MG TABLET PO SCH (08:30)
[2018-10-22] MEDS: Gabapentin 300 MG CAPSULE PO SCH ×4 (08:30→19:58)
[2018-10-22] MEDS: Furosemide 20 MG TABLET PO SCH (08:30)
[2018-10-22] MEDS: Cyanocobalamin (B-12) 1,000 MCG TABLET PO SCH (08:40)
[2018-10-22] MEDS ORDERED: Furosemide 20 MG/2 ML VIAL IVP ONE (09:32)
--- NOTE | 2018-10-22 11:09 | Oncology Inp Progress Note ---
<Palak Morrisi - Last Filed: 10/22/18 15:36> Date of Encounter: 10/22/18 Time of Encounter: 15:36 Oncology: Obj Data - Labs CBC & Chem 7: 10/22/18 01:05 10/22/18 01:05 Consult Discharge Plan - Plan Referrals: lLuvia Palomino, FILE CLERK [Primary Care Provider] - Inpatient Charges Follow up - Inpatient: [id number] - Attending Attestation I examined this patient and my medical decision-making was reviewed with the Advanced Practice Nurse. I agree with the documented findings, disposition and treatment plan as described except to the extent set forth below. -Plts stable at 37. -D/c'ed Argatroban gtt, now on Arixtra SQ. -HIT Ab pending. -GI c/s for reflux/ gastritis, appreciate recommendations. <Galina Prado - Last Filed: 10/22/18 15:46> Date of Encounter: 10/22/18 (1) Thrombocytopenia Current Visit: Yes Status: Acute Assessment and plan: Intermediate suspicion for HIT according to calculation of 4T's score, high clinical suspicion given timing and history His thrombocytopenia is also complicated by recent CHRISTIN placed on 09/29/2018 Differentials other than HIT may include infectious etiology vs. ITP vs. other LDH and indirect bili noted to be elevated above baseline, jose manuel and haptoglobin pending Does not appear to be consistent with TTP given that patient does not have ane maureen or renal dysfunction Blood smear pending Fibrinogen elevated ruling out DIC process Hepatitis B and C screen nonreactive Retic normal Jose Manuel 1+ Plan: HIT PF4 IgG-Argatroban stopped due to elevations in PT/INR/PTT at baseline impeding titration of medication-started arixtra until PF4 resulted Discussed need of urgency for HIT PF4 results with lab-they will be notified with results by noon on 10/23 We will also go ahead and send serotonin release assay Blood smear pending Maintain high index for suspected thrombotic events Haptoglobin pending Cardiology on board, appreciate recommendations, recommend continuing DAP-on ASA and Plavix Currently no s/s bleeding, continue to monitor, if patient develops active s/s bleeding then the risk for clotting vs. risk for bleeding would need to be carefully weighed therefore would recommend cautious platelet transfusion in the event of active bleeding if plt <50 in the setting of suspected HIT B12/folate supplements started Oncology: Subj Interval history: Mr. Lambert is resting in bed. His is at bedside. He states he has an episode of epigastric discomfort earlier this morning that was relieved by oxycodone. He is currently pain free. He denies headache, dizziness, chest pain, SOB, nausea, vomiting, abdominal pain, diarrhea, lower or upper extremity pain, edema or erythema. He continues to deny any s/s bleeding. - Constitutional General appearance: cooperative, no acute distress, no febrile - Head Head exam: Present: atraumatic - ENT ENT exam: Present: mucous membranes moist, normal oropharynx - Respiratory Respiratory exam: Present: decreased breath sounds, CTAB. Absent: respiratory distress - Cardiovascular Cardiovascular exam: Present: RRR - GI/Abdominal GI/Abdominal exam: Present: normal bowel sounds, soft. Absent: tenderness - Extremities Exam Extremities exam: Present: normal inspection. Absent: calf tenderness Additional comments: mild pedal edema at baseline chronic skin changes noted to BLE - Neurological Exam Neurological exam: Present: alert, oriented X3, no focal deficits, strengths equal and symetr throughout - Psychiatric Psychiatric exam: Present: normal affect, normal mood - Skin Skin exam: Present: dry, intact, normal color, warm Oncology: Obj Data - Labs CBC & Chem 7: 10/22/18 01:05 10/22/18 01:05 Inpatient Charges Provider: Dr. Katharine Morris
--- NOTE | 2018-10-22 11:20 | Internal Med Progress Note ---
Hospitalist Progress Note - Encounter Date of Encounter: 10/22/18 Time of Encounter: 08:30 - Subjective Interval History: Mr. Lambert is a 68 year old male patient with a history of coronary artery disease status post recent stent on 09/29/2018 in the mLAD, systolic congestive heart failure, Ischemic cardiomyopathy, atrial fibrillation on anticoagulation with Eliquis who presented to the ER with complaints of acute epigastric pain that has been going on for past couple of days associated with pain going down into his abdomen along with diarrhea. He also noticed some blood on toilet paper but normal stool noticed. Earlier this month he had stent placed to mid LAD. He had type B dissection with proximal edge of the first place stent. As such a secondary stent was deployed proximally. Patient has been on dual antiplatelet therapy since then. He presented to the ER with chest pain again one week back during which time he was placed on IV heparin. He was eventually discharged home on Imdur. Patient has been on Eliquis for anticoagulation since his initial admission earlier this month. Now his platelets were at 45 with concerning for heparin induced thrombocytopenia. He was admitted in the hospital and held his anti coag Eliquis and started him on Argtroban gtt. he denied any CP. His abd pain better with current pain medication. Denied any more diarrhea / blood in his stool. - Exam Vitals: Temp Pulse Resp BP Pulse Ox 98.5 F 95 16 123/78 97 10/22/18 07:13 10/22/18 07:13 10/22/18 07:13 10/22/18 07:13 10/22/18 07:13 Exam: Gen: Alert, awake, Oriented to time,place and person Chest: Diminished breath sounds B/L, mild wheezing, No crackles, No rales Heart: S1S2+ Afib, No murmurs Abd: Soft, Mild discomfort in, BS +, No organomegaly Ext: Trace edema, pulses are palpable, No calf tenderness Neuro : Benign findings Skin: No rash. - Assessment and Plan (1) Heparin induced thrombocytopenia Current Visit: Yes Status: Acute Assessment and Plan: Platelets still trending down.. Now @ 37 concerning for HIT especially with his recent heparin therapy a week ago as well as during 09/30 hospitalization too. Heme Onc consulted Reviewed lab work C4 level low @ 9, Hep panel - non reactive LDH-311, Fibrinogen elevated @ 572 Waiting on HIT panel appreciate Heme Onc recommendations cont holding Eliquis and avoid heparin inj Switched to Arixtra gtt Patient does need to stay in the hospital more than 2 midnights due to his compl ex medical problems. So we will change him to full admission today. I did review my colleague Dr. Rice's H & P including HPI, PMH, PSH, FH, SH, and ROS no changes noticed (2) Abdominal pain Current Visit: Yes Status: Acute Assessment and Plan: Epigastric abd pain could be viral gastroenteritis also concerning for ischemic CP. Card on board cont PPI and G.I cocktail G.I consulted (3) Congestive heart failure Current Visit: Yes Status: Acute Assessment and Plan: He does have mild CHF exacerbation He was little hypoxic too switched to IV lasix 40mg BID for now Continue Lasix, BB, ASA, Statin and entresto. Monitor input and output (4) Acute and chronic respiratory failure with hypoxia Current Visit: Yes Status: Acute Assessment and Plan: mostly due to CHF as well as due to severe Pulm HTN too on IV Lasix frequent bronchodilator therapy may need home O2 eval (5) Elevated LFTs Current Visit: Yes Status: Acute Assessment and Plan: Chronically elevated due to hepatic congestion with Rt heart failure cont close monitoring (6) Atrial fibrillation Current Visit: Yes Status: Chronic Assessment and Plan: Chronic Afib Rate well controlled now with Metoprolol XL and new med Cardizem CD 120mg Held Eliquis for anti coag due to HIT Switched to Arixtra inj (7) CAD (coronary artery disease) Current Visit: Yes Status: Chronic Assessment and Plan: Patient with recent coronary stent. On dual antiplatelet therapy. However patient does have low platelets. Concerning for thrombotic events with HIT Consulted cardiology to evaluate patient to see if he needs any medications to be changed. For now continue aspirin and Plavix. Patient has mild troponin elevation mostly due to demand ischemia and chronic too His abd pain is concerning for posisble ischemic CAD Card recommend to continue current care (8) Cardiomyopathy Current Visit: Yes Status: Chronic Assessment and Plan: Management as above (9) Hematochezia Current Visit: Yes Status: Acute Assessment and Plan: Denied any blood in stool he noticed some bright red blood on toilet paper concerning for hemorrhoidal bleeding His stool hemoccult is negative Consulted GI for further eval on PPI BID (10) Diabetes mellitus, type 2 Current Visit: Yes Status: Chronic Assessment and Plan: ADA diet on ISS (11) JOSE (obstructive sleep apnea) Current Visit: Yes Status: Suspected Assessment and Plan: Strongly suspect that the patient has underlying obstructive sleep apnea. CT of the chest also suggest pulmonary hypertension. Pulm consulted Recommend out pt sleepy study Also will do ambulating pulse oxy - Time Spent with Patient Total time spent is greater than 50% in coordination of care (as documented) at patient's floor/unit and/or counseling patient: Internal Medicine: Result - Labs CBC & Chem 7: 10/22/18 01:05 10/22/18 01:05 Labs: Short CBC 10/21/18 10/22/18 Range/Units 04:15 01:05 WBC 14.5 H 11.0 (4.3-11.1) K/mcL Hgb 14.1 13.6 (12.9-16.9) g/dL Hct 43.9 42.1 (37.5-50.1) % Plt Count 37 L 37 L (140-400) K/mcL Neutrophils # 11.9 H 8.7 (1.6-8.9) K/mcL BMP 10/22/18 01:05 Sodium 135 L Potassium 4.7 Chloride 104 Carbon Dioxide 25 BUN 19 Creatinine 0.70 Glucose 164 H Calcium 8.2 L Liver Function 10/21/18 10/22/18 Range/Units 10:49 01:05 Total Bilirubin 3.4 H 2.2 H (0.3-1.0) mg/dL Direct Bilirubin 1.2 H (0.0-0.2) mg/dL AST 40 H (13-39) Units/L ALT 48 (7-52) Units/L Alkaline Phosphatase 59 (34-104) Units/L Albumin 2.9 L (3.5-5.7) g/dL - ABG Interpretation ABG results: PT/INR, D-dimer PT 37.5 Seconds (9.4-12.1) H 10/21/18 10:49 - Impressions Impressions CT Dissection 10/20/18 14:46 IMPRESSION: 1. No acute abnormality of the thoracoabdominal aorta. No aneurysm or dissection. No significant arterial stenosis. 2. Mild cardiomegaly with left ventricular hypertrophy. 3. Severe LAD and moderate RCA coronary artery cacification. 4. Enlarged main pulmonary artery suggests pulmonary hypertension. 5. Bilateral adrenal adenomas, left greater than right. 6. Scattered colonic diverticulosis without acute diverticulitis. 7. Nonspecific mild rectal wall thickening. 8. Enlarged prostate. 9. Minimal ascites with mild anasarca. D/ / 10/20/2018 16:51:07 Geoffrey Kay MD / [facility] Interpreting Provider: Geoffery Kay MD Consult Discharge Plan - Plan Referrals: Lluvia Palomino, RAILWAYS ASSISTANT [Primary Care Provider] - (2) Abdominal pain Qualifiers: Abdominal location: epigastric Qualified Code(s): R10.13 - Epigastric pain (3) Congestive heart failure Qualifiers: Heart failure type: systolic Heart failure chronicity: acute on chronic Qualified Code(s): I50.23 - Acute on chronic systolic (congestive) heart failure (6) Atrial fibrillation Qualifiers: Atrial fibrillation type: unspecified Qualified Code(s): I48.91 - Unspecified atrial fibrillation (7) CAD (coronary artery disease) Qualifiers: Coronary Disease-Associated Artery/Lesion type: [place] artery [place] vs. 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
--- NOTE | 2018-10-22 11:38 | Cardiology Progress Note ---
Date of Encounter: 10/22/18 Time of Encounter: 11:40 Assessment and Plan (1) Abdominal pain Current Visit: Yes Status: Acute Per Cardiology: Presents with recurrent epigastric and abdominal pain similar to what he experienced during hospital stay last week. Again, symptoms are dissimilar to what he experienced August 2018 when he received stent. Has reported history of GERD. Consider GI evaluation. Qualifiers: Abdominal location: epigastric Qualified Code(s): R10.13 - Epigastric pain (2) Elevated troponin Current Visit: No Status: Acute Per Cardiology: Peak troponin August 2018 0.08, last week 0.08, and now 0.08. All troponins flat and adynamic. Do not suspect non-STEMI. Repeat limited echo from last week showed EF improved to 45-50% from 40-45%. Discussed with Dr. Sauer, no further ischemic evaluation warranted at this time. Follow-up in outpatient setting. Patient and family agreed with plan. (3) CAD (coronary artery disease) Current Visit: Yes Status: Chronic Per Cardiology: [facility] 08/2018: Impressions: There is severe one vessel coronary artery disease. Patient had successful PTCA/Drug-Eluting Stent placement in the mid LAD. FFR Measurement: 0.76 Type B dissection in the proximal edge of first placed stent hence a second STENT was deployed proximally Lesion Findings/Interventions * Left Main Coronary Artery The LMCA is angiographically free of disease. * Left Anterior Descending There is a 36 mm long, 70% stenosis in the Mid LAD. The lesion has a KRISTEL flow of 3. An intervention was performed on the Mid LAD with a final stenosis of 0%. There were no lesion complications. The final KRISTEL flow was 3. * Circumflex The Circumflex is angiographically free of disease. The 1st Marginal is angiographically free of disease. * Right Coronary Artery There is a 40% stenosis in the Mid RCA. On aspirin, Plavix, statin, beta sohail, long-acting nitrate. Qualifiers: Coronary Disease-Associated Artery/Lesion type: [place] artery [place] vs. transplanted heart: [place] heart Associated angina: angina presence unspecified Qualified Code(s): I25.10 - Atherosclerotic heart disease of [place] coronary artery without angina pectoris (4) Thrombocytopenia Current Visit: Yes Status: Acute Per Cardiology: Platelets on low side of normal during initial hospital stay and now down to 37. Hematology following. H&H stable. No signs of spontaneous bleeding. Patient on aspirin and Plavix-- had recent stenting placed 09/29/2018. On Argratobran. Discussed yesterday with Dr. Fox and today with Dr. Sauer, recommend remain on aspirin and Plavix. Patient and family aware of increased bleeding risk. Cardiology signed off, reconsult as needed, follow-up as planned. (5) Cardiomyopathy Current Visit: Yes Status: Chronic Per Cardiology: EF improved from 40-45% to 45-50% from echo on last hospital stay. Euvolemic on exam. ON BB and Entresto. Qualifiers: Cardiomyopathy type: ischemic Qualified Code(s): I25.5 - Ischemic cardiomyopathy (6) Atrial fibrillation Current Visit: Yes Status: Chronic Per Cardiology: Apparent new onset during hospital stay August 2018. Average heart rate the past 12 hours on telemetry 87. On BB and CCB-- discussed with Dr. Fox. Regarding long-term anticoagulation, currently off Eliquis. Patient and family aware of increased stroke risk. Recommend long-term anticoagulation be addressed by hematology. Qualifiers: Atrial fibrillation type: unspecified Qualified Code(s): I48.91 - Unspecified atrial fibrillation Discussion w patient/family: The assessment and plan as outlined above was discussed with the patient and/or family members who expressed understanding and agreement. All questions were answered. Thank you for involving us in the care of your patient. Please call with any questions. Subjective Principal diagnosis: Epigastric pain Interval history: No significant changes overnight. Continues to deny chest pain, does have intermittent epigastric pain. Denies any active bleeding or blood loss. Objective Selected Entries 10/22/18 07:13 10/22/18 08:30 Temperature 98.5 F Pulse Rate 95 Respiratory Rate 16 Blood Pressure 123/78 O2 Sat by Pulse Oximetry 97 Oxygen Flow Rate (LPM) 2 Oxygen Delivery Method Nasal Cannula General: Conversant, No Apparent Distress HEENT: Atraumatic, Normocephaly, Mucus Membranes Moist Neck: No JVD, Normal carotid pulses Cardiac: Reg Rate and Rhythm, Normal S1 and S2, No Murmur Lungs: Normal Breath Sounds, No Wheeze, Rales, Rhonchi Neuro: Alert and responsive, No focal deficits noted Abdomen: Soft, Non-Tender Skin: No rashes noted on visualized skin Musculoskeletal: No Chest Wall Tenderness Extremities: No Clubbing, No Cyanosis, No Edema, Normal Pulses Results 10/22/18 01:05 10/22/18 01:05 Lab Results Laboratory Tests 10/20/18 10/22/18 10/22/18 19:07 01:05 01:05 Hgb 13.6 Hct 42.1 Plt Count 37 L Creatinine 0.70 Est GFR (Non-Af Amer) > 60 Troponin I 0.08 H* Impressions CT Dissection 10/20/18 14:46 IMPRESSION: 1. No acute abnormality of the thoracoabdominal aorta. No aneurysm or dissection. No significant arterial stenosis. 2. Mild cardiomegaly with left ventricular hypertrophy. 3. Severe LAD and moderate RCA coronary artery cacification. 4. Enlarged main pulmonary artery suggests pulmonary hypertension. 5. Bilateral adrenal adenomas, left greater than right. 6. Scattered colonic diverticulosis without acute diverticulitis. 7. Nonspecific mild rectal wall thickening. 8. Enlarged prostate. 9. Minimal ascites with mild anasarca. D/ / 10/20/2018 16:51:07 Geoffrey Kay MD / [facility] Interpreting Provider: Geoffrey Kay MD Active Medications Aspirin (Aspirin) 81 mg PO DAILY [facility] Stop: 04/22/19 09:01 Last Admin: 10/22/18 08:30 Dose: 81 mg Atorvastatin Calcium (Lipitor) 40 mg PO HS [facility] Stop: 04/21/19 21:01 Last Admin: 10/21/18 20:45 Dose: 40 mg Clopidogrel Bisulfate (Plavix) 75 mg PO DAILY [facility] Stop: 04/22/19 09:01 Last Admin: 10/22/18 11:12 Dose: 75 mg Cyanocobalamin (Vitamin B12) 1,000 mcg PO DAILY [facility] Stop: 04/23/19 09:01 Last Admin: 10/22/18 08:40 Dose: 1,000 mcg Diltiazem HCl (Cardizem Cd) 120 mg PO DAILY [facility] Stop: 04/22/19 15:16 Last Admin: 10/22/18 08:30 Dose: 120 mg Folic Acid (Folic Acid) 1 mg PO DAILY [facility] Stop: 04/23/19 09:01 Last Admin: 10/22/18 08:29 Dose: 1 mg Furosemide (Lasix) 40 mg PO BIDDIURETIC [facility] Stop: 04/21/19 21:01 Last Admin: 10/22/18 08:30 Dose: 40 mg Gabapentin (Neurontin) 300 mg PO QID [facility] Stop: 04/21/19 21:01 Last Admin: 10/22/18 08:30 Dose: 300 mg Argatroban 250 mg/ Dextrose 252.5 mls @ 3.5 mls/hr IVC CONT [facility]; Protocol Stop: 04/21/19 21:01 Last Titration: 10/21/18 05:03 Dose: 0 mcg/kg/min, 0 mls/hr Isosorbide Mononitrate (Imdur) 60 mg PO DAILY [facility] Stop: 04/23/19 09:01 Last Admin: 10/22/18 08:29 Dose: 60 mg Metoprolol Succinate (Toprol Xl) 200 mg PO DAILY [facility] Stop: 04/22/19 09:01 Last Admin: 10/22/18 08:29 Dose: 200 mg Metoprolol Tartrate (Lopressor) 5 mg IVP Q6HR PRN PRN Reason: tachyarrythmia Stop: 04/21/19 18:19 Naloxone HCl (Narcan) 0.4 mg IVP Q2M PRN PRN Reason: SEE COMMENTS Stop: 04/21/19 17:27 Nitroglycerin (Nitroglycerin) 0.4 mg SL Q5MIN PRN PRN Reason: Chest Pain Stop: 04/21/19 18:01 Oxycodone HCl (Oxycodone Oral Conc) 5 mg SL Q6HR PRN; Protocol PRN Reason: Moderate Pain Stop: 04/21/19 18:20 Last Admin: 10/22/18 06:49 Dose: 5 mg Pantoprazole Sodium (Protonix) 40 mg IVP Q12HR [facility] Stop: 04/21/19 18:01 Last Admin: 10/22/18 05:57 Dose: 40 mg Potassium Chloride (Potassium Chloride) 40 meq PO DAILY [facility] Stop: 04/22/19 09:01 Last Admin: 10/22/18 08:30 Dose: 40 meq Sacubitril/Valsartan (Entresto 24 Mg-26 Mg Tablet) 1 tab PO DAILY [facility] Stop: 04/22/19 09:01 Last Admin: 10/22/18 08:30 Dose: 1 tab Consult Discharge Plan - Plan Referrals: Lluvia Palomino, PHOTO MACHINE OPERATOR [Primary Care Provider] -
[2018-10-22] MEDS: *HR* Fondaparinux 7.5 MG/0.6 ML SYRINGE SQ SCH (13:56)
[2018-10-22] MEDS: *HR* Fondaparinux 2.5 MG/0.5 ML SYRINGE SQ SCH (13:56)
--- NOTE | 2018-10-22 15:03 | Gastroenterology Consult Note ---
Date of Encounter: 10/22/18 Time of Encounter: 12:15 - Assessment and plan (1) BRBPR (bright red blood per rectum) Current Visit: Yes Status: Acute Assessment and plan: Patient reports one episode of BRBPR with wiping 2 days ago, and no further episodes. Fecal occult blood test was negative. On admission Hgb 14.7 and today Hgb 13.6. INR 3.3 yesterday. Consider colonoscopy inpatient vs outpatient. Will need INR < 1.5 for colonoscopy. Will discuss with Dr. Son. (2) Thrombocytopenia Current Visit: Yes Status: Acute Assessment and plan: Possible HIT, Hematology following. (3) Epigastric pain Current Visit: Yes Status: Acute Assessment and plan: Continue PPI. Consider EGD when colonoscopy is completed. Will need INR < 1.5. Patient educated regarding lifestyle modifications including: (1) avoidance of foods that may precipitate reflux (eg, coffee, alcohol, chocolate, fatty foods). (2) avoidance of acidic foods that may precipitate heartburn (eg, citrus, carbonated drinks, spicy foods). (3) adoption of behaviors that may reduce esophageal acid exposure (see weight loss, smoking cessation, raising the head of the bed, and avoiding recumbency for 2-3 hours after meals). - Time Spent With Patient Total time spent is greater than 50% in coordination of care (as documented) at patient's floor/unit and/or counseling patient: GI History of Present Illness - Data of Consult Patient: new to practice Consult date: 10/22/18 Requesting Physician: Tino Akers MD - Consult Narrative Reason for consult: Acute GI Bleed History of present illness: Mr. Lambert is a 68 year old male with PMHx of Afib, CHF, CAD status post recent stent, GERD, HTN who presented to the ED with 2 days of epigastric pain and occasional diarrhea. He reports BRBPR with wiping 2 days ago, and no further episodes since that time. He denies fever, chills, chest pain. He is on dual antiplatelet therapy following [facility] with stent placement. Platelets low on admission at 45, thought to be due to HIT. Hematology is following and was started on Argatroban. On admission Hgb 14.7 and today Hgb 13.6. Procedures: EGD 03/27/2017 Dr. Ward: Irregular Z line, gastritis. EGD 12/15/2016 Dr. Ward: Gastritis, nonbleeding gastric ulcer. EGD 09/19/2016 Dr. Ward: LA grade C reflux esophagitis, gastritis. Colonoscopy 10/05/2015 Dr. Ward: Diverticulosis, 5 hyperplastic polyps. NSAIDs: ASA Anticoagulation: Plavix, Eliquis Past Med Surg Social Fam HX - Past Medical History Medical history: arthritis, atrial fibrillation, CHF, coronary artery disease, GERD, hypertension Psychiatric history: no psych history - Past Surgical History Surgical History: appendectomy, herniorrhaphy, orthopedic, other Additional surgical history: foot drop bilaterally, Right hip surgery, left knee replacement. - Social History Smoking Status: Never smoker Smokeless Tobacco Status: No Alcohol use: none Drug use: none - Family History Mother Living Status: Hx Family Cancer: Yes Father Living Status: Hx Family Cardiac Disorders: No Hx Family Respiratory Disorders: No Hx Family Cancer: Yes (pancreatic) Hx Family Endocrine Disorder: Yes (Pts father was diabetic) - Gastrointestinal Gastrointestinal: Present: as per HPI - Constitutional Constitutional: as per HPI - EENT Eyes: as per HPI Ears: Present: as per HPI Nose, mouth and throat: Present: as per HPI - Cardiovascular Cardiovascular ROS: Present: as per HPI - Respiratory Respiratory IM: Present: as per HPI - Genitourinary Genitourinary: Absent: change in color, Urinary frequency - Neurological ROS Neurological GI: Present: as per HPI - Hematologic/Lymphatic Hematologic/Lymphatic pediatric: Present: as per HPI - Musculoskeletal Musculoskeletal ROS GI: Present: as per HPI - Integumentary Integumentary GI: Present: as per HPI - Psychiatric ROS Psychiatric GI: Present: as per HPI - Endocrine Endocrine IM: Present: as per HPI - Constitutional Vitals: Temp Pulse Resp BP Pulse Ox 98.5 F 95 16 123/78 97 10/22/18 07:13 10/22/18 07:13 10/22/18 07:13 10/22/18 07:13 10/22/18 07:13 General appearance: Present: cooperative, A&O X 3, no acute distress, answers questions appropriately - Head Head exam: Present: atraumatic, normocephalic - Eye Eye exam: Present: normal appearance, sclera anicteric - ENT ENT exam: Present: mucous membranes moist - Neck Neck exam general surgery: Present: normal inspection, trachea midline - Respiratory Respiratory exam: Present: CTAB. Absent: rales, rhonchi - Cardiovascular Cardiovascular exam: Present: RRR, +S1, +S2 - GI/Abdominal GI/Abdominal exam: Present: soft, no peritoneal signs. Absent: distended, firm, guarding, tenderness - Rectal Rectal exam: Present: deferred - Extremities Exam Extremities exam: Present: warm - Neurological Exam Neurological exam: Present: no focal deficits - Psychiatric Psychiatric exam: Present: normal affect, normal mood - Skin Skin exam: Present: dry, intact, normal color, warm Results - Labs CBC & Chem 7: 10/22/18 01:05 10/22/18 01:05 Labs: Last Result Calcium 8.2 mg/dL (8.6-10.3) L 10/22/18 01:05 Troponin I 0.06 ng/mL (< 0.04) H* 10/21/18 00:55 Vitamin B12 339 pg/mL (250-1100) 10/21/18 10:49 Folate 6.7 ng/mL (3.0-16.0) 10/21/18 10:49 Entire Visit Hgb 13.6 g/dL (12.9-16.9) 10/22/18 01:05 Hct 42.1 % (37.5-50.1) 10/22/18 01:05 PT 37.5 Seconds (9.4-12.1) H 10/21/18 10:49 Total Bilirubin 2.2 mg/dL (0.3-1.0) H 10/22/18 01:05 AST 40 Units/L (13-39) H 10/22/18 01:05 ALT 48 Units/L (7-52) 10/22/18 01:05 Lipase < 3 Units/L (11-82) L 10/20/18 14:46 Folate 6.7 ng/mL (3.0-16.0) 10/21/18 10:49 - ABG ABG results: PT/INR, D-dimer PT 37.5 Seconds (9.4-12.1) H 10/21/18 10:49 - Impressions Impressions CT Dissection 10/20/18 14:46 IMPRESSION: 1. No acute abnormality of the thoracoabdominal aorta. No aneurysm or dissection. No significant arterial stenosis. 2. Mild cardiomegaly with left ventricular hypertrophy. 3. Severe LAD and moderate RCA coronary artery cacification. 4. Enlarged main pulmonary artery suggests pulmonary hypertension. 5. Bilateral adrenal adenomas, left greater than right. 6. Scattered colonic diverticulosis without acute diverticulitis. 7. Nonspecific mild rectal wall thickening. 8. Enlarged prostate. 9. Minimal ascites with mild anasarca. D/ / 10/20/2018 16:51:07 Geoffrey Kay MD / [facility] Interpreting Provider: Geoffrey Kay MD Consult Discharge Plan - Plan Referrals: Lluvia Palomino CNP [Primary Care Provider] -
[2018-10-22] MEDS: Furosemide 40 MG/4 ML VIAL IVP SCH (15:40)
[2018-10-22] MEDS ORDERED: SODIUM CHLORIDE/NAHCO3/KCL/PEG 4,000 ML SOLN.RECON PO ONE (17:00)
[2018-10-23] MEDS ORDERED: cefTRIAXone 1,000 MG in Water for inj. (sterile) 20 ML 10 ML IVPB ONE (00:19)
--- NOTE | 2018-10-23 00:23 | Event Note ---
Date of Encounter: 10/22/18 Time of Encounter: 20:04 Alerted by patient's nurse JOSE Salgado that the patient was complaining of penile inflammation and burning/stinging with urination. Patient reported this has happened before. Went to see patient who was resting in bed. Pt. stated that this had happened approximately 10-11 years ago and stemmed from trying to urinate while bending his penis over his underwear to use the urinal. Examined pts. penis which was erythematous and edematous at the glans at the urethral opening. I asked the pt. if he had multiple sex partners which he denied. I then asked if he has any erection problems to which he stated no. Pt. denied UTI hx and stated that the last time this happened he was placed on abx which helped. Pt. denied any jelqing or manipulation of any kind. Urine culture ordered stat. One-time dose of Rocephin ordered. Pt. then educated to avoid bending his penis. Nurse instructed to continue monitoring pt. closely and alert me immediately of any adverse changes. Pt. could benefit from a Urology consult at discharge.
[2018-10-23 05:41] LABS: Basophils % 0.4 %; Hemoglobin 13.2 g/dL (12.9-16.9); Immature Granulocytes % 0.5 % (0-4)
[2018-10-23 05:43] LABS: Eosinophils # 0.2 K/mcL (0.0-0.6); Hematocrit 41.8 % (37.5-50.1); Immature Platelets 14.5 % (1.1-6.1); Lymphocytes # 0.9 K/mcL (0.6-4.6); Lymphocytes % 8.7 %; Mean Corpuscular HGB Conc 31.6 g/dL (31.6-35.5); Mean Corpuscular Hemoglobin 29.2 pg (28.0-33.3); Mean Corpuscular Volume 92.5 fL (83.0-100.0); Mean Platelet Volume 12.9 fL (9.4-12.4); Neutrophils # 7.7 K/mcL (1.6-8.9); Red Blood Count 4.52 M/mcL (4.19-5.50); Red Cell Distribution Width 14.3 % (11.5-14.5); Segmented Neutrophils % 78.4 %
[2018-10-23 05:45] LABS: Platelet Count 47 K/mcL (140-400)
[2018-10-23 06:01] LABS: Alanine Aminotransferase 64 Units/L (7-52); Albumin 3.1 g/dL (3.5-5.7); Albumin/Globulin Ratio 1.2 (1.1-2.2); Alkaline Phosphatase 88 Units/L (34-104); Aspartate Amino Transferase 52 Units/L (13-39); BUN/Creatinine Ratio 23 (6-26); Bilirubin,Total 1.5 mg/dL (0.3-1.0); Blood Urea Nitrogen 19 mg/dL (8-23); Calcium 8.4 mg/dL (8.6-10.3); Carbon Dioxide 25 mEq/L (23-29); Chloride 100 mEq/L (98-107); Globulin 2.6 g/dL (2.4-3.5); Glucose 153 mg/dL (70-105); Magnesium 2.1 mg/dL (1.6-2.6); Osmolality,Calculated 285 (280-300); Potassium 4.3 mEq/L (3.5-5.1); Sodium 135 mEq/L (136-145); Total Protein 5.7 g/dL (6.4-8.9); eGFR For Non-African Americans > 60 (> 60)
[2018-10-23] MEDS: Pantoprazole 40 MG VIAL IVP SCH ×2 (06:05→17:19)
[2018-10-23] MEDS: SACUBITRIL/VALSARTAN 24/26 MG TABLET PO SCH (07:27)
[2018-10-23] MEDS: Folic Acid 1 MG TABLET PO SCH (07:27)
[2018-10-23] MEDS: Diltiazem CD (24hr) 120 MG CAPSULE PO SCH (07:27)
[2018-10-23] MEDS: Isosorbide MONOnitrate (24 HR) 60 MG TAB.ER.24H PO SCH (07:27)
[2018-10-23] MEDS: Cyanocobalamin (B-12) 1,000 MCG TABLET PO SCH (07:27)
[2018-10-23] MEDS: Metoprolol XL (24 HR) Succ 50 MG TAB.ER.24H PO SCH (07:27)
[2018-10-23] MEDS: Gabapentin 300 MG CAPSULE PO SCH ×4 (07:27→21:38)
[2018-10-23] MEDS: Aspirin 81 MG TAB.CHEW PO SCH (07:28)
[2018-10-23] MEDS: Furosemide 40 MG/4 ML VIAL IVP SCH ×2 (07:39→17:16)
[2018-10-23] MEDS: OXYCODONE Oral CONC 10 MG/0.5 ML ORAL.SYG SL PRN ×2 (07:44→15:01)
--- NOTE | 2018-10-23 11:31 | Internal Med Progress Note ---
Hospitalist Progress Note - Encounter Date of Encounter: 10/23/18 Time of Encounter: 11:00 - Subjective Interval History: Mr. Lambert is a 68 year old male patient with a history of coronary artery disease status post recent stent on 09/29/2018 in the mLAD, systolic congestive heart failure, Ischemic cardiomyopathy, atrial fibrillation on anticoagulation with Eliquis who presented to the ER with complaints of acute epigastric pain that has been going on for past couple of days associated with pain going down into his abdomen along with diarrhea. He also noticed some blood on toilet paper but normal stool noticed. Earlier this month he had stent placed to mid LAD. He had type B dissection with proximal edge of the first place stent. As such a secondary stent was deployed proximally. Patient has been on dual antiplatelet therapy since then. He presented to the ER with chest pain again one week back during which time he was placed on IV heparin. He was eventually discharged home on Imdur. Patient has been on Eliquis for anticoagulation since his initial admission earlier this month. Now his platelets were at 45 with concerning for heparin induced thrombocytopenia. He was admitted in the hospital and held his anti coag Eliquis and started him on Arixtra SQ inj. He denied any CP, however still c/o intermittent epigastric abd pain. His abd pain better with current pain medication. Denied any more diarrhea / blood in his stool. - Exam Vitals: Temp Pulse Resp BP Pulse Ox 97.7 F 91 16 124/75 96 10/23/18 11:15 10/23/18 11:15 10/23/18 11:15 10/23/18 11:15 10/23/18 11:15 Exam: Gen: Alert, awake, Oriented to time,place and person Chest: Diminished breath sounds B/L, mild wheezing, No crackles, No rales Heart: S1S2+ Afib, No murmurs Abd: Soft, Mild discomfort in epigastric region, BS +, No organomegaly Ext: Trace edema, pulses are palpable, No calf tenderness Neuro : Benign findings Skin: No rash. - Assessment and Plan (1) Heparin induced thrombocytopenia Current Visit: Yes Status: Acute Assessment and Plan: Platelets started improving slowly. Now @ 47 concerning for HIT especially with his recent heparin therapy a week ago as well as during 09/30 hospitalization too. Heme Onc on board Reviewed lab work C4 level low @ 9, Hep panel - non reactive LDH-311, Fibrinogen elevated @ 572 Waiting on HIT panel appreciate Heme Onc recommendations cont holding Eliquis and avoid heparin inj Switched to Arixtra SQ inj (2) Abdominal pain Current Visit: Yes Status: Acute Assessment and Plan: Epigastric abd pain could be viral gastroenteritis also concerning for ischemic CP. Card on board cont PPI and G.I cocktail G.I consulted (3) CAD (coronary artery disease) Current Visit: Yes Status: Chronic Assessment and Plan: Patient with recent coronary stent. On dual antiplatelet therapy. However patient does have low platelets. Concerning for thrombotic events with HIT Consulted cardiology to evaluate patient to see if he needs any medications to be changed. For now continue aspirin and Plavix. Patient has mild troponin elevation mostly due to demand ischemia and chronic too His abd pain is concerning for posisble ischemic CAD Card recommend to continue current care (4) Congestive heart failure Current Visit: Yes Status: Acute Assessment and Plan: He does have mild CHF exacerbation He was little hypoxic too switched to IV lasix 40mg BID His SOB better now he is off the O2 Continue Lasix, BB, ASA, Statin and entresto. Monitor input and output (5) Elevated LFTs Current Visit: Yes Status: Acute Assessment and Plan: Chronically elevated due to hepatic congestion with Rt heart failure cont close monitoring (6) Atrial fibrillation Current Visit: Yes Status: Chronic Assessment and Plan: Chronic Afib Rate well controlled now with Metoprolol XL and new med Cardizem CD 120mg Held Eliquis for anti coag due to HIT Switched to Arixtra inj (7) Cardiomyopathy Current Visit: Yes Status: Chronic Assessment and Plan: Management as above (8) Hematochezia Current Visit: Yes Status: Acute Assessment and Plan: Denied any blood in stool he noticed some bright red blood on toilet paper concerning for hemorrhoidal bleeding His stool hemoccult is negative Consulted GI for further eval on PPI BID (9) Diabetes mellitus, type 2 Current Visit: Yes Status: Chronic Assessment and Plan: ADA diet on ISS (10) JOSE (obstructive sleep apnea) Current Visit: Yes Status: Suspected Assessment and Plan: Strongly suspect that the patient has underlying obstructive sleep apnea. CT of the chest also suggest pulmonary hypertension. Pulm consulted Recommend out pt sleepy study Also will do ambulating pulse oxy - Time Spent with Patient Total time spent is greater than 50% in coordination of care (as documented) at patient's floor/unit and/or counseling patient: Internal Medicine: Result - Labs CBC & Chem 7: 10/23/18 04:31 10/23/18 04:31 Labs: Short CBC 10/23/18 Range/Units 04:31 WBC 9.8 (4.3-11.1) K/mcL Hgb 13.2 (12.9-16.9) g/dL Hct 41.8 (37.5-50.1) % Plt Count 47 L (140-400) K/mcL Neutrophils # 7.7 (1.6-8.9) K/mcL BMP 10/23/18 04:31 Sodium 135 L Potassium 4.3 Chloride 100 Carbon Dioxide 25 BUN 19 Creatinine 0.84 Glucose 153 H Calcium 8.4 L Liver Function 10/23/18 Range/Units 04:31 Total Bilirubin 1.5 H (0.3-1.0) mg/dL AST 52 H (13-39) Units/L ALT 64 H (7-52) Units/L Alkaline Phosphatase 88 (34-104) Units/L Albumin 3.1 L (3.5-5.7) g/dL - ABG Interpretation ABG results: PT/INR, D-dimer PT 37.5 Seconds (9.4-12.1) H 10/21/18 10:49 Consult Discharge Plan - Plan Referrals: Lluvia Palomino, [employer] [Primary Care Provider] - (Please contact the office to sc brandonule an appointment within 7 days of discharge. Thank you. ) (2) Abdominal pain Qualifiers: Abdominal location: epigastric Qualified Code(s): R10.13 - Epigastric pain (3) CAD (coronary artery disease) Qualifiers: Coronary Disease-Associated Artery/Lesion type: [place] artery [place] vs. transplanted heart: [place] heart Associated angina: angina presence unspecified Qualified Code(s): I25.10 - Atherosclerotic heart disease of [place] coronary artery without angina pectoris (4) Congestive heart failure Qualifiers: Heart failure type: systolic Heart failure chronicity: acute on chronic Qualified Code(s): I50.23 - Acute on chronic systolic (congestive) heart failure (6) Atrial fibrillation Qualifiers: Atrial fibrillation type: unspecified Qualified Code(s): I48.91 - Unspecified atrial fibrillation (7) Cardiomyopathy Qualifiers: Cardiomyopathy type: ischemic Qualified Code(s): I25.5 - Ischemic card iomyopathy (9) Diabetes mellitus, type 2 Qualifiers: Diabetes mellitus assisted insulin use: without assisted use Diabetes mellitus complication status: without complication Qualified Code(s): E11.9 - Type 2 diabetes mellitus without complications
[2018-10-23] MEDS: *HR* Fondaparinux 2.5 MG/0.5 ML SYRINGE SQ SCH (12:20)
[2018-10-23] MEDS: *HR* Fondaparinux 7.5 MG/0.6 ML SYRINGE SQ SCH (12:21)
--- NOTE | 2018-10-23 13:32 | Oncology Inp Progress Note ---
<Stephen Morris - Last Filed: 10/23/18 16:21> Date of Encounter: 10/23/18 Time of Encounter: 16:20 Oncology: Obj Data - Labs CBC & Chem 7: 10/23/18 04:31 10/23/18 04:31 Consult Discharge Plan - Plan Referrals: Lluvia Palomino, EDITORIAL WRITER [Primary Care Provider] - (Please contact the office to s chedule an appointment within 7 days of discharge. Thank you. ) Inpatient Charges Provider: Dr. Katharine Morris Follow up - Inpatient: [id number] - Attending Attestation I examined this patient and my medical decision-making was reviewed with the Advanced Practice Nurse. I agree with the documented findings, disposition and treatment plan as described except to the extent set forth below. -Plts improved to 47. -HIT Ab positive. BONNY pending. -Continue on Arixtra SQ for now <Galina Prado - Last Filed: 10/23/18 16:31> Date of Encounter: 10/23/18 (1) Thrombocytopenia Current Visit: Yes Status: Acute Assessment and plan: Intermediate suspicion for HIT according to calculation of 4T's score, high clinical suspicion given timing and history His thrombocytopenia is also complicated by recent CHRISTIN placed on 09/29/2018 Differentials other than HIT may include infectious etiology vs. ITP vs. other LDH and indirect bili noted to be elevated above baseline, haptoglobin pending Does not appear to be consistent with TTP given that patient does not have anemia or renal dysfunction Blood smear pending Fibrinogen elevated ruling out DIC process Hepatitis B and C screen nonreactive Retic normal Sung 1+ Plan: HIT PF4 IgG-continue arixtra until PF4 resulted and platelet count recovers, likely plan to resume eliquis at discharge Discussed need of urgency for HIT PF4 results with lab-they will be notified with results by noon on 10/23 Serotonin release assay-pending Blood smear appears benign Maintain high index for suspected thrombotic events Haptoglobin pending Cardiology on board, appreciate recommendations, recommend continuing DAP-on ASA and Plavix Currently no s/s bleeding, continue to monitor B12/folate supplements started Oncology: Subj Interval history: Mr. Lambert is resting comfortably. He denies pain currently. He does report another episode of epigastric like pain earlier this morning that was relieved w ith oxycodone. He denies chest pain or SOB currently. No abdominal pain, bowel/urinary complaint, lower extremity pain, edema or erythema. He does note some continued pedal edema. He denies s/s bleeding. - Constitutional General appearance: cooperative, no acute distress, no febrile - Head Head exam: Present: atraumatic - ENT ENT exam: Present: mucous membranes moist, normal oropharynx - Respiratory Respiratory exam: Present: CTAB. Absent: respiratory distress - Cardiovascular Cardiovascular exam: Present: irregular rhythm - GI/Abdominal GI/Abdominal exam: Present: normal bowel sounds, soft. Absent: tenderness - Extremities Exam Extremities exam: Present: pedal edema. Absent: calf tenderness Additional comments: BLE chronic skin changes noted secondary to vascular changes - Neurological Exam Neurological exam: Present: alert, oriented X3, no focal deficits, strengths equal and symetr throughout - Psychiatric Psychiatric exam: Present: normal affect, normal mood - Skin Skin exam: Present: dry, intact, normal color, warm Oncology: Obj Data - Labs CBC & Chem 7: 10/23/18 04:31 10/23/18 04:31 Inpatient Charges Provider: Dr. Katharine Morris
[2018-10-24] MEDS: Pantoprazole 40 MG VIAL IVP SCH ×2 (05:12→15:59)
[2018-10-24] MEDS: Furosemide 40 MG/4 ML VIAL IVP SCH (08:50)
[2018-10-24] MEDS: Folic Acid 1 MG TABLET PO SCH (08:51)
[2018-10-24] MEDS: Gabapentin 300 MG CAPSULE PO SCH ×4 (08:51→20:10)
[2018-10-24] MEDS: Diltiazem CD (24hr) 120 MG CAPSULE PO SCH (08:51)
[2018-10-24] MEDS: Isosorbide MONOnitrate (24 HR) 60 MG TAB.ER.24H PO SCH (08:51)
[2018-10-24] MEDS: SACUBITRIL/VALSARTAN 24/26 MG TABLET PO SCH (08:51)
[2018-10-24] MEDS: Aspirin 81 MG TAB.CHEW PO SCH (08:51)
[2018-10-24] MEDS: Cyanocobalamin (B-12) 1,000 MCG TABLET PO SCH (08:51)
[2018-10-24] MEDS: Metoprolol XL (24 HR) Succ 50 MG TAB.ER.24H PO SCH (09:00)
[2018-10-24] MEDS: OXYCODONE Oral CONC 10 MG/0.5 ML ORAL.SYG SL PRN ×2 (09:00→20:10)
[2018-10-24 09:07] LABS: Basophils % 0.4 %; Eosinophils # 0.2 K/mcL (0.0-0.6); Eosinophils % 1.9 %; Hematocrit 42.7 % (37.5-50.1); Hemoglobin 13.6 g/dL (12.9-16.9); Immature Granulocytes % 0.6 % (0-4); Lymphocytes # 0.8 K/mcL (0.6-4.6); Lymphocytes % 8.1 %; Mean Corpuscular HGB Conc 31.9 g/dL (31.6-35.5); Mean Platelet Volume 13.3 fL (9.4-12.4); Monocytes # 0.9 K/mcL (0.0-1.3); Monocytes % 8.5 %; Red Blood Count 4.69 M/mcL (4.19-5.50); Red Cell Distribution Width 14.2 % (11.5-14.5); Segmented Neutrophils % 80.5 %
[2018-10-24 09:08] LABS: Neutrophils # 8.1 K/mcL (1.6-8.9); Platelet Count 57 K/mcL (140-400)
[2018-10-24 09:12] LABS: BUN/Creatinine Ratio 27 (6-26); Bilirubin,Direct 0.6 mg/dL (0.0-0.2); Blood Urea Nitrogen 19 mg/dL (8-23); Calcium 8.3 mg/dL (8.6-10.3); Carbon Dioxide 26 mEq/L (23-29); Chloride 100 mEq/L (98-107); Glucose 147 mg/dL (70-105); Lactate Dehydrogenase 279 Units/L (140-271); Magnesium 2.1 mg/dL (1.6-2.6); Osmolality,Calculated 283 (280-300); Potassium 4.6 mEq/L (3.5-5.1); Sodium 134 mEq/L (136-145); eGFR For Non-African Americans > 60 (> 60)
[2018-10-24 09:18] LABS: Bilirubin,Indirect 1.2 mg/dL (0.0-1.2); Bilirubin,Total 1.8 mg/dL (0.3-1.0)
[2018-10-24 09:47] LABS: INR 1.8; Prothrombin Time 20.6 Seconds (9.4-12.1)
[2018-10-24 09:49] LABS: Activated Partial Thrombo Time 76.2 Seconds (26.0-36.0)
--- NOTE | 2018-10-24 10:21 | Internal Med Progress Note ---
Hospitalist Progress Note - Encounter Date of Encounter: 10/24/18 Time of Encounter: 10:09 - Exam Vitals: Temp Pulse Resp BP Pulse Ox 98.3 F 94 16 131/79 97 10/24/18 07:15 10/24/18 07:15 10/24/18 07:15 10/24/18 07:15 10/24/18 07:15 Exam: Gen: Alert, awake, Oriented to time,place and person Chest: Diminished breath sounds B/L, mild wheezing, No crackles, No rales Heart: S1S2+ Afib, No murmurs Abd: Soft, Mild discomfort in epigastric region, BS +, No organomegaly Ext: Trace edema, pulses are palpable, No calf tenderness Neuro : Benign findings Skin: No rash. - Assessment and Plan (1) Heparin induced thrombocytopenia Current Visit: Yes Status: Acute (2) JOSE (obstructive sleep apnea) Current Visit: Yes Status: Suspected (3) Diabetes mellitus, type 2 Current Visit: Yes Status: Chronic (4) Abnormal liver enzymes Current Visit: No Status: Chronic (5) Atrial fibrillation Current Visit: Yes Status: Chronic (6) Congestive heart failure Current Visit: Yes Status: Acute (7) CAD (coronary artery disease) Current Visit: Yes Status: Chronic (8) Abdominal pain Current Visit: Yes Status: Acute (9) Pulmonary hypertension Current Visit: Yes Status: Chronic (10) Elevated LFTs Current Visit: Yes Status: Acute (11) BRBPR (bright red blood per rectum) Current Visit: Yes Status: Acute - Time Spent with Patient Total time spent is greater than 50% in coordination of care (as documented) at patient's floor/unit and/or counseling patient: Greater than 35 minutes Plan of Care Discussed with: patient Internal Medicine: Result - Labs CBC & Chem 7: 10/24/18 08:18 10/24/18 08:18 Labs: Short CBC 10/24/18 Range/Units 08:18 WBC 10.1 (4.3-11.1) K/mcL Hgb 13.6 (12.9-16.9) g/dL Hct 42.7 (37.5-50.1) % Plt Count 57 L (140-400) K/mcL Neutrophils # 8.1 (1.6-8.9) K/mcL BMP 10/24/18 08:18 Sodium 134 L Potassium 4.6 Chloride 100 Carbon Dioxide 26 BUN 19 Creatinine 0.71 Glucose 147 H Calcium 8.3 L Liver Function 10/24/18 Range/Units 08:18 Total Bilirubin 1.8 H (0.3-1.0) mg/dL Direct Bilirubin 0.6 H (0.0-0.2) mg/dL - ABG Interpretation ABG results: PT/INR, D-dimer PT 20.6 Seconds (9.4-12.1) H 10/24/18 09:28 Consult Discharge Plan - Plan Referrals: Lluvia Palomino, BOAT MECHANIC [Primary Care Provider] - (Please contact the office to rosie rios an appointment within 7 days of discharge. Thank you. ) (3) Diabetes mellitus, type 2 Qualifiers: Diabetes mellitus intermediate card tender insulin use: without intermediate card tender use Diabetes mellitus complication status: without complication Qualified Code(s): E11.9 - Type 2 diabetes mellitus without complications (5) Atrial fibrillation Qualifiers: Atrial fibrillation type: unspecified Qualified Code(s): I48.91 - Unspecified atrial fibrillation (6) Congestive heart failure Qualifiers: Heart failure type: systolic Heart failure chronicity: acute on chronic Qualified Code(s): I50.23 - Acute on chronic systolic (congestive) heart failure (7) CAD (coronary artery disease) Qualifiers: Coronary Disease-Associated Artery/Lesion type: [place] artery [place] vs. transplanted heart: [place] heart Associated angina: angina presence unspecified Qualified Code(s): I25.10 - Atherosclerotic heart disease of [place] coronary artery without angina pectoris (8) Abdominal pain Qualifiers: Abdominal location: epigastric Qualified Code(s): R10.13 - Epigastric pain
--- NOTE | 2018-10-24 11:01 | Oncology Inp Progress Note ---
<Stephen Morris - Last Filed: 10/24/18 17:12> Date of Encounter: 10/24/18 Time of Encounter: 17:12 Oncology: Obj Data - Labs CBC & Chem 7: 10/24/18 08:18 10/24/18 08:18 Consult Discharge Plan - Plan Referrals: Lluvia Palomino, [employer]NAGER [Primary Care Provider] - (Please contact the office to s chedule an appointment within 7 days of discharge. Thank you. ) Inpatient Charges Provider: Dr. Katharine Morris Follow up - Inpatient: [id number] - Attending Attestation I examined this patient and my medical decision-making was reviewed with the Advanced Practice Nurse. I agree with the documented findings, disposition and treatment plan as described except to the extent set forth below. -Plts 57 this am. Continue on Arixtra 10 mg SQ until plts > 150,000. -Once platelets > 150,000 okay to transition back to Eliquis. -Patient should be on Arixtra for approximately 7 days prior to transition. 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 OD 2.845 and 4T's score intermediate risk (confirms diagnosis even without serotonin release assay) His thrombocytopenia is also complicated by recent CHRISTIN placed on 09/29/2018 LDH and indirect bili down trending Haptoglobin pending Plan: Serotonin release assay-pending Continue Arixtra Platelet count improving to 54 today, continue to monitor He may transition to Eliquis once platelet count >150,000 If the initial parenteral anticoagulant is used for less than seven days and a switch to apixaban is planned, the initial apixaban dose should be 10 mg twice daily until a total of seven days of combined therapy has passed Heparin added to allergy Discussed with patient that he cannot receive any form of heparin products (He may in the future qualify for heparin re-challenge, this would only be in the case that his OD would decrease to an acceptable level and determined with discussion with motion picture cameraman expert in this area) Continue ASA and Plavix-Currently no s/s bleeding, continue to monitor B12/folate supplements started Check BLE venous doppler We must maintain a high suspicion of thrombus (arterial and venous) in this patient Discussed s/s of both venous and arterial thrombus with patient and of which to be on high suspicion for (2) Prolonged PTT Current Visit: Yes Status: Acute Assessment and plan: Prolonged PT/INR/PTT noted on admission Prolongation making argatroban gtt difficult to titrate and was ultimately stopped with the patient then starting arixtra Etiology of prolonged PT/INR/PTT unclear, concern for underlying congestive hepatopathy (noted on liver US) likely playing role Coags now down trending Hepatitis panel negative Plan: Check PT/PTT inhibitor assay Bilirubin down trending Oncology: Subj Interval history: Mr. Lambert is resting in bed. His is at bedside. NO acute events noted overnight. Denies s/s bleeding. Patients BLE edema appears to be increasing, patient does endorse feeling of increased edema. He denies calf pain, no erythema noted. Continues to report epigastric pain that is worse in the morning and relieved by pain medication. Currently pain free. He denies chest pain, pain with breathing or SOB. NO headache, dizziness, visual changes, focal weakness. - Constitutional General appearance: cooperative, no acute distress, no febrile - Head Head exam: Present: atraumatic - ENT ENT exam: Present: mucous membranes moist, normal oropharynx - Respiratory Respiratory exam: Present: CTAB. Absent: respiratory distress - Cardiovascular Cardiovascular exam: Present: irregular rhythm - GI/Abdominal GI/Abdominal exam: Present: normal bowel sounds, soft. Absent: tenderness - Extremities Exam Extremities exam: Absent: calf tenderness Additional comments: BLE edema, pitting 1+ Chronic skin changes noted to BLE - Neurological Exam Neurological exam: Present: alert, oriented X3, no focal deficits, strengths equal and symetr throughout - Psychiatric Psychiatric exam: Present: normal affect, normal mood - Skin Skin exam: Present: dry, intact, normal color, warm Oncology: Obj Data - Labs CBC & Chem 7: 10/24/18 08:18 10/24/18 08:18 Inpatient Charges Provider: Dr. Katharine Morris
[2018-10-24] MEDS: *HR* Fondaparinux 7.5 MG/0.6 ML SYRINGE SQ SCH (12:31)
[2018-10-24] MEDS: *HR* Fondaparinux 2.5 MG/0.5 ML SYRINGE SQ SCH (12:32)
--- NOTE | 2018-10-24 13:51 | Internal Med Progress Note ---
Hospitalist Progress Note - Encounter Date of Encounter: 10/24/18 Time of Encounter: 12:00 - Subjective Interval History: Mr. Lambert is a 68 year old male patient with a history of coronary artery disease status post recent stent on 09/29/2018 in the mLAD, systolic congestive heart failure, Ischemic cardiomyopathy, atrial fibrillation on anticoagulation with Eliquis who presented to the ER with complaints of acute epigastric pain that has been going on for past couple of days associated with pain going down into his abdomen along with diarrhea. He also noticed some blood on toilet paper but normal stool noticed. Earlier this month he had stent placed to mid LAD. He had type B dissection with proximal edge of the first place stent. As such a secondary stent was deployed proximally. Patient has been on dual antiplatelet therapy since then. He presented to the ER with chest pain again one week back during which time he was placed on IV heparin. He was eventually discharged home on Imdur. Patient has been on Eliquis for anticoagulation since his initial admission earlier this month. Now his platelets were at 45 with concerning for heparin induced thrombocytopenia. He was admitted in the hospital and held his anti coag Eliquis and started him on Arixtra SQ inj. He denied any CP. His epigastric abd pain also better now. Denied any more diarrhea / blood in his stool. Overall feels better. - Exam Vitals: Temp Pulse Resp BP Pulse Ox 98.9 F 95 16 116/78 93 10/24/18 11:15 10/24/18 11:15 10/24/18 11:15 10/24/18 11:15 10/24/18 11:15 Exam: Gen: Alert, awake, Oriented to time,place and person Chest: Diminished breath sounds B/L, mild wheezing, No crackles, No rales Heart: S1S2+ Afib, No murmurs Abd: Soft, NT, BS +, No organomegaly Ext: 1+ edema, pulses are palpable, No calf tenderness Neuro : Benign findings Skin: No rash. - Assessment and Plan (1) Heparin induced thrombocytopenia Current Visit: Yes Status: Acute Assessment and Plan: Platelets started improving slowly. Now @ 57 Heme Onc on board Reviewed lab work C4 level low @ 9, Hep panel - non reactive LDH-311, Fibrinogen elevated @ 572 HIT came back as positive appreciate Heme Onc recommendations cont holding Eliquis and avoid heparin inj Cont Arixtra SQ inj for now (2) Abdominal pain Current Visit: Yes Status: Acute Assessment and Plan: Epigastric abd pain could be viral gastroenteritis also concerning for ischemic CP. Card on board cont PPI and G.I cocktail Pt prefers to have EGD and Colonoscopy as an out pt (3) CAD (coronary artery disease) Current Visit: Yes Status: Chronic Assessment and Plan: Patient with recent coronary stent. On dual antiplatelet therapy. However patient does have low platelets. Concerning for thrombotic events with HIT Consulted cardiology to evaluate patient to see if he needs any medications to be changed. For now continue aspirin and Plavix. Patient has mild troponin elevation mostly due to demand ischemia and chronic too Card recommend to continue current care (4) Congestive heart failure Current Visit: Yes Status: Acute Assessment and Plan: He does have mild CHF exacerbation Cont IV lasix 40mg BID His SOB better now he is off the O2 Continue Lasix, BB, ASA, Statin and entresto. Monitor input and output (5) Elevated LFTs Current Visit: Yes Status: Acute Assessment and Plan: Chronically elevated due to hepatic congestion with Rt heart failure cont close monitoring (6) Atrial fibrillation Current Visit: Yes Status: Chronic Assessment and Plan: Chronic Afib Rate well controlled now with Metoprolol XL and new med Cardizem CD 120mg Held Eliquis for anti coag due to HIT Switched to Arixtra inj (7) Cardiomyopathy Current Visit: Yes Status: Chronic Assessment and Plan: Management as above (8) Hematochezia Current Visit: Yes Status: Acute Assessment and Plan: Denied any blood in stool he noticed some bright red blood on toilet paper concerning for hemorrhoidal bleeding His stool hemoccult is negative Consulted GI for further eval on PPI BID (9) Diabetes mellitus, type 2 Current Visit: Yes Status: Chronic Assessment and Plan: ADA diet on ISS (10) JOSE (obstructive sleep apnea) Current Visit: Yes Status: Suspected Assessment and Plan: Strongly suspect that the patient has underlying obstructive sleep apnea. CT of the chest also suggest pulmonary hypertension. Pulm consulted Recommend out pt sleepy study Also will do ambulating pulse oxy - Time Spent with Patient Total time spent is greater than 50% in coordination of care (as documented) at patient's floor/unit and/or counseling patient: Internal Medicine: Result - Labs CBC & Chem 7: 10/24/18 08:18 10/24/18 08:18 Labs: Short CBC 04/25/19 Range/Units 08:18 WBC 10.1 (4.3-11.1) K/mcL Hgb 13.6 (12.9-16.9) g/dL Hct 42.7 (37.5-50.1) % Plt Count 57 L (140-400) K/mcL Neutrophils # 8.1 (1.6-8.9) K/mcL BMP 10/24/18 08:18 Sodium 134 L Potassium 4.6 Chloride 100 Carbon Dioxide 26 BUN 19 Creatinine 0.71 Glucose 147 H Calcium 8.3 L Liver Function 10/24/18 Range/Units 08:18 Total Bilirubin 1.8 H (0.3-1.0) mg/dL Direct Bilirubin 0.6 H (0.0-0.2) mg/dL - ABG Interpretation ABG results: PT/INR, D-dimer PT 20.6 Seconds (9.4-12.1) H 10/24/18 09:28 Consult Discharge Plan - Plan Referrals: Lluvia Palomino, AIRLINE FLIGHT ATTENDANT [Primary Care Provider] - (Please contact the office to schedule an appointment within 7 days of discharge. Thank you. ) (2) Abdominal pain Qualifiers: Abdominal location: epigastric Qualified Code(s): R10.13 - Epigastric pain (3) CAD (coronary artery disease) Qualifiers: Coronary Disease-Associated Artery/Lesion type: [place] artery [place] vs. transplanted heart: [place] heart Associated angina: angina presence unspecified Qualified Code(s): I25.10 - Atherosclerotic heart disease of [place] coronary artery without angina pectoris (4) Congestive heart failure Qualifiers: Heart failure type: systolic Heart failure chronicity: acute on chronic Qualified Code(s): I50.23 - Acute on chronic systolic (congestive) heart failure (6) Atrial fibrillation Qualifiers: Atrial fibrillation type: unspecified Qualified Code(s): I48.91 - Unspecified atrial fibrillation (7) Cardiomyopathy Qualifiers: Cardiomyopathy type: ischemic Qualified Code(s): I25.5 - Ischemic cardiomyopathy (9) Diabetes mellitus, type 2 Qualifiers: Diabetes mellitus [employer] insulin use: without [employer] use Diabetes mellitus complication status: without complication Qualified Code(s): E11.9 - Type 2 diabetes mellitus without complications
[2018-10-24] MEDS: Furosemide 40 MG TABLET PO SCH (15:59)
[2018-10-25] MEDS: Pantoprazole 40 MG VIAL IVP SCH ×2 (05:18→16:50)
[2018-10-25 05:57] LABS: INR 1.8; Prothrombin Time 20.1 Seconds (9.4-12.1)
[2018-10-25 05:59] LABS: Activated Partial Thrombo Time 65.7 Seconds (26.0-36.0)
--- NOTE | 2018-10-25 07:46 | Anesthesia Evaluation PreOp ---
Date of Encounter: 10/25/18 - Past History Planned Operation: EGD Cardiac History: CHF, HTN, Arrhythmia (H/O A-Fib), Cardiac Stent (stent x 1 in 09/29/2018), Other (ischemic cardiomyopathy---on eliquis but plavix given 10/24/2018 at 0851) Pulmonary History: JOSE Dx Other Medical History: Diabetes Type II, GERD Anesthesia History: Past Anesthesia Alcohol Use: none Drug use: none Medications and Allergies Glucosamine HCl/Chondr Foy A Na [[facility] Glucosamine-Chondr Tablet] 1 tab PO DAILY 03/27/17 [History] Omeprazole [PriLOSEC] 40 mg PO DAILY 03/27/17 [History] Zolpidem [Ambien] 10 mg PO HS PRN 03/27/17 [History] Acetaminophen [Tylenol Arthritis] 650 mg PO Q48H 09/26/18 [History] Gabapentin [Neurontin] 300 mg PO QID 09/26/18 [History] Apixaban [Eliquis] 5 mg PO BID #60 tablet 09/27/18 [Rx] Aspirin 81 mg PO DAILY #30 tab.chew 10/04/18 [Rx] Atorvastatin [Lipitor] 40 mg PO HS #30 tablet 10/04/18 [Rx] Clopidogrel [Plavix] 75 mg PO DAILY #30 tablet 10/04/18 [Rx] Furosemide [Lasix] 40 mg PO BID #120 tablet 10/04/18 [Rx] Nitroglycerin 0.4 mg SL Q5MIN PRN #30 tab.subl 10/04/18 [Rx] Potassium Chloride 40 meq PO DAILY #60 tab.er.prt 10/04/18 [Rx] Metoprolol Succinate 200 mg PO DAILY 10/14/18 [History] Sacubitril/Valsartan 24/26 mg [Entresto 24 mg-26 mg Tablet] 1 each PO DAILY 10/14/18 [History] Tramadol HCl [Ultram] 50 mg PO BID PRN 10/14/18 [History] Isosorbide MONOnitrate (24 HR) [Imdur] 30 mg PO DAILY #30 tab.er.24h 10/16/18 [Rx] Allergy/AdvReac Type Severity Reaction Status Date / Time heparin AdvReac See Verified 10/24/18 08:33 Comments Heparin Analogues AdvReac See Verified 10/24/18 08:33 Comments - Meds/Allergy Pre-op Review Medications Reviewed: Yes Allergies Reviewed: Yes Beta Blockers on Current Med List: Yes If Beta Blockers taken, Date/Time (Last Dose taken): 10/24/2018 at 0900 Anesthesia Results - Labs 10/24/18 08:18 10/24/18 08:18 - Imaging EKG: report reviewed (10/20/2018 Atrial fibrillation Nonspecific intraventricular conduction delay Anterolateral infarct, old Low voltage limb leads) Additional studies: 10/14/2018 Echo Impressions: LVEF 45-50%. Low normal to mildly reduced LV systolic function. Severe concentric left ventricular hypertrophy. Mild global left ventricular systolic dysfunction. 09/30/2018 LEFT HEART CATH IV Doppler BLD Flow 1st Vessel Stent w/ PTCA Single Major Vessel Impressions: There is severe one vessel coronary artery disease. Patient had successful PTCA/Drug-Eluting Stent placement in the mid LAD. FFR Measurement: 0.76 Type B dissection in the proximal edge of first placed stent hence a second STENT was deployed proximally Recommendations: Optimal medical therapy of patient's disease. Aggressive risk factor modification. Patient being referred for cardiac rehab. 09/29/2018 [facility] Impressions: There is severe one vessel coronary artery disease. Patient had successful PTCA/Drug-Eluting Stent placement in the mid LAD. FFR Measurement: 0.76 Type B dissection in the proximal edge of first placed stent hence a second STENT was deployed proximally 09/27/2018 Echo Impressions: LVEF 40-45%. Global LV systolic dysfunction. Moderate-severe concentric left ventricular hypertrophy. Indeterminate diastolic function. RV is mildly dilated with mild to moderate systolic dysfunction. Bi-atrial enlargement. Mild-moderate mitral regurgitation. Mild tricuspid regurgitation. Mild pulmonic regurgitation. No evidence of PFO with agitated saline contrast. Bubbles observed in the LA/LV after approximately 6 cardiac cycles suggests the presence of pulmonary shunting. Unable to estimate RVSP due to suboptimal TR signal. IVC is dilated with estimate RA pressure 20 mmHg. No prior echo for comparison. Anesthesia Exam Vital Signs/O2 Sat, Most Current Temp Pulse Resp BP Pulse Ox 99.5 F 84 27 106/69 98 10/25/18 02:53 10/25/18 02:53 10/25/18 04:45 10/25/18 02:53 10/25/18 04:45 Height: 6' Weight: 265 lbs NPO (# of Hours): 8 Pain Scale: 0 Pain Scale Used: Numeric (1 - 10) Anesthesia Assess/Plan ASA Score: 4 Level of consciousness: Cooperative, Oriented, Tranquil Anesthetic Plan: MAC Monitoring Plan: Standard Monitors
[2018-10-25] MEDS: SACUBITRIL/VALSARTAN 24/26 MG TABLET PO SCH (09:33)
[2018-10-25] MEDS: Folic Acid 1 MG TABLET PO SCH (09:33)
[2018-10-25] MEDS: Cyanocobalamin (B-12) 1,000 MCG TABLET PO SCH (09:33)
[2018-10-25] MEDS: Metoprolol XL (24 HR) Succ 50 MG TAB.ER.24H PO SCH (09:33)
[2018-10-25] MEDS: Isosorbide MONOnitrate (24 HR) 60 MG TAB.ER.24H PO SCH (09:34)
[2018-10-25] MEDS: Aspirin 81 MG TAB.CHEW PO SCH (09:34)
[2018-10-25] MEDS: Diltiazem CD (24hr) 120 MG CAPSULE PO SCH (09:35)
[2018-10-25] MEDS: Gabapentin 300 MG CAPSULE PO SCH ×4 (09:35→19:20)
[2018-10-25] MEDS: Furosemide 40 MG TABLET PO SCH ×2 (09:35→16:50)
[2018-10-25] MEDS: OXYCODONE Oral CONC 10 MG/0.5 ML ORAL.SYG SL PRN ×2 (09:37→19:20)
[2018-10-25 10:28] LABS: Eosinophils % 1.5 %
[2018-10-25 10:30] LABS: Basophils % 0.4 %; Eosinophils # 0.2 K/mcL (0.0-0.6); Hematocrit 38.5 % (37.5-50.1); Hemoglobin 12.5 g/dL (12.9-16.9); Immature Granulocytes % 0.7 % (0-4); Immature Platelets 8.7 % (1.1-6.1); Lymphocytes # 0.6 K/mcL (0.6-4.6); Lymphocytes % 5.1 %; Mean Corpuscular HGB Conc 32.5 g/dL (31.6-35.5); Mean Corpuscular Hemoglobin 29.5 pg (28.0-33.3); Mean Corpuscular Volume 90.8 fL (83.0-100.0); Mean Platelet Volume 11.7 fL (9.4-12.4); Monocytes # 0.9 K/mcL (0.0-1.3); Monocytes % 7.6 %; Neutrophils # 9.7 K/mcL (1.6-8.9); Red Blood Count 4.24 M/mcL (4.19-5.50); Red Cell Distribution Width 14.1 % (11.5-14.5); Segmented Neutrophils % 84.7 %
[2018-10-25 10:33] LABS: Basophils # 0.1 K/mcL (0.0-0.2)
[2018-10-25 10:34] LABS: Platelet Count 62 K/mcL (140-400)
--- NOTE | 2018-10-25 10:36 | Oncology Inp Progress Note ---
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.845 and 4T's score intermediate risk (confirms diagnosis even without serotonin release assay) His thrombocytopenia is also complicated by recent HCRISTIN placed on 09/29/2018 LDH and indirect bili down trending Haptoglobin pending Plan: Serotonin release assay-pending Continue Arixtra Platelet count improving to 54 today, continue to monitor He may transition to Eliquis once platelet count >150,000 If the initial parenteral anticoagulant is used for less than seven days and a switch to apixaban is planned, the initial apixaban dose should be 10 mg twice daily until a total of seven days of combined therapy has passed Heparin added to allergy Discussed with patient that he cannot receive any form of heparin products (He may in the future qualify for heparin re-challenge, this would only be in the case that his OD would decrease to an acceptable level and determined with discussion with fisheries diver expert in this area) Continue ASA and Plavix-Currently no s/s bleeding, continue to monitor B12/folate supplements started Check BLE venous doppler: final report pending 10/25/18 We must maintain a high suspicion of thrombus (arterial and venous) in this patient Discussed s/s of both venous and arterial thrombus with patient and of which to be on high suspicion for (2) Prolonged PTT Current Visit: Yes Status: Acute Assessment and plan: (2) Prolonged PTT Current Visit: Yes Status: Acute Assessment and plan: Prolonged PT/INR/PTT noted on admission Prolongation making argatroban gtt difficult to titrate and was ultimately stopped with the patient then starting arixtra Etiology of prolonged PT/INR/PTT unclear, concern for underlying congestive hepatopathy (noted on liver US) likely playing role Coags now down trending Hepatitis panel negative Plan: Check PT/PTT inhibitor assay Bilirubin down trending Oncology: Subj Interval history: Andre is ambulating from the bathroom to the bed, noticeably short of breath with exertion. His is at bedside and notes that this is his normal due to bilateral foot drop and recent stent placement. He denies use of oxygen at home and currently on RA with oxygen saturations > at rest. He notes ongoing epigastric pain since admission. Andre rates his pain as 5 out of 10. He is receiving Protonix IV q 12 hours and oxycodone 5 mg SL for pain. He used a GI cocktail once without relief and notes that the oxycodone works the best. Discussed that labs were not resulted today and patient confirms that no one has drawn them yet this morning. Discussed that will discuss with nursing and hospitalist so that he will only get one lab draw, if possible. Discussed plan to continue Arixtra until platelet count > 150,000 and then can resume Eliquis. Patient verbalized understanding. Andre and his note concern about GI procedure that was planned for today. He refused the bowel prep and procedure. Procedure has been placed on hold at this time. - Constitutional General appearance: morbidly obese - Head Head exam: Present: normal inspection, normocephalic - Respiratory Respiratory exam: Present: decreased breath sounds - Cardiovascular Cardiovascular exam: Present: irregular rhythm, tachycardia Additional comments: HR 90-100s, on telemetry - GI/Abdominal GI/Abdominal exam: Present: normal bowel sounds, soft. Absent: tenderness - Extremities Exam Extremities exam: Present: normal capillary refill Additional comments: non-pitting edema noted to ankles - Neurological Exam Neurological exam: Present: alert, oriented X3. Absent: facial droop, speech deficit - Psychiatric Psychiatric exam: Present: agitated - Skin Skin exam: Present: dry, pallor, warm Additional comments: radha discoloration to BLE Oncology: Obj Data - Labs CBC & Chem 7: 10/24/18 08:18 10/24/18 08:18 Consult Discharge Plan - Plan Referrals: Lluvia Palomino, SILVERWARE BUFFER [Primary Care Provider] - (Please contact the office to schedule an appointment within 7 days of discharge. Thank you. ) Inpatient Charges Provider: Dr. Yordan Ramirez <Raffi Ramirez - Last Filed: 10/25/18 19:01> Date of Encounter: 10/25/18 Oncology: Obj Data - Labs CBC & Chem 7: 10/25/18 10:13 10/24/18 08:18 Inpatient Charges Provider: Dr. Yordan Ramirez Follow up - Inpatient: [id number] - Attending Attestation I examined this patient and my medical decision-making was reviewed with the Advanced Practice Nurse. I agree with the documented findings, disposition and treatment plan as described except to the extent set forth below. Acute onset thrombocytopenia clinically concerning for HIT. JESSENIA positive and BONNY pending. Continue arixtra with transition back to eliquis once platelet count >150,000. Encouraged ambulation. Exam with lower extremity edema/chronic venous stasis.
[2018-10-25] MEDS: *HR* Fondaparinux 2.5 MG/0.5 ML SYRINGE SQ SCH (12:13)
[2018-10-25] MEDS: *HR* Fondaparinux 7.5 MG/0.6 ML SYRINGE SQ SCH (12:13)
[2018-10-26] MEDS: Pantoprazole 40 MG VIAL IVP SCH ×2 (07:27→17:40)
[2018-10-26 07:38] LABS: Alanine Aminotransferase 72 Units/L (7-52); Albumin 3.1 g/dL (3.5-5.7); Albumin/Globulin Ratio 1.1 (1.1-2.2); Alkaline Phosphatase 126 Units/L (34-104); Aspartate Amino Transferase 54 Units/L (13-39); BUN/Creatinine Ratio 23 (6-26); Bilirubin,Total 1.7 mg/dL (0.3-1.0); Blood Urea Nitrogen 17 mg/dL (8-23); Calcium 8.6 mg/dL (8.6-10.3); Carbon Dioxide 27 mEq/L (23-29); Chloride 99 mEq/L (98-107); Globulin 2.8 g/dL (2.4-3.5); Glucose 187 mg/dL (70-105); Magnesium 2.1 mg/dL (1.6-2.6); Osmolality,Calculated 284 (280-300); Potassium 4.9 mEq/L (3.5-5.1); Sodium 134 mEq/L (136-145); Total Protein 5.9 g/dL (6.4-8.9); eGFR For Non-African Americans > 60 (> 60)
[2018-10-26 08:10] LABS: Basophils # 0.1 K/mcL (0.0-0.2); Basophils % 0.5 %; Eosinophils # 0.2 K/mcL (0.0-0.6); Eosinophils % 2.1 %; Hematocrit 41.2 % (37.5-50.1); Hemoglobin 12.9 g/dL (12.9-16.9); Immature Platelets 12.9 % (1.1-6.1); Lymphocytes % 9.5 %; Mean Corpuscular HGB Conc 31.3 g/dL (31.6-35.5); Mean Corpuscular Hemoglobin 28.9 pg (28.0-33.3); Mean Corpuscular Volume 92.2 fL (83.0-100.0); Mean Platelet Volume 13.2 fL (9.4-12.4); Monocytes # 0.8 K/mcL (0.0-1.3); Monocytes % 7.8 %; Neutrophils # 8.5 K/mcL (1.6-8.9); Red Blood Count 4.47 M/mcL (4.19-5.50); Red Cell Distribution Width 14.3 % (11.5-14.5); Segmented Neutrophils % 79.1 %
[2018-10-26 08:45] LABS: Platelet Count 82 K/mcL (140-400)
[2018-10-26] MEDS: SACUBITRIL/VALSARTAN 24/26 MG TABLET PO SCH (09:03)
[2018-10-26] MEDS: Metoprolol XL (24 HR) Succ 50 MG TAB.ER.24H PO SCH (09:03)
[2018-10-26] MEDS: Folic Acid 1 MG TABLET PO SCH (09:03)
[2018-10-26] MEDS: Diltiazem CD (24hr) 120 MG CAPSULE PO SCH (09:03)
[2018-10-26] MEDS: Aspirin 81 MG TAB.CHEW PO SCH (09:03)
[2018-10-26] MEDS: Gabapentin 300 MG CAPSULE PO SCH ×4 (09:03→20:21)
[2018-10-26] MEDS: Isosorbide MONOnitrate (24 HR) 60 MG TAB.ER.24H PO SCH (09:03)
[2018-10-26] MEDS: Furosemide 40 MG TABLET PO SCH ×2 (09:03→17:40)
[2018-10-26] MEDS: Cyanocobalamin (B-12) 1,000 MCG TABLET PO SCH (09:03)
[2018-10-26] MEDS: OXYCODONE Oral CONC 10 MG/0.5 ML ORAL.SYG SL PRN ×2 (09:08→17:48)
--- NOTE | 2018-10-26 09:58 | Internal Med Progress Note ---
Hospitalist Progress Note - Encounter Date of Encounter: 10/26/18 Time of Encounter: 09:52 - Subjective Interval History: She was seen and examined at bedside currently denies any pain or discomfort no active bleeding noted discuss treatment plan with the patient who verbalized understanding - Exam Vitals: Temp Pulse Resp BP Pulse Ox 98.5 F 89 16 109/77 96 10/26/18 07:18 10/26/18 07:18 10/26/18 07:18 10/26/18 07:18 10/26/18 07:18 Exam: Skin: Free of rash and discoloration. Eyes: Sclera is white. There is no discharge from eyes. ENMT: Oral/pharyngeal mucosa is normal in appearance. There is no discharge from nose or ears. Respiratory: Normal breath sounds with no crackles and wheezes bilaterally. CV: Heart is regular with no gallop or murmur. GI: Abdomen is flat and soft with no palpable mass or visceromegaly. : There is no tenderness in patient's flanks bilaterally. Neuro exam: He has good strength in upper and lower extremities. He has normal eye movements. Psychiatric: He has normal affect. His thought process is appropriate to the situation. - Assessment and Plan (1) JOSE (obstructive sleep apnea) Current Visit: Yes Status: Suspected Assessment and Plan: Strongly suspect that the patient has underlying obstructive sleep apnea. CT of the chest also suggest pulmonary hypertension. Pulm consulted Recommend out pt sleepy study Also will do ambulating pulse oxy (2) Cardiomyopathy Current Visit: Yes Status: Chronic Assessment and Plan: as above (3) Diabetes mellitus, type 2 Current Visit: Yes Status: Chronic Assessment and Plan: ADA diet on ISS (4) Atrial fibrillation Current Visit: Yes Status: Chronic Assessment and Plan: Chronic Afib Rate well controlled now with Metoprolol XL and new med Cardizem CD 120mg Held Eliquis for anti coag due to HIT Switched to Arixtra inj (5) Congestive heart failure Current Visit: Yes Status: Acute Assessment and Plan: He does have mild CHF exacerbation Cont lasix 40mg PO BID His SOB better now he is off the O2 Continue Lasix, BB, ASA, Statin and entresto. Monitor input and output (6) CAD (coronary artery disease) Current Visit: Yes Status: Chronic Assessment and Plan: Patient with recent coronary stent. On dual antiplatelet therapy. However patient does have low platelets. Concerning for thrombotic events with HIT Consulted cardiology to evaluate patient to see if he needs any medications to be changed. For now continue aspirin and Plavix. Patient has mild troponin elevation mostly due to demand ischemia and chronic too Card recommend to continue current care (7) Heparin induced thrombocytopenia Current Visit: Yes Status: Acute Assessment and Plan: Platelets started improving slowly. Now @ 57 Heme Onc on board Reviewed lab work C4 level low @ 9, Hep panel - non reactive LDH-311, Fibrinogen elevated @ 572 HIT came back as positive appreciate Heme Onc recommendations cont holding Eliquis and avoid heparin inj Cont Arixtra SQ inj for now (8) Abdominal pain Current Visit: Yes Status: Acute Assessment and Plan: Epigastric abd pain could be viral gastroenteritis also concerning for ischemic CP. Card on board cont PPI and G.I cocktail Pt prefers to have EGD and Colonoscopy as an out pt (9) Hematochezia Current Visit: Yes Status: Acute Assessment and Plan: Denied any blood in stool he noticed some bright red blood on toilet paper concerning for hemorrhoidal bleeding His stool hemoccult is negative Consulted GI for further eval on PPI BID (10) Elevated LFTs Current Visit: Yes Status: Acute Assessment and Plan: Chronically elevated due to hepatic congestion with Rt heart failure cont close monitoring - Time Spent with Patient Total time spent is greater than 50% in coordination of care (as documented) at patient's floor/unit and/or counseling patient: Internal Medicine: Result - Labs CBC & Chem 7: 10/26/18 04:00 10/26/18 04:00 Labs: Short CBC 10/25/18 10/26/18 Range/Units 10:13 04:00 WBC 11.4 H 10.7 (4.3-11.1) K/mcL Hgb 12.5 L 12.9 (12.9-16.9) g/dL Hct 38.5 41.2 (37.5-50.1) % Plt Count 62 L 82 L (140-400) K/mcL Neutrophils # 9.7 H 8.5 (1.6-8.9) K/mcL BMP 10/26/18 04:00 Sodium 134 L Potassium 4.9 Chloride 99 Carbon Dioxide 27 BUN 17 Creatinine 0.75 Glucose 187 H Calcium 8.6 Liver Function 10/26/18 Range/Units 04:00 Total Bilirubin 1.7 H (0.3-1.0) mg/dL AST 54 H (13-39) Units/L ALT 72 H (7-52) Units/L Alkaline Phosphatase 126 H (34-104) Units/L Albumin 3.1 L (3.5-5.7) g/dL - ABG Interpretation ABG results: PT/INR, D-dimer PT 20.1 Seconds (9.4-12.1) H 10/25/18 05:08 Consult Discharge Plan - Plan Referrals: Lluvia Palomino, EDUCATION DEAN [Primary Care Provider] - (Please contact the office to schedule an appointment within 7 days of discharge. Thank you. ) (2) Cardiomyopathy Qualifiers: Cardiomyopathy type: ischemic Qualified Code(s): I25.5 - Ischemic cardiomyop athy (3) Diabetes mellitus, type 2 Qualifiers: Diabetes mellitus senior living insulin use: without senior living use Diabetes mellitus complication status: without complication Qualified Code(s): E11.9 - Type 2 diabetes mellitus without complications (4) Atrial fibrillation Qualifiers: Atrial fibrillation type: unspecified Qualified Code(s): I48.91 - Unspecified atrial fibrillation (5) Congestive heart failure Qualifiers: Heart failure type: systolic Heart failure chronicity: acute on chronic Qualified Code(s): I50.23 - Acute on chronic systolic (congestive) heart failure (6) CAD (coronary artery disease) Qualifiers: Coronary Disease-Associated Artery/Lesion type: [place] artery [place] vs. transplanted heart: [place] heart Associated angina: angina presence unspecified Qualified Code(s): I25.10 - Atherosclerotic heart disease of [place] coronary artery without angina pectoris (8) Abdominal pain Qualifiers: Abdominal location: epigastric Qualified Code(s): R10.13 - Epigastric pain
--- NOTE | 2018-10-26 10:10 | Oncology Inp Progress Note ---
Date of Encounter: 10/26/18 Time of Encounter: 10:30 (1) Heparin induced thrombocytopenia Current Visit: Yes Status: Acute Assessment and plan: Platelet count improving. Once platelet count is 150,000, May transition back to Eliquis from fondaparinux and discharge home. Continue current care. Oncology: Subj Interval history: No acute events overnight. Feeling okay. He is currently getting ready to shower. Chronic SOB stable. No new leg swelling. No bruising, petechiae or bleeding. H/[place] [address] today. - Constitutional General appearance: cooperative, no acute distress - Head Head exam: Present: atraumatic, normal inspection, normocephalic - Eye Eye exam: Present: normal appearance, conjuntiva pink, sclera anicteric - ENT ENT exam: Present: mucous membranes moist, normal exam, normal oropharynx - Neck Neck exam: Present: full ROM, normal inspection - Respiratory Respiratory exam: Present: CTAB - Cardiovascular Cardiovascular exam: Present: RRR - GI/Abdominal GI/Abdominal exam: Present: normal bowel sounds, soft - Extremities Exam Extremities exam: Present: normal inspection, pedal edema - Neurological Exam Neurological exam: Present: alert, CN II-XII intact, no focal deficits Oncology: Obj Data - Labs CBC & Chem 7: 10/26/18 04:00 10/26/18 04:00 Consult Discharge Plan - Plan Referrals: Lluvia Palomino, CLIENT SERVICES REPRESENTATIVE [Primary Care Provider] - (Please contact the office to schedule an appointment within 7 days of discharge. Thank you. ) Inpatient Charges Provider: Dr. Yordan Ramirez Follow up - Inpatient: [id number]
[2018-10-26] MEDS: *HR* Fondaparinux 7.5 MG/0.6 ML SYRINGE SQ SCH (12:23)
[2018-10-26] MEDS: *HR* Fondaparinux 2.5 MG/0.5 ML SYRINGE SQ SCH (12:24)
[2018-10-27 03:04] LABS: Basophils % 0.4 %; Eosinophils # 0.2 K/mcL (0.0-0.6); Eosinophils % 1.9 %; Hematocrit 41.4 % (37.5-50.1); Immature Granulocytes % 1.1 % (0-4); Lymphocytes % 9.2 %; Mean Corpuscular HGB Conc 31.4 g/dL (31.6-35.5); Mean Corpuscular Hemoglobin 28.9 pg (28.0-33.3); Mean Platelet Volume 12.2 fL (9.4-12.4); Monocytes % 8.7 %; Neutrophils # 8.9 K/mcL (1.6-8.9); Platelet Count 109 K/mcL (140-400); Red Cell Distribution Width 14.4 % (11.5-14.5); Segmented Neutrophils % 78.7 %
[2018-10-27 03:42] LABS: BUN/Creatinine Ratio 24 (6-26); Blood Urea Nitrogen 20 mg/dL (8-23); Calcium 8.6 mg/dL (8.6-10.3); Carbon Dioxide 27 mEq/L (23-29); Chloride 100 mEq/L (98-107); Glucose 163 mg/dL (70-105); Osmolality,Calculated 286 (280-300); Potassium 4.9 mEq/L (3.5-5.1); Sodium 135 mEq/L (136-145); eGFR For Non-African Americans > 60 (> 60)
[2018-10-27] MEDS: Pantoprazole 40 MG VIAL IVP SCH ×2 (05:40→17:07)
[2018-10-27] MEDS: Metoprolol XL (24 HR) Succ 50 MG TAB.ER.24H PO SCH (09:08)
[2018-10-27] MEDS: Aspirin 81 MG TAB.CHEW PO SCH (09:08)
[2018-10-27] MEDS: Folic Acid 1 MG TABLET PO SCH (09:08)
[2018-10-27] MEDS: Gabapentin 300 MG CAPSULE PO SCH ×4 (09:08→19:48)
[2018-10-27] MEDS: Cyanocobalamin (B-12) 1,000 MCG TABLET PO SCH (09:08)
[2018-10-27] MEDS: Isosorbide MONOnitrate (24 HR) 60 MG TAB.ER.24H PO SCH (09:09)
[2018-10-27] MEDS: Furosemide 40 MG TABLET PO SCH ×2 (09:09→17:07)
[2018-10-27] MEDS: SACUBITRIL/VALSARTAN 24/26 MG TABLET PO SCH (09:09)
[2018-10-27] MEDS: Diltiazem CD (24hr) 120 MG CAPSULE PO SCH (09:09)
[2018-10-27] MEDS: OXYCODONE Oral CONC 10 MG/0.5 ML ORAL.SYG SL PRN ×3 (10:07→23:06)
--- NOTE | 2018-10-27 10:32 | Internal Med Progress Note ---
Hospitalist Progress Note - Encounter Date of Encounter: 10/27/18 Time of Encounter: 10:25 - Subjective Interval History: Patient was seen and examined at bedside on the bed complaining of lower back pain-history of chronic back pain. Discussed lab results including platelets which are up to 100,000. Patient will have to be at least 150,000 before he can be transitioned to Eliquis and discharged. Patient verbalized understanding - Exam Vitals: Temp Pulse Resp BP Pulse Ox 98.1 F 97 16 130/87 95 10/27/18 07:19 10/27/18 07:19 10/27/18 07:19 10/27/18 07:19 10/27/18 07:19 Exam: Skin: Free of rash and discoloration. Eyes: Sclera is white. There is no discharge from eyes. ENMT: Oral/pharyngeal mucosa is normal in appearance. There is no discharge f rom nose or ears. Respiratory: Normal breath sounds with no crackles and wheezes bilaterally. CV: Heart is regular with no gallop or murmur. GI: Abdomen is flat and soft with no palpable mass or visceromegaly. : There is no tenderness in patient's flanks bilaterally. Neuro exam: He has good strength in upper and lower extremities. He has normal eye movements. Psychiatric: He has normal affect. His thought process is appropriate to the situation. - Assessment and Plan (1) JOSE (obstructive sleep apnea) Current Visit: Yes Status: Suspected Assessment and Plan: Strongly suspect that the patient has underlying obstructive sleep apnea. CT of the chest also suggest pulmonary hypertension. 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 Monitor input and output (6) CAD (coronary artery disease) Current Visit: Yes Status: Chronic Assessment and Plan: Patient with recent coronary stent. On dual antiplatelet therapy. However patient does have low platelets. Concerning for thrombotic events with HIT Consulted cardiology to evaluate patient to see if he needs any medications to be changed. For now continue aspirin and Plavix. Patient has mild troponin elevation mostly due to demand ischemia and chronic t oo Card recommend to continue current care (7) Heparin induced thrombocytopenia Current Visit: Yes Status: Acute Assessment and Plan: Platelets started improving slowly. Now 109,000 he will have to be 150,000 before he can be transitioned to Eliquis per oncology's recommendations Heme Onc on board Reviewed lab work C4 level low @ 9, Hep panel - non reactive LDH-311, Fibrinogen elevated @ 572 HIT came back as positive appreciate Heme Onc recommendations cont holding Eliquis and avoid heparin inj Cont Arixtra SQ inj for now (8) Abdominal pain Current Visit: Yes Status: Acute Assessment and Plan: Denies any abdominal pain this time tolerating oral intake could be viral gastroenteritis also concerning for ischemic CP. Card on board cont PPI and G.I cocktail Pt prefers to have EGD and Colonoscopy as an out pt (9) Hematochezia Current Visit: Yes Status: Acute Assessment and Plan: Denied any blood in stool he noticed some bright red blood on toilet paper concerning for hemorrhoidal bleeding His stool hemoccult is negative Consulted GI for further eval on PPI BID (10) Elevated LFTs Current Visit: Yes Status: Acute Assessment and Plan: Chronically elevated due to hepatic congestion with Rt heart failure cont close monitoring - Time Spent with Patient Total time spent is greater than 50% in coordination of care (as documented) at patient's floor/unit and/or counseling patient: Internal Medicine: Result - Labs CBC & Chem 7: 10/27/18 02:24 10/27/18 02:24 Labs: Short CBC 10/27/18 Range/Units 02:24 WBC 11.3 H (4.3-11.1) K/mcL Hgb 13.0 (12.9-16.9) g/dL Hct 41.4 (37.5-50.1) % Plt Count 109 L (140-400) K/mcL Neutrophils # 8.9 (1.6-8.9) K/mcL BMP 10/27/18 02:24 Sodium 135 L Potassium 4.9 Chloride 100 Carbon Dioxide 27 BUN 20 Creatinine 0.85 Glucose 163 H Calcium 8.6 - ABG Interpretation ABG results: PT/INR, D-dimer PT 20.1 Seconds (9.4-12.1) H 10/25/18 05:08 Consult Discharge Plan - Plan Referrals: Lluvia Palomino, MUSHRO[employer] FARMER [Primary Care Provider] - (Please contact the office to schedule an appointment within 7 days of discharge. Thank you. ) (2) Cardiomyopathy Qualifiers: Cardiomyopathy type: ischemic Qualified Code(s): I25.5 - Ischemic cardiomyopathy (3) Diabetes mellitus, type 2 Qualifiers: Diabetes mellitus usp insulin use: without truck terminal manager use Diabetes mellitus complication status: without complication Qualified Code(s): E11.9 - Type 2 diabetes mellitus without complications (4) Atrial fibrillation Qualifiers: Atrial fibrillation type: unspecified Qualified Code(s): I48.91 - Unspecified atrial fibrillation (5) Congestive heart failure Qualifiers: Heart failure type: systolic Heart failure chronicity: acute on chronic Qualified Code(s): I50.23 - Acute on chronic systolic (congestive) heart failure (6) CAD (coronary artery disease) Qualifiers: Coronary Disease-Associated Artery/Lesion type: [place] artery [place] vs. transplanted heart: [place] heart Associated angina: angina presence unspecified Qualified Code(s): I25.10 - Atherosclerotic heart disease of [place] coronary artery without angina pectoris (8) Abdominal pain Qualifiers: Abdominal location: epigastric Qualified Code(s): R10.13 - Epigastric pain
[2018-10-27] MEDS: *HR* Fondaparinux 7.5 MG/0.6 ML SYRINGE SQ SCH (11:56)
[2018-10-27] MEDS: *HR* Fondaparinux 2.5 MG/0.5 ML SYRINGE SQ SCH (11:56)
[2018-10-28 04:00] LABS: Basophils % 0.3 %; Eosinophils # 0.2 K/mcL (0.0-0.6); Eosinophils % 2.5 %; Hematocrit 39.2 % (37.5-50.1); Hemoglobin 12.4 g/dL (12.9-16.9); Immature Granulocytes % 0.7 % (0-4); Lymphocytes # 1.2 K/mcL (0.6-4.6); Lymphocytes % 12.1 %; Mean Corpuscular HGB Conc 31.6 g/dL (31.6-35.5); Mean Corpuscular Hemoglobin 28.8 pg (28.0-33.3); Mean Corpuscular Volume 91.2 fL (83.0-100.0); Mean Platelet Volume 12.2 fL (9.4-12.4); Monocytes # 0.9 K/mcL (0.0-1.3); Monocytes % 9.1 %; Neutrophils # 7.4 K/mcL (1.6-8.9); Platelet Count 135 K/mcL (140-400); Red Cell Distribution Width 14.6 % (11.5-14.5); Segmented Neutrophils % 75.3 %
[2018-10-28 04:20] LABS: Alanine Aminotransferase 65 Units/L (7-52); Albumin 2.9 g/dL (3.5-5.7); Albumin/Globulin Ratio 1.1 (1.1-2.2); Alkaline Phosphatase 127 Units/L (34-104); Aspartate Amino Transferase 45 Units/L (13-39); BUN/Creatinine Ratio 25 (6-26); Bilirubin,Direct 0.6 mg/dL (0.0-0.2); Bilirubin,Total 1.6 mg/dL (0.3-1.0); Blood Urea Nitrogen 23 mg/dL (8-23); Calcium 8.4 mg/dL (8.6-10.3); Carbon Dioxide 28 mEq/L (23-29); Chloride 100 mEq/L (98-107); Globulin 2.7 g/dL (2.4-3.5); Glucose 156 mg/dL (70-105); Osmolality,Calculated 285 (280-300); Potassium 4.5 mEq/L (3.5-5.1); Sodium 134 mEq/L (136-145); Total Protein 5.6 g/dL (6.4-8.9); eGFR For Non-African Americans > 60 (> 60)
[2018-10-28] MEDS: OXYCODONE Oral CONC 10 MG/0.5 ML ORAL.SYG SL PRN (05:13)
[2018-10-28] MEDS: Pantoprazole 40 MG VIAL IVP SCH (05:14)
[2018-10-28] MEDS: Isosorbide MONOnitrate (24 HR) 60 MG TAB.ER.24H PO SCH (07:28)
[2018-10-28] MEDS: SACUBITRIL/VALSARTAN 24/26 MG TABLET PO SCH (07:28)
[2018-10-28] MEDS: Folic Acid 1 MG TABLET PO SCH (07:28)
[2018-10-28] MEDS: Cyanocobalamin (B-12) 1,000 MCG TABLET PO SCH (07:28)
[2018-10-28] MEDS: Diltiazem CD (24hr) 120 MG CAPSULE PO SCH (07:28)
[2018-10-28] MEDS: Gabapentin 300 MG CAPSULE PO SCH ×2 (07:28→11:46)
[2018-10-28] MEDS: Metoprolol XL (24 HR) Succ 50 MG TAB.ER.24H PO SCH (07:29)
[2018-10-28] MEDS: Aspirin 81 MG TAB.CHEW PO SCH (07:29)
[2018-10-28] MEDS: Furosemide 40 MG TABLET PO SCH (07:31)
--- NOTE | 2018-10-28 09:35 | Oncology Inp Progress Note ---
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 He may transition to Eliquis today and discontinue Arixtra. From a hematology perspective, patient is okay for discharge. If the initial parenteral anticoagulant is used for less than seven days and a switch to apixaban is planned, the initial apixaban dose should be 10 mg twice daily until a total of seven days of combined therapy has passed Heparin added to allergy Discussed with patient that he cannot receive any form of heparin products (He may in the future qualify for heparin re-challenge, this would only be in the case that his OD would decrease to an acceptable level and determined with discussion with human resources designate expert in this area) Continue ASA and Plavix-Currently no s/s bleeding, continue to monitor B12/folate supplements started BLE venous doppler: no DVT/SVT noted We must maintain a high suspicion of thrombus (arterial and venous) in this patient Discussed s/s of both venous and arterial thrombus with patient and of which to be on high suspicion for (2) Prolonged PTT Current Visit: Yes Status: Acute Assessment and plan: (2) Prolonged PTT Current Visit: Yes Status: Acute Assessment and plan: Prolonged PT/INR/PTT noted on admission Prolongation making argatroban gtt difficult to titrate and was ultimately stopped with the patient then starting arixtra Etiology of prolonged PT/INR/PTT unclear, concern for underlying congestive hepatopathy (noted on liver US) likely playing role Coags now down trending Hepatitis panel negative (3) Epigastric pain Current Visit: Yes Status: Acute Assessment and plan: Epigastric pain improved. Plan: Refer to Dr. Ward at discharge for possible EGD and colonoscopy (if needed). Patient notes that he is already established with Dr. Ward for his colonoscopies. Oncology: Subj Interval history: Mr. Lambert is awake and alert sitting on the edge of the bed this morning with family at bedside. He denies SOB at rest and is on room air. Discussed platelet count o 135,000 this morning. He notes that is a large increase from his results over the weekend and is hopeful to be discharged as early as tomorrow. Scattered bruising noted to abdomen from Arixtra (fondaparinux) injections. Denies pain or tenderness to palpation. notes worsening bilateral pedal edema. Patient has been sitting in bed with feet elevated, until recently. Andre notes that he has been seeing Dr. Ward for his previous colonoscopies and would prefer him to do his procedures on an outpatient basis. - Constitutional General appearance: cooperative, morbidly obese - Respiratory Respiratory exam: Present: decreased breath sounds, CTAB - Cardiovascular Cardiovascular exam: Present: irregular rhythm - GI/Abdominal GI/Abdominal exam: Present: distended. Absent: tenderness - Neurological Exam Neurological exam: Present: alert, oriented X3 - Psychiatric Psychiatric exam: Present: normal affect, normal mood - Skin Skin exam: Present: warm Additional comments: bruising noted to abdomen Oncology: Obj Data - Labs CBC & Chem 7: 10/28/18 03:36 10/28/18 03:36 Consult Discharge Plan - Plan Referrals: Lluvia Palomino, CUSTOMER SOLUTIONS SPECIALIST [Primary Care Provider] - (Please contact the office to schedule an appointment within 7 days of discharge. Thank you. ) Inpatient Charges Provider: Dr. Yordan Ramirez <Raffi Ramirez - Last Filed: 10/28/18 14:57> Date of Encounter: 10/28/18 (1) Heparin induced thrombocytopenia Current Visit: Yes Status: Acute Oncology: Obj Data - Labs CBC & Chem 7: 10/28/18 03:36 10/28/18 03:36 Inpatient Charges Provider: Dr. Yordan Ramirez Follow up - Inpatient: [id number] - Attending Attestation I examined this patient and my medical decision-making was reviewed with the Advanced Practice Nurse. I agree with the documented findings, disposition and treatment plan as described except to the extent set forth below. He is doing well. He is eating lunch. He is breathing comfortably. No change to his health. Platelet count is 132,000 today. I think it is resulting transitioned Eliquis allow him to go home today. He may reestablish with Dr. Ward for EGD as this is who performed this procedure in the past. This can be done electively. Please establish follow-up with Dr. ward. There is no need for oncology follow-up. Heparin has been added to his allergy list.
[2018-10-28 11:02] VITALS: BP 126/78
[2018-10-28] MEDS: *HR* Fondaparinux 2.5 MG/0.5 ML SYRINGE SQ SCH (11:45)
[2018-10-28] MEDS: *HR* Fondaparinux 7.5 MG/0.6 ML SYRINGE SQ SCH (11:46)
--- NOTE | 2018-10-28 15:45 | Discharge Summary ---
- NOTES TO OUTPATIENT PROVIDER Notes to Outpatient Provider: f/u with PCP in one week. f/u with Heme Onc Dr. Ramirez in 2 weeks. Please start taking Eliquis 5mg PO BID from tomorrow @ 10/29/18. Please go for CBC in 2 days. Date of Encounter: 10/28/18 Time of Encounter: 15:39 - Discharge Diagnosis (1) Heparin induced thrombocytopenia Priority: Primary Status: Acute (2) JOSE (obstructive sleep apnea) Priority: Secondary Status: Suspected (3) Cardiomyopathy Priority: Secondary Status: Chronic Qualifiers: Cardiomyopathy type: ischemic Qualified Code(s): I25.5 - Ischemic cardiomyopathy (4) Diabetes mellitus, type 2 Priority: Secondary Status: Chronic Qualifiers: Diabetes mellitus mid level net developer insulin use: without mid level net developer use Diabetes mellitus complication status: without complication Qualified Code(s): E11.9 - Type 2 diabetes mellitus without complications (5) Atrial fibrillation Priority: Secondary Status: Chronic Qualifiers: Atrial fibrillation type: unspecified Qualified Code(s): I48.91 - Unspecified atrial fibrillation (6) Congestive heart failure Priority: Secondary Status: Acute Qualifiers: Heart failure type: systolic Heart failure chronicity: acute on chronic Qualified Code(s): I50.23 - Acute on chronic systolic (congestive) heart failure (7) CAD (coronary artery disease) Priority: Secondary Status: Chronic Qualifiers: Coronary Disease-Associated Artery/Lesion type: [place] artery [place] vs. transplanted heart: [place] heart Associated angina: angina presence unspecified Qualified Code(s): I25.10 - Atherosclerotic heart disease of [place] coronary artery without angina pectoris (8) Abdominal pain Priority: Secondary Status: Acute Qualifiers: Abdominal location: epigastric Qualified Code(s): R10.13 - Epigastric pain (9) Hematochezia Priority: Secondary Status: Acute (10) Elevated LFTs Priority: Secondary Status: Acute Hospital course: Mr. Lambert is a 68 year old male patient with a history of coronary artery disease status post recent stent on 09/29/2018 in the mLAD, systolic congestive heart failure, Ischemic cardiomyopathy, atrial fibrillation on anticoagulation with Eliquis who presented to the ER with complaints of acute epigastric pain that has been going on for past couple of days associated with pain going down into his abdomen along with diarrhea. He also noticed some blood on toilet paper but normal stool noticed. Earlier this month he had stent placed to mid LAD. He had type B dissection with proximal edge of the first place stent. As such a secondary stent was deployed proximally. Patient has been on dual antiplatelet therapy since then. He presented to the ER with chest pain again one week back during which time he was placed on IV heparin. He was eventually discharged home on Imdur. Patient has been on Eliquis for anticoagulation since his initial admission earlier this month. Now his platelets were at 45 with concerning for heparin induced thrombocytopenia. He was admitted in the hospital and held his anti coag Eliquis and started him on Arixtra SQ inj.His HIT panel came back as positive for HIT. He was evaluated by heme onc who recommend to continue Arixtra until his platelets reach to 150K. Today his platelets were @ 135. He does have severe CHF exacerbation which improved with aggressive IV diuresis with Lasix. He did c/o abdominal pain at epigastric region concerning for ischemic pain. Patient was evaluated by sausage mixer, who did not recommend any work up now, other than continuing his DAPT and other home meds. He happened to have Afib with RVR, so Cardiology added Cardizem CD 120mg and now his HR well controlled. He also c/o hematochezia upon admission, however his stool heme occult came back as negative and his hemoglobin stayed stable. So recommend him to f/u with GI as an out pt. - Time Spent with Patient Total time spent providing and/or coordinating discharge services: - Discharge Medications Prescriptions: New Diltiazem CD (24hr) [Cardizem CD] 120 mg PO DAILY #30 cap.er.24h Continued Glucosamine HCl/Chondr Foy A Na [[facility]vs Glucosamine-Chondr Tablet] 1 tab PO DAILY Omeprazole [PriLOSEC] 40 mg PO DAILY Zolpidem [Ambien] 10 mg PO HS PRN PRN Reason: Sleep Acetaminophen [Tylenol Arthritis] 650 mg PO Q48H Gabapentin [Neurontin] 300 mg PO QID Apixaban [Eliquis] 5 mg PO BID #60 tablet Nitroglycerin 0.4 mg SL Q5MIN PRN #30 tab.subl PRN Reason: Chest Pain Aspirin 81 mg PO DAILY #30 tab.chew Atorvastatin [Lipitor] 40 mg PO HS #30 tablet Clopidogrel [Plavix] 75 mg PO DAILY #30 tablet Potassium Chloride 40 meq PO DAILY #60 tab.er.prt Furosemide [Lasix] 40 mg PO BID #120 tablet Tramadol HCl [Ultram] 50 mg PO BID PRN PRN Reason: Pain Sacubitril/Valsartan 24/26 mg [Entresto 24 mg-26 mg Tablet] 1 each PO DAILY Metoprolol Succinate 200 mg PO DAILY Isosorbide MONOnitrate (24 HR) [Imdur] 30 mg PO DAILY #30 tab.er.24h Home Medications: Glucosamine HCl/Chondr Foy A Na [Cvs Glucosamine-Chondr Tablet] 1 tab PO DAILY 03/27/17 [History] Omeprazole [PriLOSEC] 40 mg PO DAILY 03/27/17 [History] Zolpidem [Ambien] 10 mg PO HS PRN 03/27/17 [History] Acetaminophen [Tylenol Arthritis] 650 mg PO Q48H 09/26/18 [History] Gabapentin [Neurontin] 300 mg PO QID 09/26/18 [History] Apixaban [Eliquis] 5 mg PO BID #60 tablet 09/27/18 [Rx] Aspirin 81 mg PO DAILY #30 tab.chew 10/04/18 [Rx] Atorvastatin [Lipitor] 40 mg PO HS #30 tablet 10/04/18 [Rx] Clopidogrel [Plavix] 75 mg PO DAILY #30 tablet 10/04/18 [Rx] Furosemide [Lasix] 40 mg PO BID #120 tablet 10/04/18 [Rx] Nitroglycerin 0.4 mg SL Q5MIN PRN #30 tab.subl 10/04/18 [Rx] Potassium Chloride 40 meq PO DAILY #60 tab.er.prt 10/04/18 [Rx] Metoprolol Succinate 200 mg PO DAILY 10/14/18 [History] Sacubitril/Valsartan 24/26 mg [Entresto 24 mg-26 mg Tablet] 1 each PO DAILY 10/14/18 [History] Tramadol HCl [Ultram] 50 mg PO BID PRN 10/14/18 [History] Isosorbide MONOnitrate (24 HR) [Imdur] 30 mg PO DAILY #30 tab.er.24h 10/16/18 [Rx] Diltiazem CD (24hr) [Cardizem CD] 120 mg PO DAILY #30 cap.er.24h 10/28/18 [Rx] Allergies/Adverse Reactions: Allergy/AdvReac Type Severity Reaction Status Date / Time heparin AdvReac See Verified 10/24/18 08:33 Comments Heparin Analogues AdvReac See Verified 10/24/18 08:33 Comments Date of admission: 10/22/18 10:21 Primary care physician: Lluvia Palomino CNP Consults: 10/20/18 17:28 Consult to Oncology Hematology [CONS] Stat Consulting Provider: Stephen Morris Reason for Consult: Thrombocytpenia; patient on ASA, Plavix and eliquis. Recent stent Time Notified: 17:29 Call Completed: Yes 10/21/18 07:19 Consult to Pulmonology [CONS] Routine Consulting Provider: Pulm [facility] Reason for Consult: CP Call Completed: Yes 10/21/18 12:26 Consult to Cardiology [CONS] Routine Comment: Consulting Provider: Cardiology [facility] Reason for Consult: Recurrent chest pain.. Recent LHC with PCI Time Notified: 12:26 Call Completed: Yes 10/21/18 14:33 Consult to Gastroenterology [CONS] Routine Consulting Provider: Gastroenterology [facility] Reason for Consult: Acute GI bleed - Bright red blood per rectum Time Notified: 14:34 Call Completed: Yes 10/24/18 08:33 Consult to Nurse Navigator [CONS] Routine Comment: CHF - Constitutional Vitals: Temp Pulse Resp BP Pulse Ox 97.9 F 85 16 126/78 96 10/28/18 10:59 10/28/18 10:59 10/28/18 10:59 10/28/18 10:59 10/28/18 10:59 General appearance: Present: cooperative, morbidly obese, pleasant, answers questions appropriately Exam: Gen: Alert, awake, Oriented to time,place and person Chest: Diminished breath sounds B/L, mild wheezing, No crackles, No rales Heart: S1S2+ Afib, No murmurs Abd: Soft, NT, BS +, No organomegaly Ext: 1+ edema, pulses are palpable, No calf tenderness Neuro : Benign findings Skin: No rash. - Patient Status Disposition: Home, Self-Care Condition: Good Overall status at discharge: patient is back to baseline - Ambulatory Orders Ambulatory Orders: Complete Blood Count [HEME] Time Frame: 2 Days, Facility: [facility], Location: Lab - Discharge Instructions Follow Up With: Raffi Ramirez MD [Partnered Physician] - Lluvia Palomino CNP [Primary Care Provider] - (Please contact the office to schedule an appointment within 7 days of discharge. Thank you. ) Sascha Bland MD [Non-Partnered Physician] - - Diet and Activity Activity: increase activity as tolerated Diet: low salt diet
[2018-10-29] MEDS ORDERED: Apixaban 5 MG TABLET PO SCH (09:00)
== END 2018-10-28 16:31 | disposition home or self-care (01) | DRG 813 ==
LOC: EMEROOARM 14:15 → 3ANU 14:15 → SUATTDRO 17:34 → 3BNU 17:57
PROVIDERS: ADMIT Internal Medicine; ATTEND Family Medicine

== ENCOUNTER 2019-02-10 19:15 | Inpatient (IN) ==
--- NOTE | 2019-02-10 19:18 | Emergency Department Note ---
Disposition Clinical Impression: Epigastric pain, Elevated troponin Vomiting Qualifiers: Vomiting type: unspecified Vomiting Intractability: non-intractable Nausea presence: with nausea Qualified Code(s): R11.2 - Nausea with vomiting, unspecified Biliary stent obstruction Qualifiers: Encounter type: initial encounter Qualified Code(s): T85.590A - Other mechanical complication of bile duct prosthesis, initial encounter Disposition: Still a Patient Forms: ED Satisfaction Letter Time of Disposition: 20:42 General Adult HPI - General Chief complaint: ED Chest Pain Stated complaint: cp Time Seen by Provider: 02/10/19 19:16 - Related Data Home Medications Medication Instructions Recorded Confirmed Glucosamine HCl/Chondr Foy A Na 1 tab PO DAILY 03/27/17 11/05/18 [[facility] Glucosamine-Chondr Tablet] Omeprazole [PriLOSEC] 40 mg PO DAILY 03/27/17 11/05/18 Zolpidem [Ambien] 10 mg PO HS PRN 03/27/17 11/05/18 Acetaminophen [Tylenol Arthritis] 650 mg PO Q48H 09/26/18 11/05/18 Metoprolol Succinate 200 mg PO DAILY 10/14/18 11/05/18 Sacubitril/Valsartan 24/26 MG 1 each PO DAILY 10/14/18 11/05/18 [Entresto 24 mg-26 mg Tablet] Tramadol HCl [Ultram] 50 mg PO BID PRN 10/14/18 11/05/18 Pregabalin [Lyrica] 150 mg PO BID 11/05/18 11/05/18 Previous Rx's Medication Instructions Recorded Apixaban [Eliquis] 5 mg PO BID #60 tablet 09/27/18 Aspirin 81 mg PO DAILY #30 tab.chew 10/04/18 Atorvastatin [Lipitor] 40 mg PO HS #30 tablet 10/04/18 Clopidogrel [Plavix] 75 mg PO DAILY #30 tablet 10/04/18 Furosemide [Lasix] 40 mg PO BID #120 tablet 10/04/18 Nitroglycerin 0.4 mg SL Q5MIN PRN #30 tab.subl 10/04/18 Potassium Chloride 40 meq PO DAILY #60 tab.er.prt 10/04/18 Isosorbide MONOnitrate (24 HR) 30 mg PO DAILY #30 tab.er.24h 10/16/18 [Imdur] Diltiazem CD (24hr) [Cardizem CD] 120 mg PO DAILY #30 cap.er.24h 10/28/18 Allergies Allergy/AdvReac Type Severity Reaction Status Date / Time heparin AdvReac See Verified 11/05/18 14:48 Comments Heparin Analogues AdvReac See Verified 11/05/18 14:48 Comments Past Medical History - Past Medical History Medical history: Reports: arthritis, atrial fibrillation, CHF, coronary artery disease, GERD, hypertension Surgical history: Reports: appendectomy, herniorrhaphy, orthopedic, other Psychiatric history: Reports: no psych history - Social History Smoking Status: Never smoker Smokeless Tobacco Status: No Alcohol use: Reports: none Drug use: Reports: none Course Vital Signs Temperature 99.3 F 02/10/19 19:17 Pulse Rate 71 02/10/19 19:17 Respiratory Rate 20 02/10/19 19:17 Blood Pressure 127/88 02/10/19 19:17 O2 Sat by Pulse Oximetry 98 02/10/19 19:17 Temperature 99.3 F 02/10/19 19:17 Pulse Rate 71 02/10/19 19:17 Respiratory Rate 20 02/10/19 19:17 Blood Pressure 127/88 02/10/19 19:17 O2 Sat by Pulse Oximetry 98 02/10/19 19:17 Oxygen Delivery Oxygen Delivery Room Air Medical Decision Making - Lab Data Result diagrams: 02/10/19 19:21 02/10/19 19:21 Lab Results 02/10/19 02/10/19 02/10/19 Range/Units 19:21 19:21 19:21 WBC 13.1 H (4.3-11.1) K/mcL RBC 5.16 (4.19-5.50) M/mcL Hgb 14.2 (12.9-16.9) g/dL Hct 46.3 (37.5-50.1) % MCV 89.7 (83.0-100.0) fL MCH 27.5 L (28.0-33.3) pg MCHC 30.7 L (31.6-35.5) g/dL RDW 20.9 H (11.5-14.5) % Plt Count 352 (140-400) K/mcL MPV 12.0 (9.4-12.4) fL Immature Gran % 0.5 (0-4) % Seg Neutrophils % 88.1 % Lymphocytes % 6.3 % Monocytes % 3.2 % Eosinophils % 1.5 % Basophils % 0.4 % Neutrophils # 11.5 H (1.6-8.9) K/mcL Lymphocytes # 0.8 (0.6-4.6) K/mcL Monocytes # 0.4 (0.0-1.3) K/mcL Eosinophils # 0.2 (0.0-0.6) K/mcL Basophils # 0.1 (0.0-0.2) K/mcL PT 21.5 H (9.4-12.1) Seconds INR 1.9 Sodium 138 (136-145) mEq/L Potassium 4.1 (3.5-5.1) mEq/L Chloride 99 (98-107) mEq/L Carbon Dioxide 29 (23-29) mEq/L BUN 28 H (8-23) mg/dL Creatinine 1.29 (0.70-1.30) mg/dL Est GFR ( Amer) > 60 (> 60) Est GFR (Non-Af Amer) 56 L (> 60) BUN/Creatinine Ratio 22 (6-26) Glucose 150 H (70-105) mg/dL Calculated Osmolality 294 (280-300) Calcium 9.3 (8.6-10.3) mg/dL Total Bilirubin 3.7 H (0.3-1.0) mg/dL Direct Bilirubin 2.3 H (0.0-0.2) mg/dL Indirect Bilirubin 1.4 H (0.0-1.2) mg/dL AST 133 H (13-39) Units/L ALT 77 H (7-52) Units/L Alkaline Phosphatase 257 H (34-104) Units/L Troponin I 0.12 H* (< 0.04) ng/mL Serum Total Protein 7.8 (6.4-8.9) g/dL Albumin 3.9 (3.5-5.7) g/dL Globulin 3.9 H (2.4-3.5) g/dL Albumin/Globulin Ratio 1.0 L (1.1-2.2) Lipase 7 L (11-82) Units/L Attestation Statement - Attestation Attestation: I reviewed the residents documentation and agree with the residents assessment and plan of care. I have personally had face to face time with the patient. (B rief History, Brief Exam, and MDM) I personally supervised and was present for the patricio/critical portions of the following procedures completed by the resident: (add procedures performed here).Face to face time provided Patient to ED via private vehicle with CP, N/V. Evaluated in conjunction with resident physician Dr. Abdi upon arrival. I attest to supervising the resident physician's interpretation of the ECG patient with recent h/o admission to the [facility] for ERCP and hepatobiliary stent deployment. 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 18:35: test results d/w patient. concern for patency of stent. Plan to transfer to the [facility] for continuation of care. Care endorsed to Dr. Bond at 21:00 pending acceptance, transfer
[2019-02-10] MEDS ORDERED: *HR* HYDROmorphone (PF) 1 MG/ML SYRINGE IVP ONE (19:19)
[2019-02-10] MEDS ORDERED: Ondansetron 4 MG/2 ML VIAL IVP ONE (19:19)
--- NOTE | 2019-02-10 19:24 | Emergency Department Note ---
Disposition Clinical Impression: Epigastric pain Vomiting Qualifiers: Vomiting type: unspecified Vomiting Intractability: non-intractable Nausea presence: with nausea Qualified Code(s): R11.2 - Nausea with vomiting, un specified Disposition: Still a Patient Forms: ED Satisfaction Letter Time of Disposition: 20:09 General Adult HPI - General Chief complaint: ED Chest Pain Stated complaint: cp Time Seen by Provider: 02/10/19 19:16 Source: patient, family Limitations: no limitations Nursing Notes Reviewed: Yes Vital Signs Reviewed: Yes - History of Present Illness HPI Narrative: 68 M with past medical history of coronary artery disease requiring several stents, recent diagnosis of cancer of undetermined etiology (either pancreatic or bile duct), A. fib, CHF, heparin-induced thrombocytopenia and hypertension presents to the emergency department was some onset of epigastric pain radiating into his back with nausea and vomiting. Patient has had pain similar to this in the past but does not remember what he was diagnosed with. Patient denies fever, chills, chest pain, shortness of breath, lower abdominal pain, dysuria, difficulty with bowel movements. - Related Data Home Medications Medication Instructions Recorded Confirmed Glucosamine HCl/Chondr Foy A Na 1 tab PO DAILY 03/27/17 11/05/18 [[facility] Glucosamine-Chondr Tablet] Omeprazole [PriLOSEC] 40 mg PO DAILY 03/27/17 11/05/18 Zolpidem [Ambien] 10 mg PO HS PRN 03/27/17 11/05/18 Acetaminophen [Tylenol Arthritis] 650 mg PO Q48H 09/26/18 11/05/18 Metoprolol Succinate 200 mg PO DAILY 10/14/18 11/05/18 Sacubitril/Valsartan 24/26 MG 1 each PO DAILY 10/14/18 11/05/18 [Entresto 24 mg-26 mg Tablet] Tramadol HCl [Ultram] 50 mg PO BID PRN 10/14/18 11/05/18 Pregabalin [Lyrica] 150 mg PO BID 11/05/18 11/05/18 Previous Rx's Medication Instructions Recorded Apixaban [Eliquis] 5 mg PO BID #60 tablet 09/27/18 Aspirin 81 mg PO DAILY #30 tab.chew 10/04/18 Atorvastatin [Lipitor] 40 mg PO HS #30 tablet 10/04/18 Clopidogrel [Plavix] 75 mg PO DAILY #30 tablet 10/04/18 Furosemide [Lasix] 40 mg PO BID #120 tablet 10/04/18 Nitroglycerin 0.4 mg SL Q5MIN PRN #30 tab.subl 10/04/18 Potassium Chloride 40 meq PO DAILY #60 tab.er.prt 10/04/18 Isosorbide MONOnitrate (24 HR) 30 mg PO DAILY #30 tab.er.24h 10/16/18 [Imdur] Diltiazem CD (24hr) [Cardizem CD] 120 mg PO DAILY #30 cap.er.24h 10/28/18 Allergies Allergy/AdvReac Type Severity Reaction Status Date / Time heparin AdvReac See Verified 11/05/18 14:48 Comments Heparin Analogues AdvReac See Verified 11/05/18 14:48 Comments All systems ED: reviewed and negative except as stated. Review of Systems: As Per HPI Constitutional: Denies: fever, chills, weakness Cardiovascular: Denies: chest pain, palpitations, dyspnea on exertion Respiratory: Denies: cough, dyspnea, wheezes Gastrointestinal: Reports: abdominal pain, nausea, vomiting. Denies: diarrhea Genitourinary: Denies: dysuria, hematuria Musculoskeletal: Reports: back pain. Denies: neck pain Integumentary: Denies: rash Neurological: Denies: headache Endocrine: Denies: fatigue Past Medical History - Past Medical History Attestation: Yes The following information was validated with the patient. Source: patient Medical history: Reports: arthritis, atrial fibrillation, CHF, coronary artery disease, GERD, hypertension Surgical history: Reports: appendectomy, herniorrhaphy, orthopedic, other Psychiatric history: Reports: no psych history - Social History Smoking Status: Never smoker Smokeless Tobacco Status: No Alcohol use: Reports: none Drug use: Reports: none Physical Exam - General Limitations: no limitations General appearance: alert, in distress (mild physical discomfort) - Head Head exam: atraumatic, normocephalic - Eye Eye exam: Present: normal appearance, PERRL, EOMI - ENT ENT exam: normal exam, normal oropharynx - Neck Neck exam: Present: normal inspection. Absent: tenderness - Chest Chest inspection: Present: normal inspection. Absent: tenderness - Respiratory Respiratory exam: Present: normal lung sounds bilaterally. Absent: wheezes - Cardiovascular Cardiovascular exam: Present: regular rate, normal rhythm - Abdominal Exam Abdominal exam: Present: soft, tenderness. Absent: distention, guarding, rebound, rigidity Abdominal tenderness: Present: epigastrium, moderate - Extremities Exam Extremities exam: Present: normal inspection. Absent: tenderness, pedal edema - Neurological Exam Neurological exam: Present: alert, oriented X3 - Psychiatric Psychiatric exam: Present: normal affect, normal mood - Skin Skin exam: Present: warm, dry, intact Course Vital Signs Temperature 99.3 F 02/10/19 19:17 Pulse Rate 71 02/10/19 19:17 Respiratory Rate 20 02/10/19 19:17 Blood Pressure 127/88 02/10/19 19:17 O2 Sat by Pulse Oximetry 98 02/10/19 19:17 Temperature 99.3 F 02/10/19 19:17 Pulse Rate 71 02/10/19 19:17 Respiratory Rate 20 02/10/19 19:17 Blood Pressure 127/88 02/10/19 19:17 O2 Sat by Pulse Oximetry 98 02/10/19 19:17 Oxygen Delivery Oxygen Delivery Room Air Medical Decision Making - [facility] Narrative Medical decision making narrative: Patient presents with epigastric pain radiating to his back concerning for pancreatitis or other intra-abdominal pathology. We will obtain basic labs, EKG, CT scan of the patient's abdomen and treat his pain and nausea with Dilaudid and Zofran. 2004 - chest x-ray does not demonstrate acute heart failure or pneumonia. Lab work shows elevation in the patient's liver enzymes and troponin. Awaiting CAT scan at this time. Patient will be signed out to Dr. Temple for further management of his care. - Medical Records Medical records reviewed: Yes I reviewed the patient's medical records. - Lab Data Lab results reviewed: Yes I reviewed the patient's lab results. Result diagrams: 02/10/19 19:21 02/10/19 19:21 Lab Results 02/10/19 02/10/19 02/10/19 Range/Units 19:21 19:21 19:21 WBC 13.1 H (4.3-11.1) K/mcL RBC 5.16 (4.19-5.50) M/mcL Hgb 14.2 (12.9-16.9) g/dL Hct 46.3 (37.5-50.1) % MCV 89.7 (83.0-100.0) fL MCH 27.5 L (28.0-33.3) pg MCHC 30.7 L (31.6-35.5) g/dL RDW 20.9 H (11.5-14.5) % Plt Count 352 (140-400) K/mcL MPV 12.0 (9.4-12.4) fL Immature Gran % 0.5 (0-4) % Seg Neutrophils % 88.1 % Lymphocytes % 6.3 % Monocytes % 3.2 % Eosinophils % 1.5 % Basophils % 0.4 % Neutrophils # 11.5 H (1.6-8.9) K/mcL Lymphocytes # 0.8 (0.6-4.6) K/mcL Monocytes # 0.4 (0.0-1.3) K/mcL Eosinophils # 0.2 (0.0-0.6) K/mcL Basophils # 0.1 (0.0-0.2) K/mcL PT 21.5 H (9.4-12.1) Seconds INR 1.9 Sodium 138 (136-145) mEq/L Potassium 4.1 (3.5-5.1) mEq/L Chloride 99 (98-107) mEq/L Carbon Dioxide 29 (23-29) mEq/L BUN 28 H (8-23) mg/dL Creatinine 1.29 (0.70-1.30) mg/dL Est GFR ( Amer) > 60 (> 60) Est GFR (Non-Af Amer) 56 L (> 60) BUN/Creatinine Ratio 22 (6-26) Glucose 150 H (70-105) mg/dL Calculated Osmolality 294 (280-300) Calcium 9.3 (8.6-10.3) mg/dL Total Bilirubin 3.7 H (0.3-1.0) mg/dL Direct Bilirubin 2.3 H (0.0-0.2) mg/dL Indirect Bilirubin 1.4 H (0.0-1.2) mg/dL AST 133 H (13-39) Units/L ALT 77 H (7-52) Units/L Alkaline Phosphatase 257 H (34-104) Units/L Troponin I 0.12 H* (< 0.04) ng/mL Serum Total Protein 7.8 (6.4-8.9) g/dL Albumin 3.9 (3.5-5.7) g/dL Globulin 3.9 H (2.4-3.5) g/dL Albumin/Globulin Ratio 1.0 L (1.1-2.2) Lipase 7 L (11-82) Units/L - Radiology Data Radiology results reviewed: Yes I reviewed the patient's radiology results. - EKG Data EKG #1 EKG attestation: Yes I reviewed and interpreted this EKG. EKG results narrative: EKG obtained at 19:17 on she has 19 Heart rate 79 bpm, NJ interval 214 20 QRS duration 111, QT 49, QTC 469 Sinus rhythm with first-degree heart block. Minimal ST segment elevation in the anterior leads which is unchanged when compared to previous dated . No signs of ST segment depression. No other changes compared to previous.
[2019-02-10 19:32] LABS: Basophils # 0.1 K/mcL (0.0-0.2); Basophils % 0.4 %; Eosinophils # 0.2 K/mcL (0.0-0.6); Eosinophils % 1.5 %; Hematocrit 46.3 % (37.5-50.1); Hemoglobin 14.2 g/dL (12.9-16.9); Immature Granulocytes % 0.5 % (0-4); Lymphocytes # 0.8 K/mcL (0.6-4.6); Lymphocytes % 6.3 %; Mean Corpuscular HGB Conc 30.7 g/dL (31.6-35.5); Mean Corpuscular Hemoglobin 27.5 pg (28.0-33.3); Mean Corpuscular Volume 89.7 fL (83.0-100.0); Monocytes # 0.4 K/mcL (0.0-1.3); Monocytes % 3.2 %; Neutrophils # 11.5 K/mcL (1.6-8.9); Platelet Count 352 K/mcL (140-400); Red Blood Count 5.16 M/mcL (4.19-5.50); Red Cell Distribution Width 20.9 % (11.5-14.5); Segmented Neutrophils % 88.1 %; White Blood Count 13.1 K/mcL (4.3-11.1)
[2019-02-10 19:41] LABS: INR 1.9; Prothrombin Time 21.5 Seconds (9.4-12.1)
[2019-02-10 19:57] LABS: Alanine Aminotransferase 77 Units/L (7-52); Albumin 3.9 g/dL (3.5-5.7); Alkaline Phosphatase 257 Units/L (34-104); Aspartate Amino Transferase 133 Units/L (13-39); BUN/Creatinine Ratio 22 (6-26); Bilirubin,Direct 2.3 mg/dL (0.0-0.2); Bilirubin,Indirect 1.4 mg/dL (0.0-1.2); Bilirubin,Total 3.7 mg/dL (0.3-1.0); Blood Urea Nitrogen 28 mg/dL (8-23); Calcium 9.3 mg/dL (8.6-10.3); Carbon Dioxide 29 mEq/L (23-29); Chloride 99 mEq/L (98-107); Globulin 3.9 g/dL (2.4-3.5); Glucose 150 mg/dL (70-105); Lipase 7 Units/L (11-82); Osmolality,Calculated 294 (280-300); Potassium 4.1 mEq/L (3.5-5.1); Sodium 138 mEq/L (136-145); Total Protein 7.8 g/dL (6.4-8.9); Troponin I 0.12 ng/mL (< 0.04); eGFR For African Americans > 60 (> 60); eGFR For Non-African Americans 56 (> 60)
[2019-02-10] MEDS ORDERED: Promethazine 12.5 MG in 0.9 % Sodium Chloride 50 ML IVPB ONE (20:46)
[2019-02-10] MEDS ORDERED: *HR* Promethazine 25 MG/ML VIAL IVP ONE (20:51)
[2019-02-10] MEDS ORDERED: cefTRIAXone 1,000 MG in Water for inj. (sterile) 10 ML IVP STA (21:09)
[2019-02-11] MEDS ORDERED: 0.9 % Sodium Chloride 1,000 ML IVC STA (00:03)
[2019-02-11] MEDS ORDERED: 0.9 % Sodium Chloride 1,000 ML ONE (00:03)
[2019-02-11] MEDS ORDERED: Ketorolac 15 MG/ML VIAL IVP STA (00:13)
[2019-02-11] MEDS ORDERED: 0.9 % Sodium Chloride 1,000 ML IVC SCH ×2 (00:15→05:45)
[2019-02-11 00:26] LABS: Bilirubin,Urine Moderate (Negative); Blood,Urine Negative (Negative); Clarity,Urine Clear (Clear); Color,Urine Dark Yellow (Yellow); Glucose,Urine (UA) Normal (Normal); Ketones,Urine Negative (Negative); Leukocyte Esterase,Urine Negative (Negative); Nitrite,Urine Negative (Negative); PH,Urine 5.5 pH Units (5.0-8.0); Protein,Urine Negative (Neg-Trace); Specific Gravity,Urine 1.014 (1.010-1.025)
--- NOTE | 2019-02-11 00:45 | Emergency Department Note ---
Disposition Clinical Impression: Epigastric pain, Elevated troponin Vomiting Qualifiers: Vomiting type: unspecified Vomiting Intractability: non-intractable Nausea presence: with nausea Qualified Code(s): R11.2 - Nausea with vomiting, unspecified Biliary stent obstruction Qualifiers: Encounter type: initial encounter Qualified Code(s): T85.590A - Other mechanical complication of bile duct prosthesis, initial encounter Disposition: Admitted As Inpatient Condition: Critical Referrals: Lluvia Palomino, WAIT STAFF [Primary Care Provider] - Forms: ED Satisfaction Letter Time of Disposition: 01:57 General Adult HPI - General Chief complaint: ED Chest Pain Stated complaint: cp Time Seen by Provider: 02/10/19 19:16 Source: patient, family Limitations: no limitations Nursing Notes Reviewed: Yes Vital Signs Reviewed: Yes - History of Present Illness Pain Scale: 5 - Related Data Home Medications Medication Instructions Recorded Confirmed Glucosamine HCl/Chondr Foy A Na 1 tab PO DAILY 03/27/17 02/10/19 [[facility] Glucosamine-Chondr Tablet] Omeprazole [PriLOSEC] 40 mg PO DAILY 03/27/17 02/10/19 Zolpidem [Ambien] 10 mg PO HS PRN 03/27/17 02/10/19 Sacubitril/Valsartan 24/26 MG 1 each PO BID 10/14/18 02/10/19 [Entresto 24 mg-26 mg Tablet] Tramadol HCl [Ultram] 50 mg PO BID PRN 10/14/18 02/10/19 Pregabalin [Lyrica] 150 mg PO BID 11/05/18 02/10/19 Amiodarone HCl 200 mg PO DAILY 02/10/19 02/10/19 Atorvastatin Calcium 80 mg PO DAILY 02/10/19 02/10/19 Isosorbide MONOnitrate (24 HR) 30 mg PO BID 02/10/19 02/10/19 [Imdur] Metoprolol [Lopressor] 12.5 mg PO Q12H 02/10/19 02/10/19 Spironolactone 12.5 mg PO DAILY 02/10/19 02/10/19 Torsemide [Demadex] 40 mg PO BID 02/10/19 02/10/19 Previous Rx's Medication Instructions Recorded Apixaban [Eliquis] 5 mg PO BID #60 tablet 03/29/19 Aspirin 81 mg PO DAILY #30 tab.chew 10/04/18 Clopidogrel [Plavix] 75 mg PO DAILY #30 tablet 10/04/18 Nitroglycerin 0.4 mg SL Q5MIN PRN #30 tab.subl 10/04/18 Potassium Chloride 40 meq PO DAILY #60 tab.er.prt 10/04/18 Allergies Allergy/AdvReac Type Severity Reaction Status Date / Time heparin AdvReac See Verified 11/05/18 14:48 Comments Heparin Analogues AdvReac See Verified 11/05/18 14:48 Comments Constitutional: Denies: fever, chills, weakness Cardiovascular: Denies: chest pain, palpitations, dyspnea on exertion Respiratory: Denies: cough, dyspnea, wheezes Gastrointestinal: Reports: abdominal pain, nausea, vomiting. Denies: diarrhea Genitourinary: Denies: dysuria, hematuria Musculoskeletal: Reports: back pain. Denies: neck pain Integumentary: Denies: rash Neurological: Denies: headache Endocrine: Denies: fatigue Past Medical History - Past Medical History Attestation: Yes The following information was validated with the patient. Source: patient Medical history: Reports: arthritis, atrial fibrillation, CHF, coronary artery disease, GERD, hypertension, myocardial infarction Surgical history: Reports: appendectomy, herniorrhaphy, orthopedic, other Psychiatric history: Reports: no psych history - Social History Smoking Status: Never smoker Smokeless Tobacco Status: No Alcohol use: Reports: none Drug use: Reports: none Physical Exam - General Limitations: no limitations General appearance: alert, in distress (mild physical discomfort) - Head Head exam: atraumatic, normocephalic, normal inspection - Eye Eye exam: Present: normal appearance, PERRL, EOMI - ENT ENT exam: normal exam, normal oropharynx, mucous membranes moist - Neck Neck exam: Present: normal inspection, full ROM, trachea midline - Chest Chest inspection: Present: normal inspection, symmetric chest wall rise - Respiratory Respiratory exam: Present: normal lung sounds bilaterally, respiratory distress. Absent: accessory muscle use - Cardiovascular Cardiovascular exam: Present: regular rate, normal rhythm, normal heart sounds - Abdominal Exam Abdominal exam: Present: soft, Non-Tender. Absent: tenderness, distention, guar ding, rebound, rigidity, organomegaly, Martinez's sign, Rovsing's sign, tenderness at McBurney's Point - Extremities Exam Extremities exam: Present: normal inspection, full ROM. Absent: tenderness, pedal edema - Neurological Exam Neurological exam: Present: alert, oriented X3 - Psychiatric Psychiatric exam: Present: other (Appears tired.) - Skin Skin exam: Present: warm, dry, intact, normal color Course Course Narrative: Patient signed out by Dr. Temple pending transfer to the [facility]. He is accepted but they are waiting for a bed. Alerted by the family that they are concerned about the patient's status at this time. They report that he is "unresponsive." Whenever I entered the room he is sitting at the side of the bed. He is able to look up at me and talk to me. Albeit he does look tired and weak. We get him back into the bed. He is febrile at 104. Patient does have a history of an ERCP with a stent deployed. 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 He has been following at the [facility] for this. Patient was given a gram of Rocephin earlier in the evening. This could be the source of his infection from the gallbladder. We are still awaiting bed placement. The patient does have a history of congestive heart failure with an EF of 45-50%. We will provide patient with a liter of fluid at this time and start him on maintenance fluid. We will discuss admission here while we are waiting on bed placement at [facility]. - Reevaluation(s) Reevaluation #1: Patient's blood pressure began to decrease despite fluid administration. Patient does have a history of congestive heart failure so we did not want to fluid overload the patient and his blood pressure was not responsive to the initial fluid boluses so a central line was placed. Patient was placed on Levothroid at that time. His anabolic sore increased to bank is 07 as well as the Rocephin. His mentation is appropriate. He does appear to be tired however. He is conversant. In no respiratory distress. MAP stayed around 55. I did discuss the case with the ICU doctor at [facility]. He will be accepting the patient to the ICU but did recommend admission to ICU here secondary to no bed availability right now. Time: 01:53 - Consultations Consultation #1: Dr Charles accepted Pt to the ICU on pressors. Time: 01:57 Vital Signs Temperature 99.3 F 02/10/19 19:17 Pulse Rate 71 02/10/19 19:17 Respiratory Rate 20 02/10/19 19:17 Blood Pressure 127/88 02/10/19 19:17 O2 Sat by Pulse Oximetry 98 02/10/19 19:17 Temperature 101.5 F H 02/11/19 00:50 Pulse Rate 96 02/11/19 00:48 Respiratory Rate 24 02/11/19 00:48 Blood Pressure 81/54 02/11/19 00:48 O2 Sat by Pulse Oximetry 96 02/11/19 00:48 Oxygen Delivery Oxygen Delivery Nasal Cannula Medical Decision Making - Medical Records Medical records reviewed: Yes I reviewed the patient's medical records. - Lab Data Lab results reviewed: Yes I reviewed the patient's lab results. Result diagrams: 02/10/19 19:21 02/10/19 19:21 Lab Results 02/10/19 02/10/19 02/10/19 Range/Units 19:21 19:21 19:21 WBC 13.1 H (4.3-11.1) K/mcL RBC 5.16 (4.19-5.50) M/mcL Hgb 14.2 (12.9-16.9) g/dL Hct 46.3 (37.5-50.1) % MCV 89.7 (83.0-100.0) fL MCH 27.5 L (28.0-33.3) pg MCHC 30.7 L (31.6-35.5) g/dL RDW 20.9 H (11.5-14.5) % Plt Count 352 (140-400) K/mcL MPV 12.0 (9.4-12.4) fL Immature Gran % 0.5 (0-4) % Seg Neutrophils % 88.1 % Lymphocytes % 6.3 % Monocytes % 3.2 % Eosinophils % 1.5 % Basophils % 0.4 % Neutrophils # 11.5 H (1.6-8.9) K/mcL Lymphocytes # 0.8 (0.6-4.6) K/mcL Monocytes # 0.4 (0.0-1.3) K/mcL Eosinophils # 0.2 (0.0-0.6) K/mcL Basophils # 0.1 (0.0-0.2) K/mcL PT 21.5 H (9.4-12.1) Seconds INR 1.9 Sodium 138 (136-145) mEq/L Potassium 4.1 (3.5-5.1) mEq/L Chloride 99 (98-107) mEq/L Carbon Dioxide 29 (23-29) mEq/L BUN 28 H (8-23) mg/dL Creatinine 1.29 (0.70-1.30) mg/dL Est GFR ( Amer) > 60 (> 60) Est GFR (Non-Af Amer) 56 L (> 60) BUN/Creatinine Ratio 22 (6-26) Glucose 150 H (70-105) mg/dL Calculated Osmolality 294 (280-300) Lactic Acid (0.5-2.2) mmol/L Calcium 9.3 (8.6-10.3) mg/dL Total Bilirubin 3.7 H (0.3-1.0) mg/dL Direct Bilirubin 2.3 H (0.0-0.2) mg/dL Indirect Bilirubin 1.4 H (0.0-1.2) mg/dL AST 133 H (13-39) Units/L ALT 77 H (7-52) Units/L Alkaline Phosphatase 257 H (34-104) Units/L Troponin I 0.12 H* (< 0.04) ng/mL Serum Total Protein 7.8 (6.4-8.9) g/dL Albumin 3.9 (3.5-5.7) g/dL Globulin 3.9 H (2.4-3.5) g/dL Albumin/Globulin Ratio 1.0 L (1.1-2.2) Lipase 7 L (11-82) Units/L Urine Color (Yellow) Urine Clarity (Clear) Urine pH (5.0-8.0) pH Units Ur Specific [place] (1.010-1.025) Urine Protein (Neg-Trace) mg/dL Urine Glucose (UA) (Normal) mg/dL Urine Ketones (Negative) mg/dL Urine Blood (Negative) Urine Nitrite (Negative) Urine Bilirubin (Negative) Urine Urobilinogen (Normal) mg/dL Ur Leukocyte Esterase (Negative) Ur Culture Indicated? (NO) 02/11/19 02/11/19 Range/Units 00:15 00:20 WBC (4.3-11.1) K/mcL RBC (4.19-5.50) M/mcL Hgb (12.9-16.9) g/dL Hct (37.5-50.1) % MCV (83.0-100.0) fL MCH (28.0-33.3) pg MCHC (31.6-35.5) g/dL RDW (11.5-14.5) % Plt Count (140-400) K/mcL MPV (9.4-12.4) fL Immature Gran % (0-4) % Seg Neutrophils % % Lymphocytes % % Monocytes % % Eosinophils % % Basophils % % Neutrophils # (1.6-8.9) K/mcL Lymphocytes # (0.6-4.6) K/mcL Monocytes # (0.0-1.3) K/mcL Eosinophils # (0.0-0.6) K/mcL Basophils # (0.0-0.2) K/mcL PT (9.4-12.1) Seconds INR Sodium (136-145) mEq/L Potassium (3.5-5.1) mEq/L Chloride (98-107) mEq/L Carbon Dioxide (23-29) mEq/L BUN (8-23) mg/dL Creatinine (0.70-1.30) mg/dL Est GFR ( Amer) (> 60) Est GFR (Non-Af Amer) (> 60) BUN/Creatinine Ratio (6-26) Glucose (70-105) mg/dL Calculated Osmolality (280-300) Lactic Acid 2.6 H (0.5-2.2) mmol/L Calcium (8.6-10.3) mg/dL Total Bilirubin (0.3-1.0) mg/dL Direct Bilirubin (0.0-0.2) mg/dL Indirect Bilirubin (0.0-1.2) mg/dL AST (13-39) Units/L ALT (7-52) Units/L Alkaline Phosphatase (34-104) Units/L Troponin I (< 0.04) ng/mL Serum Total Protein (6.4-8.9) g/dL Albumin (3.5-5.7) g/dL Globulin (2.4-3.5) g/dL Albumin/Globulin Ratio (1.1-2.2) Lipase (11-82) Units/L Urine Color Dark Yellow (Yellow) Urine Clarity Clear (Clear) Urine pH 5.5 (5.0-8.0) pH Units Ur Specific [place] 1.014 (1.010-1.025) Urine Protein Negative (Neg-Trace) mg/dL Urine Glucose (UA) Normal (Normal) mg/dL Urine Ketones Negative (Negative) mg/dL Urine Blood Negative (Negative) Urine Nitrite Negative (Negative) Urine Bilirubin Moderate H (Negative) Urine Urobilinogen 4.0 H (Normal) mg/dL Ur Leukocyte Esterase Negative (Negative) Ur Culture Indicated? NO (NO) - Radiology Data Radiology results reviewed: Yes I reviewed the patient's radiology results. Abdomen/Pelvis CT 02/10/19 19:19 enlargement causes impression upon the bladder, normal distention of the bladder. Peritoneum/Retroperitoneum: No free air, free fluid or abscess. There are prominent lymph nodes along the gastrohepatic ligament and periaortic lymph nodes in the upper abdomen. Bones/Soft Tissues: No fracture or other acute osseous process. IMPRESSION: Intrahepatic biliary dilation despite the presence of a properly placed common bile duct stent. Correlate with the functionality of the stent. In these 2 separate low-density lesions in the liver highly suspicious for metastatic disease. There is mild ill definition of the khanna of the gallbladder and a small gallstone. Cholecystitis is a consideration. Left adrenal nodule suspicious for a metastatic focus although a nodule was present on the comparison. The nodule is increased in size however. There also is a small nodule of the right adrenal gland measuring 1.2 cm. D/ / Taco Truong MD / Taco Truong MD Interpreting Provider: Taco Truong MD Chest X-Ray 02/11/19 01:32 IMPRESSION: Central line in satisfactory position. D/ / Jeff Chand MD / Jeff Chand MD Interpreting Provider: Jeff Chand MD Critical Care Time Critical Care Time: Yes Total Critical Care Time: 40 Attestation: Critical care performed: Time is exclusive of separately billable procedures. Time includes: direct patient care, patient reassessment, coordination of patient care, interpretation of data (laboratory data, radiology data, and respiratory data), review of patient's medical records, medical consultation and documentation of patient care. Procedures included in critical care time: Procedures excluded from critical care time: Attestation Statement - Attestation Attestation: I, Gilberto Bond MD, personally evaluated this patient and discussed their management with the resident physician. I reviewed the resident's note and agree with the documented findings, medical decision making, and plan of care. I reviewed the residents documentation and agree with the residents assessment and plan of care. I have personally had face to face time with the patient. I personally supervised and was present for the patricio/critical portions of the following procedures completed by the resident: Right IJ central line placement. This patient was signed out at shift change from Dr. Temple and Dr. Abdi. Please refer to their notes for complete details of the history and physical examination. At shift change patient has been accepted for transfer to [facility] and is awaiting bed assignment. [facility] was recontacted and advised that they would not likely have a bed tonight for this patient. Patient's condition deteriorated here in the emergency department. He spiked a fever up to 104. He became hypotensive. He was given a fluid bolus and remained hypotensive. A right IJ central line was placed by Dr. Bellamy and patient was started on norepinephrine infusion. On examination patient is a well-developed well-nourished male in no acute distress. He is alert and oriented. No cyanosis or diaphoresis. Breath sounds are equal bilaterally. Heart regular rate and rhythm. Skin is warm and dry with good color. The hospitalist, Dr. Charles, was consulted and accepted admission of the patient here while awaiting bed placement at [facility].
[2019-02-11] MEDS ORDERED: Piperacillin/Tazobactam 3.375 GM in 0.9 % Sodium Chloride Mini Bag 100 ML IVPB STA (01:14)
[2019-02-11] MEDS: Norepinephrine 4 MG in D5% in Water 250 ML IVC SCH ×2 (01:44→10:38)
[2019-02-11] MEDS ORDERED: Naloxone 0.4 MG/ML INJ IVP PRN (03:07)
--- NOTE | 2019-02-11 03:27 | Internal Med History&Physical ---
<Wilfred Day - Last Filed: 02/11/19 05:58> Date of Encounter: 02/11/19 Time of Encounter: 03:27 Internal Medicine - H&P: HPI Chief complaint: Nausea, vomiting, epigastric pain History of present illness: Mr. Lambert is a 68-year-old male with a PMH of CAD s/p multiple stents, recently diagnosed cancer (uncertain location; either pancreas or bile duct) A fib, CHF, GERD, prior HIT, and HTN who presented to [facility] ED on 02/10/19 with a chief complaint of epigastric pain radiating to the back, nausea, and vomiting. Reports a similar episode in the past, but does not remember his previous diagnosis. He has a history of ERCP with a stent deployed in CBD; adenocarcinoma of the pancreas was suspected at that time. Has been following at the [facility] for this. Upon arrival, vitals showed temp of 99.3 and RR 20. Labs showed WBCs 13.1 with left shift, lactate 2.6, AST 133, ALT 77, ALP 257, total bilirubin 3.7, and troponin of 0.12. UA demonstrated a moderate amount of bilirubin. CXR showed mild atelectatic changes in RLL and stable cardiomegaly. CT abd/pelv demonstrated intrahepatic biliary dilation despite presence of properly placed C BD stent, possible metastatic disease, possible cholecystitis. 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 He was initially given Dilaudid, Rocephin, and Zofran. Patient later became tired and weak in the ED. He became febrile with a temp of 104.1. Patient became hypotensive in the ER despite receiving fluid resuscitation. A right-sided IJ CVC was placed. He was placed on levophed for pressure support. Antibiotic coverage was broadened to vancomycin and Zosyn. He has been accepted at the [facility], but no bed is available at this time. During my interview, patient is somnolent. He is able to answer some questions, but quickly falls back asleep. Majority of history was obtained from family members. He currently denies nausea, vomiting, abdominal pain, or chest pain. He is noted to have jaundice and scleral icterus, which his family says has been present for approximately 2 weeks. No evidence of volume overload. He has no further complaints. Treatment plan summary: Patient has been accepted to [facility] but bed is currently unavailable; Patient will be monitored and treated in ICU for the time being. On vancomycin and Zosyn for septic shock. Source unknown at this time, but may be due to biliary tract infection. Continue Levophed for pressure support. Blood CXs repeat labs, and repeat lactate are all pending. Troponin elevated troponin at 0.12 (baseline 0.06); repeat troponin pending. Spoke with Dr. Mendez, who reviewed the patients EKG and compared to previous. He states that this is likely an old infarct. Unable to place patient on heparin drip due to history of HIT. We have resumed his ASA, Plavix, and Eliquis. Cardiology consulted for further recommendations. Holding home antihypertensives in the setting of shock. Will continue fluid resuscitation with NS at 125cc/hr. Holding diuretics for the time being; will start if patient develops volume overload. Past Med Surg Social Fam HX - Past Medical History Medical history: arthritis, atrial fibrillation, CHF, coronary artery disease, GERD, hypertension, myocardial infarction Psychiatric history: no psych history - Past Surgical History Surgical History: appendectomy, herniorrhaphy, orthopedic, other Additional surgical history: foot drop bilaterally, Right hip surgery, left knee replacement. - Social History Smoking Status: Never smoker Smokeless Tobacco Status: No Alcohol use: none Drug use: none - Family History Mother Living Status: Hx Family Cancer: Yes Father Living Status: Hx Family Cardiac Disorders: No Hx Family Respiratory Disorders: No Hx Family Cancer: Yes (pancreatic) Hx Family Endocrine Disorder: Yes (Pts father was diabetic) Internal Medicine - H&P: Meds Glucosamine HCl/Chondr Foy A Na [Cvs Glucosamine-Chondr Tablet] 1 tab PO DAILY 03/27/17 [History] Omeprazole [PriLOSEC] 40 mg PO DAILY 03/27/17 [History] Zolpidem [Ambien] 10 mg PO HS PRN 03/27/17 [History] Apixaban [Eliquis] 5 mg PO BID #60 tablet 09/27/18 [Rx] Aspirin 81 mg PO DAILY #30 tab.chew 10/04/18 [Rx] Clopidogrel [Plavix] 75 mg PO DAILY #30 tablet 10/04/18 [Rx] Nitroglycerin 0.4 mg SL Q5MIN PRN #30 tab.subl 10/04/18 [Rx] Potassium Chloride 40 meq PO DAILY #60 tab.er.prt 10/04/18 [Rx] Sacubitril/Valsartan 24/26 MG [Entresto 24 mg-26 mg Tablet] 1 each PO BID 10/14 [History] Tramadol HCl [Ultram] 50 mg PO BID PRN 10/14/18 [History] Pregabalin [Lyrica] 150 mg PO BID 11/05/18 [History] Amiodarone HCl 200 mg PO DAILY 02/10/19 [History] Atorvastatin Calcium 80 mg PO DAILY 02/10/19 [History] Isosorbide MONOnitrate (24 HR) [Imdur] 30 mg PO BID 02/10/19 [History] Metoprolol [Lopressor] 12.5 mg PO Q12H 02/10/19 [History] Spironolactone 12.5 mg PO DAILY 02/10/19 [History] Torsemide [Demadex] 40 mg PO BID 02/10/19 [History] Allergy/AdvReac Type Severity Reaction Status Date / Time heparin AdvReac See Verified 11/05/18 14:48 Comments Heparin Analogues AdvReac See Verified 11/05/18 14:48 Comments ROS unobtainable: due to mental status All Systems PM: A 10-system review of systems was performed and is negative for pertinent findings except as documented above in the HPI. - Constitutional Vitals: Temp Pulse Resp BP Pulse Ox 98.8 F 89 23 80/52 96 02/11/19 03:08 02/11/19 03:08 02/11/19 03:08 02/11/19 03:08 02/11/19 03:08 Exam: General: Somnolent; no acute distress Head: atraumatic, normocephalic Eye: PERRL, EOMI, scleral icterus present Neck: Supple, trachea midline; No lymphadenopathy Respiratory: Diminished breath sounds bilaterally; No accessory muscle use, wheezes, rales, or rhonchi Cardiovascular: RRR, +S1, +S2; no murmurs, rubs, gallops Abdomen: Soft, nontender Extremities: warm, radial pulses palpable and symmetrical; no clubbing, edema, or cyanosis Neurological: Unable to assess Psychiatric: Unable to assess Skin: Dry, intact; jaundiced Internal Med - H&P Results - Labs CBC & Chem 7: 02/11/19 04:30 02/11/19 04:30 Labs: Short CBC 02/10/19 Range/Units 19:21 WBC 13.1 H (4.3-11.1) K/mcL Hgb 14.2 (12.9-16.9) g/dL Hct 46.3 (37.5-50.1) % Plt Count 352 (140-400) K/mcL Neutrophils # 11.5 H (1.6-8.9) K/mcL BMP 02/10/19 19:21 Sodium 138 Potassium 4.1 Chloride 99 Carbon Dioxide 29 BUN 28 H Creatinine 1.29 Glucose 150 H Calcium 9.3 Cardiac Enzymes 02/10/19 Range/Units 19:21 Troponin I 0.12 H* (< 0.04) ng/mL Liver Function 02/10/19 Range/Units 19:21 Total Bilirubin 3.7 H (0.3-1.0) mg/dL Direct Bilirubin 2.3 H (0.0-0.2) mg/dL AST 133 H (13-39) Units/L ALT 77 H (7-52) Units/L Alkaline Phosphatase 257 H (34-104) Units/L Albumin 3.9 (3.5-5.7) g/dL Urine 02/11/19 Range/Units 00:15 Urine Color Dark Yellow (Yellow) Urine Clarity Clear (Clear) Urine pH 5.5 (5.0-8.0) pH Units Ur Specific [place] 1.014 (1.010-1.025) Urine Protein Negative (Neg-Trace) mg/dL Urine Glucose (UA) Normal (Normal) mg/dL - Impressions ITS Impressions Chest X-Ray 02/10/19 19:16 IMPRESSION: Mild atelectatic changes in the right lower lobe. Stable cardiomegaly. No evidence of CHF or pneumonia. D/ / 02/10/2019 20:13:09 Jessa Cavazos MD / [facility] Interpreting Provider: Jessa Cavazos MD Abdomen/Pelvis CT 02/10/19 19:19 enlargement causes impression upon the bladder, normal distention of the bladder. Peritoneum/Retroperitoneum: No free air, free fluid or abscess. There are prominent lymph nodes along the gastrohepatic ligament and periaortic lymph nodes in the upper abdomen. Bones/Soft Tissues: No fracture or other acute osseous process. IMPRESSION: Intrahepatic biliary dilation despite the presence of a properly placed common bile duct stent. Correlate with the functionality of the stent. In these 2 separate low-density lesions in the liver highly suspicious for metastatic disease. There is mild ill definition of the khanna of the gallbladder and a small gallstone. Cholecystitis is a consideration. Left adrenal nodule suspicious for a metastatic focus although a nodule was present on the comparison. The nodule is increased in size however. There also is a small nodule of the right adrenal gland measuring 1.2 cm. D/ / Taco Truong MD / Taco Truong MD Interpreting Provider: Taco Truong MD Chest X-Ray 02/11/19 01:32 IMPRESSION: Central line in satisfactory position. D/ / Jeff Chand MD / Jeff Chand MD Interpreting Provider: Jeff Chand MD - Assessment and Plan (1) Septic shock Current Visit: Yes Status: Acute Assessment and plan: Assessment - Patient met 4/4 SIRS criteria with tachycardia, tachypnea, leukocytosis, and fever; lactate was 2.3 - Became hypotensive in the ER which did not respond to fluid resuscitation; subsequently placed on levpohed for pressure support - Etiology is unknown at this time; possible infection source is the biliary tract/gallbladder - CT abd/pelv: Intrahepatic biliary dilation, evidence of metastatic disease, possible cholecystitis - CXR showed no evidence of pneumonia, UA showed no evidence of UTI - Initially received 1 dose of Rocephin; coverage broadened to Vancomycin and Zosyn once patient became febrile and hypotensive Plan - Will draw blood cultures 2 - Repeat lactic acid with morning labs - Repeat CBC and CMP in the a.m. - Continue vancomycin and Zosyn - Continue levophed for pressor support; maintain MAP >65 - Will hold home antihypertensive medications in the setting of shock (2) Elevated troponin Current Visit: Yes Status: Acute Assessment and plan: Assessment - Found to have an elevated troponin on arrival at 0.12 - Baseline troponin per chart review is approximately 0.06 - Initially presented with epigastric pain, nausea, vomiting, but denies active chest pain - EKG demonstrated anterior old infarct with minimal ST elevations in the anterior leads - Known history of CAD s/p 2 stents on ASA and plavix - Spoke with Dr. Mendez, who reviewed the patients EKG; states that these changes are likely an old infarct and nothing acute Plan - Will consult cardiology - Trend troponin 3 (3) Altered mental status Current Visit: Yes Status: Acute Assessment and plan: Assessment - Patient was noted to be altered and somnolent in the ED after arrival - Etiology is likely multifactorial: Contributory factors include septic shock, Dilaudid - Patient can be aroused and answers a few questions, but will quickly fall back asleep Plan - Will reassess patients mental status in a few hours - Continue treatment for septic shock as noted above with vancomycin, Zosyn, and Levophed for pressure support Qualifiers: Qualified Code(s): R41.82 - Altered mental status, unspecified (4) Heart failure with reduced ejection fraction Current Visit: Yes Status: Acute Assessment and plan: Assessment - Known history of heart failure with reduced ejection fraction - TTE on 10/14/18: EF 45-50%, severe concentric LVH, mild global LV systolic dysfunction - Patient normally takes torsemide at home - No signs of volume overload present on physical exam Plan - Will hold off on diuresis for the time being; will continue fluid resuscitation and pressure support in the setting of septic shock - Will resume diuretics if pressure improves and he becomes volume overloaded Qualifiers: Qualified Code(s): I50.20 - Unspecified systolic (congestive) heart failure (5) Transaminitis Current Visit: Yes Status: Acute Assessment and plan: - AST: 133, ALT 77, alkaline phosphatase 257, total bilirubin 3.7 - Etiology is likely secondary to pancreatic cancer - Levels are comprable to previous levels per chart review - Noted to be jaundiced with scleral icterus on exam - Per patients family, patient has no prior EtOH use - Will repeat LFTs with a.m. labs (6) CAD (coronary artery disease) Current Visit: Yes Status: Acute Assessment and plan: Assessment - Patient has a known history of coronary artery disease status post multiple stents - According to patients family, patients last stent was in September - He is currently on aspirin and Plavix for this Plan - We will continue patients home aspirin and Plavix - Patients metoprolol, spironolactone, Imdur being held in the setting of hypotension - Continuous telemetry Qualifiers: Qualified Code(s): I25.10 - Atherosclerotic heart disease of [place] coronary artery without angina pectoris (7) Afib Current Visit: Yes Status: Acute Assessment and plan: - Patient has atrial fibrillation on amiodarone and Eliquis - Resume home medications Qualifiers: Qualified Code(s): I48.91 - Unspecified atrial fibrillation (8) DVT prophylaxis Current Visit: Yes Status: Acute Assessment and plan: - Resume home Eliquis - Time Spent With Patient Total time spent is greater than 50% in coordination of care (as documented) at patient's floor/unit and/or counseling patient: <DelvisCarl Milad - Last Filed: 02/11/19 06:26> Date of Encounter: 02/11/19 Internal Medicine - H&P: HPI History of present illness: Mr. Lambert is a 68 year old male All Systems PM: A 10-system review of systems was performed and is negative for pertinent findings except as documented above in the HPI. - Constitutional Vitals: Temp Pulse Resp BP Pulse Ox 98.8 F 74 15 94/58 97 02/11/19 03:08 02/11/19 05:00 02/11/19 05:00 02/11/19 05:00 02/11/19 05:00 Internal Med - H&P Results - Labs CBC & Chem 7: 02/11/19 04:30 02/11/19 04:30 Labs: Short CBC 02/10/19 02/11/19 Range/Units 19:21 04:30 WBC 13.1 H 24.6 H D (4.3-11.1) K/mcL Hgb 14.2 12.4 L D (12.9-16.9) g/dL Hct 46.3 40.2 (37.5-50.1) % Plt Count 352 301 (140-400) K/mcL Neutrophils # 11.5 H 23.0 H (1.6-8.9) K/mcL BMP 02/10/19 02/11/19 19:21 04:30 Sodium 138 139 Potassium 4.1 3.6 Chloride 99 103 Carbon Dioxide 29 25 BUN 28 H 36 H Creatinine 1.29 1.92 H Glucose 150 H 199 H Calcium 9.3 8.4 L Cardiac Enzymes 02/10/19 02/11/19 Range/Units 19:21 04:30 Troponin I 0.12 H* 0.24 H* (< 0.04) ng/mL Liver Function 02/10/19 Range/Units 19:21 Total Bilirubin 3.7 H (0.3-1.0) mg/dL Direct Bilirubin 2.3 H (0.0-0.2) mg/dL AST 133 H (13-39) Units/L ALT 77 H (7-52) Units/L Alkaline Phosphatase 257 H (34-104) Units/L Albumin 3.9 (3.5-5.7) g/dL Urine 02/11/19 Range/Units 00:15 Urine Color Dark Yellow (Yellow) Urine Clarity Clear (Clear) Urine pH 5.5 (5.0-8.0) pH Units Ur Specific [place] 1.014 (1.010-1.025) Urine Protein Negative (Neg-Trace) mg/dL Urine Glucose (UA) Normal (Normal) mg/dL - Impressions ITS Impressions Chest X-Ray 02/10/19 19:16 IMPRESSION: Mild atelectatic changes in the right lower lobe. Stable cardiomegaly. No evidence of CHF or pneumonia. D/ / 02/10/2019 20:13:09 Jessa Cavazos MD / [facility] Interpreting Provider: Jessa Cavazos MD Abdomen/Pelvis CT 02/10/19 19:19 enlargement causes impression upon the bladder, normal distention of the bladder. Peritoneum/Retroperitoneum: No free air, free fluid or abscess. There are prominent lymph nodes along the gastrohepatic ligament and periaortic lymph nodes in the upper abdomen. Bones/Soft Tissues: No fracture or other acute osseous process. IMPRESSION: Intrahepatic biliary dilation despite the presence of a properly placed common bile duct stent. Correlate with the functionality of the stent. In these 2 separate low-density lesions in the liver highly suspicious for metastatic disease. There is mild ill definition of the khanna of the gallbladder and a small gallstone. Cholecystitis is a consideration. Left adrenal nodule suspicious for a metastatic focus although a nodule was present on the comparison. The nodule is increased in size however. There also is a small nodule of the right adrenal gland measuring 1.2 cm. D/ / Taco Truong MD / Taco Truong MD Interpreting Provider: Taco Truong MD Chest X-Ray 02/11/19 01:32 IMPRESSION: Central line in satisfactory position. D/ / Jeff Chand MD / Jeff Chand MD Interpreting Provider: Jeff Chand MD - Time Spent With Patient Total time spent is greater than 50% in coordination of care (as documented) at patient's floor/unit and/or counseling patient: - Attending Attestation I saw and evaluated the patient. I reviewed the residents note, performed my own physical examination and agree with findings and plan as documented in the residents note. Patient seen and examined on 02/11/19. Patient in ICU temporarily until bed opens up at [facility] where he has already been accepted. We will continue ICU monitoring, antibiotics as above. Patient's blood pressures have been stable since initiation of levophed. Discussed EKGs with on-call cardiology as there appeared to be new ST elevations compared to a previous EKG. After review, these were determined to be likely from an old infarct. Patient denies chest pain. Repeat troponin did elevated from 0.12 to 0.24. Could be related to a demand component due to hypotension and shock. Appreciate the [facility] in accepting the transfer of care of this critically ill patient.
[2019-02-11 04:45] LABS: Basophils # 0.1 K/mcL (0.0-0.2); Basophils % 0.2 %; Hematocrit 40.2 % (37.5-50.1); Immature Granulocytes % 1.2 % (0-4); Lymphocytes # 0.3 K/mcL (0.6-4.6); Lymphocytes % 1.2 %; Mean Corpuscular HGB Conc 30.8 g/dL (31.6-35.5); Mean Corpuscular Hemoglobin 27.1 pg (28.0-33.3); Mean Corpuscular Volume 87.8 fL (83.0-100.0); Mean Platelet Volume 12.2 fL (9.4-12.4); Platelet Count 301 K/mcL (140-400); Red Blood Count 4.58 M/mcL (4.19-5.50); Red Cell Distribution Width 21.1 % (11.5-14.5); Segmented Neutrophils % 93.4 %
[2019-02-11 04:54] LABS: Hemoglobin 12.4 g/dL (12.9-16.9); White Blood Count 24.6 K/mcL (4.3-11.1)
[2019-02-11 05:04] LABS: Calcium 8.4 mg/dL (8.6-10.3); Potassium 3.6 mEq/L (3.5-5.1)
[2019-02-11 05:11] LABS: Troponin I 0.24 ng/mL (< 0.04)
[2019-02-11 05:45] LABS: Platelet Estimate Normal (Normal)
[2019-02-11 06:37] LABS: Albumin 3.2 g/dL (3.5-5.7); Albumin/Globulin Ratio 1.1 (1.1-2.2); Bilirubin,Direct 4.5 mg/dL (0.0-0.2); Bilirubin,Indirect 1.3 mg/dL (0.0-1.2); Bilirubin,Total 5.8 mg/dL (0.3-1.0); Globulin 2.9 g/dL (2.4-3.5); Total Protein 6.1 g/dL (6.4-8.9)
--- NOTE | 2019-02-11 07:49 | Discharge Summary ---
<Shadia Ba - Last Filed: 02/11/19 10:50> - NOTES TO OUTPATIENT PROVIDER Notes to Outpatient Provider: Mr. 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 Transfer to [facility] for further management of possible malignancy. Orders not resulted at time of discharge: Pending orders 02/11/19 04:41 Culture,Blood [BC] Stat Date of Encounter: 02/11/19 Time of Encounter: 07:56 - Discharge Diagnosis (1) Septic shock Priority: Primary Status: Acute (2) NSTEMI (non-ST elevated myocardial infarction) Priority: Secondary Status: Acute (3) Heart failure with reduced ejection fraction Priority: Secondary Status: Acute Qualifiers: Qualified Code(s): I50.20 - Unspecified systolic (congestive) heart failure (4) Altered mental status Priority: Secondary Status: Resolved Qualifiers: Altered mental status type: unspecified Qualified Code(s): R41.82 - Altered mental status, unspecified (5) Transaminitis Priority: Secondary Status: Acute (6) Afib Priority: Secondary Status: Chronic Qualifiers: Qualified Code(s): I48.91 - Unspecified atrial fibrillation (7) CAD (coronary artery disease) Priority: Secondary Status: Chronic Qualifiers: Qualified Code(s): I25.10 - Atherosclerotic heart disease of [place] coronary artery without angina pectoris - Discharge Medications Prescriptions: Continued Glucosamine HCl/Chondr Foy A Na [Cvs Glucosamine-Chondr Tablet] 1 tab PO DAILY Omeprazole [PriLOSEC] 40 mg PO DAILY Zolpidem [Ambien] 10 mg PO HS PRN PRN Reason: Sleep Apixaban [Eliquis] 5 mg PO BID #60 tablet Nitroglycerin 0.4 mg SL Q5MIN PRN #30 tab.subl PRN Reason: Chest Pain Aspirin 81 mg PO DAILY #30 tab.chew Clopidogrel [Plavix] 75 mg PO DAILY #30 tablet Potassium Chloride 40 meq PO DAILY #60 tab.er.prt Tramadol HCl [Ultram] 50 mg PO BID PRN PRN Reason: Pain Sacubitril/Valsartan 24/26 MG [Entresto 24 mg-26 mg Tablet] 1 each PO BID Pregabalin [Lyrica] 150 mg PO BID Atorvastatin Calcium 80 mg PO DAILY Amiodarone HCl 200 mg PO DAILY Isosorbide MONOnitrate (24 HR) [Imdur] 30 mg PO BID Metoprolol [Lopressor] 12.5 mg PO Q12H Spironolactone 12.5 mg PO DAILY Torsemide [Demadex] 40 mg PO BID Home Medications: Glucosamine HCl/Chondr Foy A Na [Cvs Glucosamine-Chondr Tablet] 1 tab PO DAILY 03/27/17 [History] Omeprazole [PriLOSEC] 40 mg PO DAILY 03/27/17 [History] Zolpidem [Ambien] 10 mg PO HS PRN 03/27/17 [History] Apixaban [Eliquis] 5 mg PO BID #60 tablet 09/27/18 [Rx] Aspirin 81 mg PO DAILY #30 tab.chew 10/04/18 [Rx] Clopidogrel [Plavix] 75 mg PO DAILY #30 tablet 10/04/18 [Rx] Nitroglycerin 0.4 mg SL Q5MIN PRN #30 tab.subl 10/04/18 [Rx] Potassium Chloride 40 meq PO DAILY #60 tab.er.prt 10/04/18 [Rx] Sacubitril/Valsartan 24/26 MG [Entresto 24 mg-26 mg Tablet] 1 each PO BID 10/14/18 [History] Tramadol HCl [Ultram] 50 mg PO BID PRN 10/14/18 [History] Pregabalin [Lyrica] 150 mg PO BID 11/05/18 [History] Amiodarone HCl 200 mg PO DAILY 02/10/19 [History] Atorvastatin Calcium 80 mg PO DAILY 02/10/19 [History] Isosorbide MONOnitrate (24 HR) [Imdur] 30 mg PO BID 02/10/19 [History] Metoprolol [Lopressor] 12.5 mg PO Q12H 02/10/19 [History] Spironolactone 12.5 mg PO DAILY 02/10/19 [History] Torsemide [Demadex] 40 mg PO BID 02/10/19 [History] Allergies/Adverse Reactions: Allergy/AdvReac Type Severity Reaction Status Date / Time heparin AdvReac See Verified 11/05/18 14:48 Comments Heparin Analogues AdvReac See Verified 11/05/18 14:48 Comments Procedures and tests throughout hospitalization: Blood culture Labs on day of discharge: Labs from last 24 hours 02/11/19 02/11/19 02/11/19 04:30 04:30 04:30 WBC RBC Hgb Hct MCV MCH MCHC RDW Plt Count MPV Immature Gran % Seg Neutrophils % Lymphocytes % Monocytes % Eosinophils % Basophils % Neutrophils # Lymphocytes # Monocytes # Eosinophils # Basophils # Platelet Estimate PT INR Sodium Potassium Chloride Carbon Dioxide BUN Creatinine Est GFR ( Amer) Est GFR (Non-Af Amer) BUN/Creatinine Ratio Glucose POC Glucose Calculated Osmolality Lactic Acid 2.3 H Calcium Total Bilirubin 5.8 H Direct Bilirubin 4.5 H Indirect Bilirubin 1.3 H AST 157 H ALT 106 H Alkaline Phosphatase 270 H Troponin I 0.24 H* B-Natriuretic Peptide 1884 H Serum Total Protein 6.1 L Albumin 3.2 L Globulin 2.9 Albumin/Globulin Ratio 1.1 Lipase Urine Color Urine Clarity Urine pH Ur Specific [place] Urine Protein Urine Glucose (UA) Urine Ketones Urine Blood Urine Nitrite Urine Bilirubin Urine Urobilinogen Ur Leukocyte Esterase Ur Culture Indicated? 02/11/19 02/11/19 02/11/19 04:30 04:30 03:01 WBC 24.6 H D RBC 4.58 Hgb 12.4 L D Hct 40.2 MCV 87.8 MCH 27.1 L MCHC 30.8 L RDW 21.1 H Plt Count 301 MPV 12.2 Immature Gran % 1.2 Seg Neutrophils % 93.4 Lymphocytes % 1.2 Monocytes % 4.0 Eosinophils % 0.0 Basophils % 0.2 Neutrophils # 23.0 H Lymphocytes # 0.3 L Monocytes # 1.0 Eosinophils # 0.0 Basophils # 0.1 Platelet Estimate Normal PT INR Sodium 139 Potassium 3.6 Chloride 103 Carbon Dioxide 25 BUN 36 H Creatinine 1.92 H Est GFR ( Amer) 43 L Est GFR (Non-Af Amer) 35 L BUN/Creatinine Ratio 19 Glucose 199 H POC Glucose 182 H Calculated Osmolality 302 H Lactic Acid Calcium 8.4 L Total Bilirubin Direct Bilirubin Indirect Bilirubin AST ALT Alkaline Phosphatase Troponin I B-Natriuretic Peptide Serum Total Protein Albumin Globulin Albumin/Globulin Ratio Lipase Urine Color Urine Clarity Urine pH Ur Specific [place] Urine Protein Urine Glucose (UA) Urine Ketones Urine Blood Urine Nitrite Urine Bilirubin Urine Urobilinogen Ur Leukocyte Esterase Ur Culture Indicated? 0802/11/19 02/10/19 00:20 00:15 19:21 WBC 13.1 H RBC 5.16 Hgb 14.2 Hct 46.3 MCV 89.7 MCH 27.5 L MCHC 30.7 L RDW 20.9 H Plt Count 352 MPV 12.0 Immature Gran % 0.5 Seg Neutrophils % 88.1 Lymphocytes % 6.3 Monocytes % 3.2 Eosinophils % 1.5 Basophils % 0.4 Neutrophils # 11.5 H Lymphocytes # 0.8 Monocytes # 0.4 Eosinophils # 0.2 Basophils # 0.1 Platelet Estimate PT INR Sodium Potassium Chloride Carbon Dioxide BUN Creatinine Est GFR ( Amer) Est GFR (Non-Af Amer) BUN/Creatinine Ratio Glucose POC Glucose Calculated Osmolality Lactic Acid 2.6 H Calcium Total Bilirubin Direct Bilirubin Indirect Bilirubin AST ALT Alkaline Phosphatase Troponin I B-Natriuretic Peptide Serum Total Protein Albumin Globulin Albumin/Globulin Ratio Lipase Urine Color Dark Yellow Urine Clarity Clear Urine pH 5.5 Ur Specific [place] 1.014 Urine Protein Negative Urine Glucose (UA) Normal Urine Ketones Negative Urine Blood Negative Urine Nitrite Negative Urine Bilirubin Moderate H Urine Urobilinogen 4.0 H Ur Leukocyte Esterase Negative Ur Culture Indicated? NO 02/10/19 02/10/19 19:21 19:21 WBC RBC Hgb Hct MCV MCH MCHC RDW Plt Count MPV Immature Gran % Seg Neutrophils % Lymphocytes % Monocytes % Eosinophils % Basophils % Neutrophils # Lymphocytes # Monocytes # Eosinophils # Basophils # Platelet Estimate PT 21.5 H INR 1.9 Sodium 138 Potassium 4.1 Chloride 99 Carbon Dioxide 29 BUN 28 H Creatinine 1.29 Est GFR ( Amer) > 60 Est GFR (Non-Af Amer) 56 L BUN/Creatinine Ratio 22 Glucose 150 H POC Glucose Calculated Osmolality 294 Lactic Acid Calcium 9.3 Total Bilirubin 3.7 H Direct Bilirubin 2.3 H Indirect Bilirubin 1.4 H AST 133 H ALT 77 H Alkaline Phosphatase 257 H Troponin I 0.12 H* B-Natriuretic Peptide Serum Total Protein 7.8 Albumin 3.9 Globulin 3.9 H Albumin/Globulin Ratio 1.0 L Lipase 7 L Urine Color Urine Clarity Urine pH Ur Specific [place] Urine Protein Urine Glucose (UA) Urine Ketones Urine Blood Urine Nitrite Urine Bilirubin Urine Urobilinogen Ur Leukocyte Esterase Ur Culture Indicated? Preliminary micro results at discharge 02/11/19 04:41 Blood Culture - Preliminary Peripheral Venipuncture Culture is incubating and being continuously monitored for growth. Final report to follow. 02/11/19 04:34 Blood Culture - Preliminary Peripheral Venipuncture Culture is incubating and being continuously monitored for growth. Final report to follow. - Impressions ITS Impressions Chest X-Ray 02/10/19 19:16 IMPRESSION: Mild atelectatic changes in the right lower lobe. Stable cardiomegaly. No evidence of CHF or pneumonia. D/ / 02/10/2019 20:13:09 Jessa Cavazos MD / earana paula Interpreting Provider: Jessa Cavazos MD Abdomen/Pelvis CT 02/10/19 19:19 enlargement causes impression upon the bladder, normal distention of the bladder. Peritoneum/Retroperitoneum: No free air, free fluid or abscess. There are prominent lymph nodes along the gastrohepatic ligament and periaortic lymph nodes in the upper abdomen. Bones/Soft Tissues: No fracture or other acute osseous process. IMPRESSION: Intrahepatic biliary dilation despite the presence of a properly placed common bile duct stent. Correlate with the functionality of the stent. In these 2 separate low-density lesions in the liver highly suspicious for metastatic disease. There is mild ill definition of the [place] of the gallbladder and a small gallstone. Cholecystitis is a consideration. Left adrenal nodule suspicious for a metastatic focus although a nodule was present on the comparison. The nodule is increased in size however. There also is a small nodule of the right adrenal gland measuring 1.2 cm. D/ / Taco Truong MD / Taco Truong MD Interpreting Provider: Taco Truong MD Chest X-Ray 02/11/19 01:32 IMPRESSION: Central line in satisfactory position. D/ / Jeff Chand MD / Jeff Chand MD Interpreting Provider: Jeff Chand MD - Imaging and Cardiology CT scan - abdomen Additional comments: Report reviewed Date of admission: 08/13/19 02:24 Primary care physician: Lluvia Palomino CNP Consults: 02/11/19 06:03 Consult to Cardiology [CONS] Routine Comment: Consulting Provider: Joey Biswas Reason for Consult: elevated troponin, hx of CAD w/ 2 stents Call Completed: No Discharging clinician: Shadia Ba Anticipated date of discharge: 02/11/19 - Patient Status Disposition: Transfer Critical Access Hosp Condition: Critical Functional capacity at discharge: independent ambulation Overall status at discharge: patient is not back to baseline - Discharge Instructions Follow Up With: Lluvia Palomino CNP [Primary Care Provider] - - Diet and Activity Activity: as per physical therapy Diet: low fat, low cholesterol, low salt diet - Hospital Course Hospital course: Mr. 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 At presentation he had temperature of 99.3. In the ED his temperature went up to 104.1 and became hypotensive and responded to fluid resuscitation. Has a right side IJ central venous catheter. Heart rate was noted to be 131 rest her rate of 20 with white blood cell count 13.1. Bilirubin is 0.7 with AST of 133 and ALT of 77 and alkaline phosphatase 257 and troponin of 0.12. CT of the abdomen and pelvis shows intrahepatic biliary dilation with the presence of common bile duct stent and possible metastatic disease and possible cholecystitis. Zosyn and vancomycin are initiated for broad-spectrum coverage concern of cholecystitis. Home medication reconciliate with but currently holding amiodarone and metoprolol as well as nitroglycerin given bradycardia and hypotension. Also holding eliquis in case patient requires surgical interventions upon transfer. This morning Mr. Lambert reports his abdominal pain has resolved additionally nausea and emesis is also resolved. Due to his recent follow with [facility] for malignancy he would benefit from further recommendations and care there. Has been accepted to [facility]. Time spent discussing smoking cessation with patient: more than 10 minutes - Time Spent with Patient Total time spent providing and/or coordinating discharge services: Physical Examination Vital Signs: Vital Signs, Last 4 Hours Pulse Resp BP Pulse Ox 02/11/19 06:00 66 15 98/60 97 08/13/19 05:00 74 15 94/58 97 02/11/19 04:00 76 18 98/61 96 General appearance: no acute distress, alert Eyes: nonicteric ENT: oropharynx moist Auscultation: bilateral: clear Cardiovascular: irregular rhythm (afib) Gastrointestinal: hypoactive bowel sounds, soft, non-tender Integumentary: normal Extremities: no cyanosis, no edema Musculoskeletal: no deformities non-focal exam, pupils equal and round mood appropriate, affect normal <Abdirizak Mitchell S - Last Filed: 02/11/19 19:27> Orders not resulted at time of discharge: Pending orders 02/11/19 04:41 Culture,Blood [BC] Stat Date of Encounter: 02/11/19 Labs on day of discharge: Labs from last 24 hours 02/11/19 02/11/19 02/11/19 08:19 04:30 04:30 WBC RBC Hgb Hct MCV MCH MCHC RDW Plt Count MPV Immature Gran % Seg Neutrophils % Lymphocytes % Monocytes % Eosinophils % Basophils % Neutrophils # Lymphocytes # Monocytes # Eosinophils # Basophils # Platelet Estimate PT INR Sodium Potassium Chloride Carbon Dioxide BUN Creatinine Est GFR ( Amer) Est GFR (Non-Af Amer) BUN/Creatinine Ratio Glucose POC Glucose Calculated Osmolality Lactic Acid 1.6 2.3 H Calcium Total Bilirubin 5.8 H Direct Bilirubin 4.5 H Indirect Bilirubin 1.3 H AST 157 H ALT 106 H Alkaline Phosphatase 270 H Troponin I 0.24 H* B-Natriuretic Peptide Serum Total Protein 6.1 L Albumin 3.2 L Globulin 2.9 Albumin/Globulin Ratio 1.1 Lipase Urine Color Urine Clarity Urine pH Ur Specific [place] Urine Protein Urine Glucose (UA) Urine Ketones Urine Blood Urine Nitrite Urine Bilirubin Urine Urobilinogen Ur Leukocyte Esterase Ur Culture Indicated? 02/11/19 02/11/19 02/11/19 04:30 04:30 04:30 WBC 24.6 H D RBC 4.58 Hgb 12.4 L D Hct 40.2 MCV 87.8 MCH 27.1 L MCHC 30.8 L RDW 21.1 H Plt Count 301 MPV 12.2 Immature Gran % 1.2 Seg Neutrophils % 93.4 Lymphocytes % 1.2 Monocytes % 4.0 Eosinophils % 0.0 Basophils % 0.2 Neutrophils # 23.0 H Lymphocytes # 0.3 L Monocytes # 1.0 Eosinophils # 0.0 Basophils # 0.1 Platelet Estimate Normal PT INR Sodium 139 Potassium 3.6 Chloride 103 Carbon Dioxide 25 BUN 36 H Creatinine 1.92 H Est GFR ( Amer) 43 L Est GFR (Non-Af Amer) 35 L BUN/Creatinine Ratio 19 Glucose 199 H POC Glucose Calculated Osmolality 302 H Lactic Acid Calcium 8.4 L Total Bilirubin Direct Bilirubin Indirect Bilirubin AST ALT Alkaline Phosphatase Troponin I B-Natriuretic Peptide 1884 H Serum Total Protein Albumin Globulin Albumin/Globulin Ratio Lipase Urine Color Urine Clarity Urine pH Ur Specific [place] Urine Protein Urine Glucose (UA) Urine Ketones Urine Blood Urine Nitrite Urine Bilirubin Urine Urobilinogen Ur Leukocyte Esterase Ur Culture Indicated? 02/11/19 02/11/19 02/11/19 03:01 00:20 00:15 WBC RBC Hgb Hct MCV MCH MCHC RDW Plt Count MPV Immature Gran % Seg Neutrophils % Lymphocytes % Monocytes % Eosinophils % Basophils % Neutrophils # Lymphocytes # Monocytes # Eosinophils # Basophils # Platelet Estimate PT INR Sodium Potassium Chloride Carbon Dioxide BUN Creatinine Est GFR ( Amer) Est GFR (Non-Af Amer) BUN/Creatinine Ratio Glucose POC Glucose 182 H Calculated Osmolality Lactic Acid 2.6 H Calcium Total Bilirubin Direct Bilirubin Indirect Bilirubin AST ALT Alkaline Phosphatase Troponin I B-Natriuretic Peptide Serum Total Protein Albumin Globulin Albumin/Globulin Ratio Lipase Urine Color Dark Yellow Urine Clarity Clear Urine pH 5.5 Ur Specific [place] 1.014 Urine Protein Negative Urine Glucose (UA) Normal Urine Ketones Negative Urine Blood Negative Urine Nitrite Negative Urine Bilirubin Moderate H Urine Urobilinogen 4.0 H Ur Leukocyte Esterase Negative Ur Culture Indicated? NO 02/10/19 02/10/19 02/10/19 19:21 19:21 19:21 WBC 13.1 H RBC 5.16 Hgb 14.2 Hct 46.3 MCV 89.7 MCH 27.5 L MCHC 30.7 L RDW 20.9 H Plt Count 352 MPV 12.0 Immature Gran % 0.5 Seg Neutrophils % 88.1 Lymphocytes % 6.3 Monocytes % 3.2 Eosinophils % 1.5 Basophils % 0.4 Neutrophils # 11.5 H Lymphocytes # 0.8 Monocytes # 0.4 Eosinophils # 0.2 Basophils # 0.1 Platelet Estimate PT 21.5 H INR 1.9 Sodium 138 Potassium 4.1 Chloride 99 Carbon Dioxide 29 BUN 28 H Creatinine 1.29 Est GFR ( Amer) > 60 Est GFR (Non-Af Amer) 56 L BUN/Creatinine Ratio 22 Glucose 150 H POC Glucose Calculated Osmolality 294 Lactic Acid Calcium 9.3 Total Bilirubin 3.7 H Direct Bilirubin 2.3 H Indirect Bilirubin 1.4 H AST 133 H ALT 77 H Alkaline Phosphatase 257 H Troponin I 0.12 H* B-Natriuretic Peptide Serum Total Protein 7.8 Albumin 3.9 Globulin 3.9 H Albumin/Globulin Ratio 1.0 L Lipase 7 L Urine Color Urine Clarity Urine pH Ur Specific [place] Urine Protein Urine Glucose (UA) Urine Ketones Urine Blood Urine Nitrite Urine Bilirubin Urine Urobilinogen Ur Leukocyte Esterase Ur Culture Indicated? Preliminary micro results at discharge 02/11/19 04:41 Blood Culture - Preliminary Peripheral Venipuncture Culture is incubating and being continuously monitored for growth. Final report to follow. 02/11/19 04:34 Blood Culture - Preliminary Peripheral Venipuncture Culture is incubating and being continuously monitored for growth. Final report to follow. - Impressions ITS Impressions Chest X-Ray 02/10/19 19:16 IMPRESSION: Mild atelectatic changes in the right lower lobe. Stable cardiomegaly. No evidence of CHF or pneumonia. D/ / 02/10/2019 20:13:09 Jessa Cavazos MD / theodora Interpreting Provider: Jessa Cavazos MD Abdomen/Pelvis CT 02/10/19 19:19 enlargement causes impression upon the bladder, normal distention of the bladder. Peritoneum/Retroperitoneum: No free air, free fluid or abscess. There are prominent lymph nodes along the gastrohepatic ligament and periaortic lymph nodes in the upper abdomen. Bones/Soft Tissues: No fracture or other acute osseous process. IMPRESSION: Intrahepatic biliary dilation despite the presence of a properly placed common bile duct stent. Correlate with the functionality of the stent. In these 2 separate low-density lesions in the liver highly suspicious for metastatic disease. There is mild ill definition of the [place] of the gallbladder and a small gallstone. Cholecystitis is a consideration. Left adrenal nodule suspicious for a metastatic focus although a nodule was present on the comparison. The nodule is increased in size however. There also is a small nodule of the right adrenal gland measuring 1.2 cm. D/ / Taco Truong MD / Taco Truong MD Interpreting Provider: Taco Truong MD Chest X-Ray 02/11/19 01:32 IMPRESSION: Central line in satisfactory position. D/ / Jeff Chand MD / Jeff Chand MD Interpreting Provider: Jeff Chand MD Date of admission: 02/11/19 02:24 Primary care physician: Lluvia Palomino CNP Consults: 02/11/19 06:03 Consult to Cardiology [CONS] Routine Comment: Consulting Provider: Cardiology Zulay Reason for Consult: elevated troponin, hx of CAD w/ 2 stents Call Completed: No - Hospital Course Hospital course: Patient presented with septic shock most likely biliary source on norepinephrine drip patient was stable on this current IV vasopressor medication I agree with the current regimen to continue broad-spectrum antibiotics QUESTIONS were answer ed. Patient and the family. I saw and evaluated this patient and my medical decision-making was reviewed with the Resident Physician. I agree with the documented findings, disposition and treatment plan as described except to the extent set forth below. We independently had [id number] contact with the patient I spent 35 minutes of Critical Care time with this patient. It involved decision making of high complexity to assess, manipulate, and support vital organ system failure and/or to prevent further life threatening deterioration of the patient's condition. The time involved in the performance of separately reportable procedures was not counted toward critical care time. - Time Spent with Patient Total time spent providing and/or coordinating discharge services: Greater than 30 minutes
[2019-02-11] MEDS ORDERED: Aspirin 81 MG TAB.CHEW PO SCH (09:00)
[2019-02-11] MEDS ORDERED: Apixaban 5 MG TABLET PO SCH (09:00)
[2019-02-11] MEDS ORDERED: *HR* Amiodarone 200 MG TABLET PO SCH (09:00)
[2019-02-11] MEDS ORDERED: Piperacillin/Tazobactam 3.375 GM in 0.9 % Sodium Chloride Mini Bag 100 ML IVPB SCH (10:00)
[2019-02-11 10:36] VITALS: BP 89/60
[2019-02-11] MEDS ORDERED: 0.9 % Sodium Chloride 2,000 ML ONE (10:58)
[2019-02-11] MEDS ORDERED: Aminoglycoside Consult 1 EACH MC ONE (11:00)
--- NOTE | 2019-02-11 19:42 | Electrocardiograph Report ---
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
== END 2019-02-11 11:01 | disposition critical access hospital (66) | DRG 871 ==
LOC: EMEROOARM 19:15 → ICNU 02-11 02:24
PROVIDERS: ADMIT Pediatrics; ATTEND Pediatrics

== ENCOUNTER 2019-07-11 13:47 | Observation (INO) ==
[2019-07-11] MEDS ORDERED: 0.9 % Sodium Chloride 1,000 ML IVC ONE ×2 (13:52→15:31)
[2019-07-11 14:34] LABS: Eosinophils % 0.5 %
[2019-07-11 14:36] LABS: Basophils % 0.2 %; Eosinophils # 0.1 K/mcL (0.0-0.6); Hematocrit 32.8 % (37.5-50.1); Hemoglobin 10.4 g/dL (12.9-16.9); Immature Granulocytes % 1.3 % (0-4); Lymphocytes # 0.4 K/mcL (0.6-4.6); Lymphocytes % 1.6 %; Mean Corpuscular HGB Conc 31.7 g/dL (31.6-35.5); Mean Corpuscular Hemoglobin 23.3 pg (28.0-33.3); Mean Corpuscular Volume 73.5 fL (83.0-100.0); Monocytes # 1.9 K/mcL (0.0-1.3); Monocytes % 7.3 %; Platelet Count 129 K/mcL (140-400); Red Blood Count 4.46 M/mcL (4.19-5.50); Red Cell Distribution Width 18.1 % (11.5-14.5); Segmented Neutrophils % 89.1 %; White Blood Count 25.8 K/mcL (4.3-11.1)
[2019-07-11 14:43] LABS: Bilirubin,Urine Negative (Negative); Blood,Urine Trace (Negative); Clarity,Urine Clear (Clear); Color,Urine Yellow (Yellow); Glucose,Urine (UA) Normal (Normal); Ketones,Urine Negative (Negative); Leukocyte Esterase,Urine Negative (Negative); Nitrite,Urine Negative (Negative); PH,Urine 5.5 pH Units (5.0-8.0); Protein,Urine Negative (Neg-Trace); Specific Gravity,Urine 1.013 (1.010-1.025); Urobilinogen,Urine Normal (Normal)
[2019-07-11 14:48] LABS: Bacteria,Urine None Seen per hpf (None-Few); Hyaline Casts,Urine None Seen per lpf (None-Few); RBC,Urine 0-3 per hpf (0-3); Squamous Epithelial Cell,Urine Moderate per lpf (None-Few); WBC,Urine 0-3 per hpf (0-3)
[2019-07-11 14:55] LABS: Basophils # 0.1 K/mcL (0.0-0.2)
[2019-07-11 15:01] LABS: Troponin I 0.15 ng/mL (< 0.04)
[2019-07-11 15:10] LABS: Alanine Aminotransferase 23 Units/L (7-52); Albumin 2.7 g/dL (3.5-5.7); Albumin/Globulin Ratio 0.9 (1.1-2.2); Alkaline Phosphatase 143 Units/L (34-104); Amylase < 10 Units/L (29-103); Aspartate Amino Transferase 32 Units/L (13-39); BUN/Creatinine Ratio 24 (6-26); Bilirubin,Total 1.4 mg/dL (0.3-1.0); Blood Urea Nitrogen 27 mg/dL (8-23); Calcium 8.3 mg/dL (8.6-10.3); Carbon Dioxide 21 mEq/L (23-29); Chloride 98 mEq/L (98-107); Globulin 3.1 g/dL (2.4-3.5); Glucose 212 mg/dL (70-105); Lipase < 3 Units/L (11-82); Osmolality,Calculated 287 (280-300); Potassium 4.7 mEq/L (3.5-5.1); Sodium 133 mEq/L (136-145); Total Protein 5.8 g/dL (6.4-8.9); eGFR For African Americans > 60 (> 60); eGFR For Non-African Americans > 60 (> 60)
[2019-07-11] MEDS ORDERED: Gadolinium Contrast Agent (WT Based) IV PRN (15:42)
[2019-07-12] MEDS ORDERED: Acetaminophen 325 MG TABLET PO PRN (01:41)
[2019-07-12] MEDS ORDERED: Vancomycin (wt based) 1,000 MG VIAL IVPB SCH (02:00)
[2019-07-12] MEDS ORDERED: MetroNIDAZOLE 500 MG/100 ML 500 MG/100 ML BAG IVPB SCH (02:00)
[2019-07-12] MEDS ORDERED: Cefepime HCl 1,000 MG in 0.9 % Sodium Chloride Mini Bag 100 ML IVPB SCH (02:00)
[2019-07-12 02:41] LABS: Basophils % 0.1 %; Eosinophils % 0.8 %; Immature Reticulocyte % 30.4 % (11.0-38.0); Lymphocytes % 2.2 %
[2019-07-12 02:43] LABS: Retculocyte # 0.03 M/mcL (0.05-0.10); Reticulocyte % 0.8 % (1.6-2.8)
[2019-07-12 02:44] LABS: Eosinophils # 0.2 K/mcL (0.0-0.6); Hematocrit 30.2 % (37.5-50.1); Hemoglobin 9.9 g/dL (12.9-16.9); Immature Granulocytes % 1.5 % (0-4); Immature Platelets 7.4 % (1.1-6.1); Lymphocytes # 0.6 K/mcL (0.6-4.6); Mean Corpuscular HGB Conc 32.8 g/dL (31.6-35.5); Mean Corpuscular Hemoglobin 23.8 pg (28.0-33.3); Mean Corpuscular Volume 72.6 fL (83.0-100.0); Monocytes # 2.2 K/mcL (0.0-1.3); Monocytes % 7.7 %; Neutrophils # 24.7 K/mcL (1.6-8.9); Red Blood Count 4.16 M/mcL (4.19-5.50); Red Cell Distribution Width 18.4 % (11.5-14.5); Segmented Neutrophils % 87.7 %; White Blood Count 28.2 K/mcL (4.3-11.1)
[2019-07-12 02:48] LABS: INR 3.1; Prothrombin Time 35.8 Seconds (9.4-12.1)
[2019-07-12] MEDS ORDERED: Naloxone 0.4 MG/ML INJ IVP PRN (03:14)
[2019-07-12] MEDS ORDERED: Aspirin Enteric Coated 81 MG Tablet PO ONE ×2 (03:20→05:04)
[2019-07-12 03:38] LABS: Platelet Count 90 K/mcL (140-400)
[2019-07-12 03:39] LABS: Platelet Estimate Decreased (Normal)
[2019-07-12 03:40] LABS: Poikilocytosis 1+ (Not Present)
[2019-07-12] MEDS ORDERED: Aspirin 81 MG TAB.CHEW ONE (05:21)
[2019-07-12 07:11] VITALS: BP 109/69
[2019-07-12] MEDS ORDERED: Aminoglycoside Consult 1 EACH MC ONE (08:14)
== END 2019-07-12 08:15 | disposition other institution (70) ==
LOC: 3NENU 13:47 → EMEROOARM 13:47 → SUATTDRO 21:04 → 3NENU 22:50
PROVIDERS: ADMIT Family Medicine; ATTEND Internal Medicine